=== PATIENT | female | born 1950 | race African-American/Black ===

== ENCOUNTER 2016-09-19 08:13 | Emergency (ER) | payer MEDICARE, OTHER ==
[~2016-09-19] VITALS: Ht 162.6 cm; Wt 57.0 kg
[~2016-09-19 08:13] MED LIST: ALBU25PO2 INH; AMBR10TA3 PO; ASPI-1035 PO; CALC667C4 PO; CARV3.1242 PO; CINA90TA PO; CLON0.1T PO; CLOP75TA33 PO; RENA VITE PO; SEVE800T8 PO
[2016-09-19] MEDS ORDERED: ACETAMINOPHEN 325MG TABLET PO ONE (09:00)
[2016-09-19 09:06] LABS: BASOPHILS % 0.8 % (0.0-2.0); DIFFERENTIAL COMMENT 0; EOSINOPHILS % 6.6 % (0.0-5.0); HEMATOCRIT. 35.9 % (36.0-48.0); HEMOGLOBIN. 11.4 g/dL (12.0-16.0); LYMPHOCYTES % 7.9 % (20.0-50.0); MEAN CORPUSCULAR HEMOGLOBIN 25.2 pg (28.0-32.0); MEAN CORPUSCULAR HGB CONC 31.8 g/dL (31.0-37.0); MEAN CORPUSCULAR VOLUME 79.2 fL (81.0-99.0); MEAN PLATELET VOLUME 7.5 fl (7.4-10.4); MONOCYTES % 5.6 % (2.0-8.0); NEUTROPHILS % 79.1 % (40.0-76.0); PLATELET 259 x1000/uL (130-400); RED BLOOD CELL COUNT 4.54 mill/uL (4.2-5.4); RED CELL DISTRIBUTION WIDTH 20.1 % (11.6-14.6); WHITE BLOOD COUNT 5.2 x1000/uL (4.5-11.0)
[2016-09-19 09:18] LABS: ALANINE AMINOTRANSFERASE 17 IU/L (13-61); ALBUMIN 2.9 g/dL (3.4-5.0); ANION GAP 13; CALCIUM 7.9 mg/dL (8.5-10.1); CARBON DIOXIDE 31 mEq/L (21-32); CHLORIDE 93 mEq/L (98-107); INDEX HEMOLYSI 1 (1-3); INDEX ICTERIC 1 (1-4); INDEX LIPEMIC 1 (1-3); UREA NITROGEN BLOOD 11 mg/dL (7-21); eGFR 10 mL/min (>60)
[2016-09-19 12:12] VITALS: BP 135/76
== END 2016-09-19 13:21 | disposition home or self-care (01) ==
LOC: ER 08:41
DX: S00.83XA Contusion of other part of head, initial encounter (principal); S70.02XA Contusion of left hip, initial encounter; S80.02XA Contusion of left knee, initial encounter; W10.8XXA Fall (on) (from) other stairs and steps, initial encounter; Y93.89 Activity, other specified; Y92.89 Other specified places as the place of occurrence of the external cause; E87.1 Hypo-osmolality and hyponatremia; R91.1 Solitary pulmonary nodule; I12.0 Hypertensive chronic kidney disease with stage 5 chronic kidney disease or end stage renal disease; N18.6 End stage renal disease; Z99.2 Dependence on renal dialysis
CPT/HCPCS: 36415; 70450; 71010; 73502; 73562; 80053; 85025; 93005; 99285

== ENCOUNTER 2016-09-21 03:31 | Emergency (ER) | payer MEDICARE, OTHER ==
[~2016-09-21] VITALS: Ht 162.6 cm; Wt 57.0 kg
[2016-09-21 04:25] LABS: BASOPHILS % 1.1 % (0.0-2.0); DIFFERENTIAL COMMENT 0; EOSINOPHILS % 7.5 % (0.0-5.0); HEMOGLOBIN. 10.8 g/dL (12.0-16.0); LYMPHOCYTES % 9.1 % (20.0-50.0); MEAN CORPUSCULAR HEMOGLOBIN 25.1 pg (28.0-32.0); MEAN CORPUSCULAR HGB CONC 31.7 g/dL (31.0-37.0); MEAN CORPUSCULAR VOLUME 79.1 fL (81.0-99.0); MEAN PLATELET VOLUME 7.5 fl (7.4-10.4); MONOCYTES % 7.6 % (2.0-8.0); NEUTROPHILS % 74.7 % (40.0-76.0); PLATELET 272 x1000/uL (130-400); RED BLOOD CELL COUNT 4.29 mill/uL (4.2-5.4); RED CELL DISTRIBUTION WIDTH 19.8 % (11.6-14.6); WHITE BLOOD COUNT 6.2 x1000/uL (4.5-11.0)
[2016-09-21 04:39] LABS: ALANINE AMINOTRANSFERASE 15 IU/L (13-61); ALBUMIN 2.9 g/dL (3.4-5.0); ANION GAP 17; CALCIUM 8.6 mg/dL (8.5-10.1); CARBON DIOXIDE 25 mEq/L (21-32); CHLORIDE 90 mEq/L (98-107); INDEX HEMOLYSI 1 (1-3); INDEX ICTERIC 1 (1-4); INDEX LIPEMIC 1 (1-3); UREA NITROGEN BLOOD 28 mg/dL (7-21); eGFR 5 mL/min (>60)
[2016-09-21 05:18] VITALS: BP 124/68
== END 2016-09-21 06:01 | disposition home or self-care (01) ==
LOC: ER 03:31
DX: M25.562 Pain in left knee (principal); I12.9 Hypertensive chronic kidney disease with stage 1 through stage 4 chronic kidney disease, or unspecified chronic kidney disease; I25.2 Old myocardial infarction; N18.9 Chronic kidney disease, unspecified; J44.9 Chronic obstructive pulmonary disease, unspecified; Z99.2 Dependence on renal dialysis; Z95.5 Presence of coronary angioplasty implant and graft; Z79.82 Long term (current) use of aspirin; W18.39XA Other fall on same level, initial encounter; Y93.89 Activity, other specified; Y92.89 Other specified places as the place of occurrence of the external cause; Y99.8 Other external cause status
CPT/HCPCS: 36415; 71010; 73562; 80053; 85025; 99285

== ENCOUNTER 2016-11-25 10:18 | Emergency (ER) | payer MEDICARE, MEDICAID ==
[~2016-11-25] VITALS: Ht 162.6 cm; Wt 59.0 kg
[~2016-11-25 10:18] MED LIST changes: -ASPI-1035 PO; +ASPI-1159 PO
[2016-11-25 11:32] LABS: BASOPHILS % 0.9 % (0.0-2.0); EOSINOPHILS % 8.5 % (0.0-5.0); HEMATOCRIT. 31.1 % (36.0-48.0); HEMOGLOBIN. 9.6 g/dL (12.0-16.0); LYMPHOCYTES % 11.3 % (20.0-50.0); MEAN CORPUSCULAR HEMOGLOBIN 24.5 pg (28.0-32.0); MEAN CORPUSCULAR VOLUME 79.5 fL (81.0-99.0); MEAN PLATELET VOLUME 7.5 fl (7.4-10.4); MONOCYTES % 7.6 % (2.0-8.0); NEUTROPHILS % 71.7 % (40.0-76.0); PLATELET 199 x1000/uL (130-400); RED BLOOD CELL COUNT 3.91 mill/uL (4.2-5.4); RED CELL DISTRIBUTION WIDTH 19.6 % (11.6-14.6)
[2016-11-25] MEDS ORDERED: SODIUM CHLORIDE 0.9% 250 ML IV ONE (11:45)
[2016-11-25] MEDS ORDERED: CARVEDILOL 3.125 MG TABLET PO ONE (11:45)
[2016-11-25 11:49] LABS: TROPONIN I 0.12 ng/mL (0.00-0.04)
[2016-11-25] MEDS ORDERED: ASPIRIN 81MG TABLET PO ONE (12:30)
[2016-11-25 12:34] LABS: PROTHROMBIN TIME 10.3 sec
[2016-11-25] MEDS ORDERED: ALBUTEROL (0.083%) 2.5MG/3ML NEB HHN STA (14:03)
[2016-11-25 17:20] VITALS: BP 145/91
== END 2016-11-25 17:21 | disposition home or self-care (01) ==
LOC: ER 13:20 → ENRESERV 16:22 → CANRESERV 16:22 → CANBEDREQ 17:20 → ER 17:21
DX: E86.9 Volume depletion, unspecified (principal); I25.119 Atherosclerotic heart disease of native coronary artery with unspecified angina pectoris; R79.89 Other specified abnormal findings of blood chemistry; I27.2 Other secondary pulmonary hypertension; I13.2 Hypertensive heart and chronic kidney disease with heart failure and with stage 5 chronic kidney disease, or end stage renal disease; N18.6 End stage renal disease; J44.9 Chronic obstructive pulmonary disease, unspecified; E78.00 Pure hypercholesterolemia, unspecified; Z99.2 Dependence on renal dialysis; Z95.5 Presence of coronary angioplasty implant and graft
CPT/HCPCS: 36415; 71010; 80048; 83880; 84484; 85025; 85610; 93005; 94640; 96360; 99285; J7050; J7611

== ENCOUNTER 2016-12-07 13:18 | Emergency (ER) | payer MEDICARE, MEDICAID ==
[~2016-12-07] VITALS: Ht 167.6 cm; Wt 70.0 kg
[~2016-12-07 13:18] MED LIST changes: +AMIO200T39 PO
[2016-12-07 15:09] LABS: BASOPHILS % 0.7 % (0.0-2.0); EOSINOPHILS % 6.9 % (0.0-5.0); HEMATOCRIT. 30.8 % (36.0-48.0); HEMOGLOBIN. 9.8 g/dL (12.0-16.0); LYMPHOCYTES % 8.7 % (20.0-50.0); MEAN CORPUSCULAR HEMOGLOBIN 25.2 pg (28.0-32.0); MEAN CORPUSCULAR VOLUME 79.1 fL (81.0-99.0); MEAN PLATELET VOLUME 7.5 fl (7.4-10.4); MONOCYTES % 9.9 % (2.0-8.0); NEUTROPHILS % 73.8 % (40.0-76.0); PLATELET 266 x1000/uL (130-400); RED CELL DISTRIBUTION WIDTH 19.4 % (11.6-14.6)
[2016-12-07 15:13] LABS: CARBON DIOXIDE 36 mEq/L (21-32); CHLORIDE 96 mEq/L (98-107)
[2016-12-07 15:15] LABS: PARTIAL THROMBOPLASTIN TIME 26.8 sec (24.0-34.0); PROTHROMBIN TIME 10.1 sec
[2016-12-07 15:17] LABS: PHOSPHORUS 3.1 mg/dL (2.5-4.9)
[2016-12-07 15:19] LABS: TROPONIN I 0.05 ng/mL (0.00-0.04)
[2016-12-07 16:55] VITALS: BP 124/77
== END 2016-12-07 18:10 | disposition home or self-care (01) ==
LOC: ER 13:30 → CANBEDREQ 20:02
DX: J44.1 Chronic obstructive pulmonary disease with (acute) exacerbation (principal); I12.9 Hypertensive chronic kidney disease with stage 1 through stage 4 chronic kidney disease, or unspecified chronic kidney disease; N18.9 Chronic kidney disease, unspecified; I11.0 Hypertensive heart disease with heart failure; I50.9 Heart failure, unspecified; Z99.2 Dependence on renal dialysis; Z79.82 Long term (current) use of aspirin
CPT/HCPCS: 36415; 71010; 80053; 83690; 83735; 84100; 84443; 84484; 85025; 85610; 85730; 93005; 99285

== ENCOUNTER 2016-12-16 13:28 | Emergency (ER) | payer MEDICARE, MEDICAID ==
[~2016-12-16] VITALS: Ht 162.6 cm; Wt 70.0 kg
[2016-12-16] MEDS ORDERED: METHYLPREDNISOLONE SOD SUCC 125 MG/2 ML VIAL IV STA (13:45)
[2016-12-16] MEDS ORDERED: IPRATROPIUM BROMIDE (0.02%) 0.5MG/2.5ML NEB HHN STA (13:45)
[2016-12-16] MEDS ORDERED: ALBUTEROL (0.083%) 2.5MG/3ML NEB HHN STA (13:45)
[2016-12-16 14:11] LABS: BASOPHILS % 0.7 % (0.0-2.0); EOSINOPHILS % 8.6 % (0.0-5.0); HEMATOCRIT. 33.6 % (36.0-48.0); HEMOGLOBIN. 10.4 g/dL (12.0-16.0); LYMPHOCYTES % 8.2 % (20.0-50.0); MEAN CORPUSCULAR VOLUME 80.5 fL (81.0-99.0); MEAN PLATELET VOLUME 7.6 fl (7.4-10.4); MONOCYTES % 8.7 % (2.0-8.0); NEUTROPHILS % 73.8 % (40.0-76.0); PLATELET 206 x1000/uL (130-400); RED BLOOD CELL COUNT 4.18 mill/uL (4.2-5.4); RED CELL DISTRIBUTION WIDTH 20.4 % (11.6-14.6)
[2016-12-16 14:18] LABS: PROTHROMBIN TIME 10.2 sec
[2016-12-16 14:26] LABS: CARBON DIOXIDE 34 mEq/L (21-32); CHLORIDE 99 mEq/L (98-107); TROPONIN I 0.02 ng/mL (0.00-0.04)
[2016-12-16 18:36] VITALS: BP 116/68
== END 2016-12-16 19:12 | disposition home or self-care (01) ==
LOC: ER 13:41 → CANBEDREQ 22:50
DX: J44.1 Chronic obstructive pulmonary disease with (acute) exacerbation (principal); I50.9 Heart failure, unspecified; I11.0 Hypertensive heart disease with heart failure; N28.9 Disorder of kidney and ureter, unspecified; D64.9 Anemia, unspecified; Z99.2 Dependence on renal dialysis; Z79.82 Long term (current) use of aspirin
CPT/HCPCS: 36415; 71010; 80053; 83880; 84484; 85025; 85610; 93005; 94644; 96374; 99285; J2930; J7611

== ENCOUNTER 2017-01-06 13:18 | Inpatient (IN) | payer MEDICARE, MEDICAID ==
[~2017-01-06] VITALS: Ht 157.5 cm; Wt 63.6 kg
[~2017-01-06 13:18] MED LIST changes: +AMI2 PO; -AMIO200T39 PO; +IOHEXOL-350 100 ML BOTTLE ONE; +SODIUM CHLORIDE 0.9% 10ML VIAL ONE
[2017-01-06] MEDS ORDERED: METHYLPREDNISOLONE SOD SUCC 125 MG/2 ML VIAL IV STA (13:25)
[2017-01-06] MEDS ORDERED: NITROGLYCERIN OINT 1GM/INCH UDPKT TD STA (13:25)
[2017-01-06] MEDS ORDERED: MAGNESIUM 2 G PREMIX 50 ML IV ONE (13:30)
[2017-01-06] MEDS ORDERED: IPRATROPIUM/ALBUTEROL 0.5-3(2.5)MG/3ML NEB HHN ONE (13:30)
[2017-01-06 14:15] LABS: BASOPHILS % 0.9 % (0.0-2.0); EOSINOPHILS % 5.3 % (0.0-5.0); HEMATOCRIT. 32.4 % (36.0-48.0); HEMOGLOBIN. 10.3 g/dL (12.0-16.0); LYMPHOCYTES % 9.1 % (20.0-50.0); MEAN CORPUSCULAR HEMOGLOBIN 25.5 pg (28.0-32.0); MEAN CORPUSCULAR VOLUME 80.4 fL (81.0-99.0); MEAN PLATELET VOLUME 7.6 fl (7.4-10.4); MONOCYTES % 8.5 % (2.0-8.0); NEUTROPHILS % 76.2 % (40.0-76.0); PLATELET 246 x1000/uL (130-400); RED BLOOD CELL COUNT 4.03 mill/uL (4.2-5.4); RED CELL DISTRIBUTION WIDTH 20.1 % (11.6-14.6)
[2017-01-06 14:24] LABS: PARTIAL THROMBOPLASTIN TIME 29.2 sec (23.4-31.0); PROTHROMBIN TIME 10.6 sec (9.4-11.6)
[2017-01-06 14:32] LABS: CARBON DIOXIDE 33 mEq/L (21-32); CHLORIDE 99 mEq/L (98-107); TROPONIN I 0.02 ng/mL (0.00-0.04)
[2017-01-06 15:59] LABS: BG BASE EXCESS 5.2 mmol/L (-2.0-2.0); BG CARBOXYHEMOGLOBIN 0.7 % (0.5-1.5); BG FRACTION INSPIRED OXYGEN 50; BG METHEMOGLOBIN 0.1 % (0.0-1.5); BG OXYHEMOGLOBIN 98.2 % (94.0-97.0); BG PCO2 57.9 mmHg (35.0-45.0); BG PO2 151.2 mmHg (75.0-100.0); BG SAMPLE SITE RIGHT BRACHIAL; BG TOTAL HEMOGLOBIN 11.3 g/dL (12.0-18.0); BG VENT MODE MASK - BIPAP; BG VENT RATE 16 set
[2017-01-06] MEDS ORDERED: METHYLPREDNISOLONE SOD SUCC 40 MG/ML VIAL IV SCH (16:30)
[2017-01-06] MEDS ORDERED: IPRATROPIUM/ALBUTEROL 0.5-3(2.5)MG/3ML NEB INH SCH (16:45)
[2017-01-06] MEDS ORDERED: CLONIDINE 0.1MG TABLET PO PRN (16:45)
[2017-01-06] MEDS ORDERED: ENOXAPARIN 40MG/0.4ML SYR SUBCUT SCH (16:45)
[2017-01-06] MEDS ORDERED: DOCUSATE SODIUM 100MG CAPSULE PO PRN (16:45)
[2017-01-06 16:50] VITALS: BP 150/77
[2017-01-06] MEDS ORDERED: MORPHINE SULFATE 4 MG/ML CPJ (NOT FOR IM USE) IV PRN (16:52)
[2017-01-06 17:24] VITALS: BP 150/77
[2017-01-06 18:00] VITALS: BP 104/76
[2017-01-06] MEDS: ENOXAPARIN 30MG/0.3ML SYR SUBCUT SCH (18:06)
[2017-01-06] MEDS: METHYLPREDNISOLONE SOD SUCC 125 MG/2 ML VIAL IV SCH ×2 (18:06→23:42)
[2017-01-06] MEDS: PIPERACILLIN/TAZ 3.375G PREMIX 50 ML IV SCH (18:06)
[2017-01-06] MEDS: IPRATROPIUM/ALBUTEROL 0.5-3(2.5)MG/3ML NEB HHN SCH (20:55)
[2017-01-06 21:01] VITALS: BP 140/76
[2017-01-06 22:00] VITALS: BP 134/67
[2017-01-07] VITALS (12 sets, daily range): BP systolic 111–143; BP diastolic 57–80
[2017-01-07] MEDS: IPRATROPIUM/ALBUTEROL 0.5-3(2.5)MG/3ML NEB HHN SCH ×6 (00:13→20:40)
[2017-01-07] MEDS: PIPERACILLIN/TAZ 3.375G PREMIX 50 ML IV SCH ×3 (02:33→18:09)
[2017-01-07 05:07] LABS: HEMATOCRIT. 31.1 % (36.0-48.0); HEMOGLOBIN. 9.5 g/dL (12.0-16.0); MEAN CORPUSCULAR VOLUME 81.5 fL (81.0-99.0); MEAN PLATELET VOLUME 7.4 fl (7.4-10.4); PLATELET 257 x1000/uL (130-400); RED BLOOD CELL COUNT 3.82 mill/uL (4.2-5.4); RED CELL DISTRIBUTION WIDTH 20.6 % (11.6-14.6)
[2017-01-07] MEDS: METHYLPREDNISOLONE SOD SUCC 125 MG/2 ML VIAL IV SCH ×4 (05:09→23:27)
[2017-01-07 05:44] LABS: CARBON DIOXIDE 29 mEq/L (21-32); CHLORIDE 96 mEq/L (98-107); HDL CHOLESTEROL 124 mg/dL (40-59); LDL CHOLESTEROL 62 mg/dL (5-100); TROPONIN I < 0.02 ng/mL (0.00-0.04)
[2017-01-07 10:04] LABS: NUCLEATED RED BLOOD CELLS 1 /100 WBC; PLATELET ESTIMATE NORMAL
[2017-01-07] MEDS ORDERED: SILV20CR13 TP (13:38)
[2017-01-07] MEDS ORDERED: GABA-531 PO (13:38)
[2017-01-07] MEDS ORDERED: CARV3.1242 PO (13:38)
[2017-01-07] MEDS: LETAIRIS 10 MG TABLET XX SCH (14:33)
[2017-01-07] MEDS: ENOXAPARIN 30MG/0.3ML SYR SUBCUT SCH (18:00)
[2017-01-07] MEDS ORDERED: CLONIDINE 0.1MG TABLET PO PRN (18:45)
[2017-01-07] MEDS: GUAIFENESIN 200MG/10ML SUGAR FREE UDC PO PRN (18:52)
[2017-01-07] MEDS: EPOETIN ALFA 10000UNITS/ML VIAL SUBCUT SCH (20:49)
[2017-01-08] VITALS (12 sets, daily range): BP systolic 112–150; BP diastolic 59–96
[2017-01-08] MEDS: IPRATROPIUM/ALBUTEROL 0.5-3(2.5)MG/3ML NEB HHN SCH ×6 (00:33→20:38)
[2017-01-08] MEDS: PIPERACILLIN/TAZ 3.375G PREMIX 50 ML IV SCH ×2 (02:39→09:35)
[2017-01-08] MEDS: GUAIFENESIN 200MG/10ML SUGAR FREE UDC PO PRN ×2 (02:42→09:21)
[2017-01-08] MEDS: METHYLPREDNISOLONE SOD SUCC 125 MG/2 ML VIAL IV SCH ×4 (05:24→23:14)
[2017-01-08 05:47] LABS: HEMATOCRIT. 31.2 % (36.0-48.0); HEMOGLOBIN. 9.7 g/dL (12.0-16.0); MEAN CORPUSCULAR HEMOGLOBIN 25.3 pg (28.0-32.0); MEAN CORPUSCULAR VOLUME 81.2 fL (81.0-99.0); MEAN PLATELET VOLUME 7.8 fl (7.4-10.4); PLATELET 288 x1000/uL (130-400); RED BLOOD CELL COUNT 3.85 mill/uL (4.2-5.4); RED CELL DISTRIBUTION WIDTH 20.3 % (11.6-14.6)
[2017-01-08 07:12] LABS: T4 FREE 1.57 ng/dL (0.76-1.46)
[2017-01-08 07:57] LABS: PLATELET ESTIMATE NORMAL
[2017-01-08] MEDS ORDERED: CARVEDILOL 3.125 MG TABLET PO SCH (09:00)
[2017-01-08] MEDS ORDERED: SILVER SULFADIAZINE 1% CREAM 25GM TOP SCH (09:00)
[2017-01-08] MEDS: LETAIRIS 10 MG TABLET XX SCH (09:05)
[2017-01-08] MEDS: CLOPIDOGREL 75MG TABLET PO SCH (09:05)
[2017-01-08] MEDS: FOLIC ACID/VITAMIN B COMP W-C TABLET PO SCH (09:06)
[2017-01-08] MEDS: CINACALCET HCL 90MG TABLET PO SCH (09:06)
[2017-01-08] MEDS: ASPIRIN 81MG EC TABLET PO SCH (09:06)
[2017-01-08] MEDS: GABAPENTIN 300MG CAPSULE PO SCH ×3 (09:06→17:48)
[2017-01-08] MEDS: CARVEDILOL 3.125 MG TABLET PO SCH ×2 (09:06→17:49)
[2017-01-08] MEDS: SILVER SULFADIAZINE 1% CREAM 25GM TOP SCH ×2 (09:07→20:49)
[2017-01-08] MEDS: SEVELAMER CARBONATE 800 MG TABLET PO SCH ×3 (09:18→17:48)
[2017-01-08] MEDS: ENOXAPARIN 30MG/0.3ML SYR SUBCUT SCH (17:50)
[2017-01-08] MEDS: PIPERACILLIN/TAZ 2.25G PREMIX 50 ML IV SCH (17:54)
[2017-01-09] VITALS (13 sets, daily range): BP systolic 118–149; BP diastolic 65–95
[2017-01-09] MEDS: IPRATROPIUM/ALBUTEROL 0.5-3(2.5)MG/3ML NEB HHN SCH ×5 (00:42→20:20)
[2017-01-09] MEDS: PIPERACILLIN/TAZ 2.25G PREMIX 50 ML IV SCH ×3 (01:00→17:25)
[2017-01-09] MEDS: METHYLPREDNISOLONE SOD SUCC 125 MG/2 ML VIAL IV SCH (04:30)
[2017-01-09] MEDS: ACETAMINOPHEN 325MG TABLET PO PRN (04:36)
[2017-01-09 06:19] LABS: HEMOGLOBIN. 9.7 g/dL (12.0-16.0); MEAN CORPUSCULAR VOLUME 80.3 fL (81.0-99.0); PLATELET 303 x1000/uL (130-400); RED BLOOD CELL COUNT 3.87 mill/uL (4.2-5.4)
[2017-01-09] MEDS: CARVEDILOL 3.125 MG TABLET PO SCH ×2 (08:02→17:32)
[2017-01-09] MEDS: CLOPIDOGREL 75MG TABLET PO SCH (08:02)
[2017-01-09] MEDS: GABAPENTIN 300MG CAPSULE PO SCH ×3 (08:02→17:25)
[2017-01-09] MEDS: SEVELAMER CARBONATE 800 MG TABLET PO SCH ×3 (08:03→17:30)
[2017-01-09] MEDS: FOLIC ACID/VITAMIN B COMP W-C TABLET PO SCH (08:03)
[2017-01-09] MEDS: ASPIRIN 81MG EC TABLET PO SCH (08:03)
[2017-01-09] MEDS: CINACALCET HCL 90MG TABLET PO SCH (08:03)
[2017-01-09] MEDS: LETAIRIS 10 MG TABLET XX SCH (08:05)
[2017-01-09] MEDS: SILVER SULFADIAZINE 1% CREAM 25GM TOP SCH ×2 (08:05→21:00)
[2017-01-09 13:53] LABS: PLATELET ESTIMATE NORMAL
[2017-01-09] MEDS ORDERED: METHYLPREDNISOLONE SOD SUCC 125 MG/2 ML VIAL IV SCH (14:00)
[2017-01-09] MEDS ORDERED: MORPHINE SULFATE 2 MG/ML CPJ (NOT FOR IM USE) IV PRN (14:50)
[2017-01-09] MEDS: ENOXAPARIN 30MG/0.3ML SYR SUBCUT SCH (17:25)
[2017-01-09] MEDS: PREDNISONE 20MG TABLET PO SCH (17:31)
[2017-01-09] MEDS: BUDESONIDE 0.5MG/2ML NEB HHN SCH (20:21)
[2017-01-10] VITALS (12 sets, daily range): BP systolic 109–136; BP diastolic 59–87
[2017-01-10] MEDS: IPRATROPIUM/ALBUTEROL 0.5-3(2.5)MG/3ML NEB HHN SCH ×6 (00:24→20:08)
[2017-01-10] MEDS: PIPERACILLIN/TAZ 2.25G PREMIX 50 ML IV SCH ×3 (01:21→18:11)
[2017-01-10 06:41] LABS: BASOPHILS % 0.2 % (0.0-2.0); HEMATOCRIT. 30.7 % (36.0-48.0); HEMOGLOBIN. 9.7 g/dL (12.0-16.0); LYMPHOCYTES % 8.2 % (20.0-50.0); MEAN CORPUSCULAR HEMOGLOBIN 25.5 pg (28.0-32.0); MEAN CORPUSCULAR VOLUME 80.6 fL (81.0-99.0); MEAN PLATELET VOLUME 7.6 fl (7.4-10.4); MONOCYTES % 8.5 % (2.0-8.0); NEUTROPHILS % 83.1 % (40.0-76.0); PLATELET 304 x1000/uL (130-400); RED BLOOD CELL COUNT 3.81 mill/uL (4.2-5.4)
[2017-01-10] MEDS: SEVELAMER CARBONATE 800 MG TABLET PO SCH ×3 (08:00→18:12)
[2017-01-10] MEDS: BUDESONIDE 0.5MG/2ML NEB HHN SCH ×2 (08:19→20:07)
[2017-01-10] MEDS: ASPIRIN 81MG EC TABLET PO SCH (08:41)
[2017-01-10] MEDS: CARVEDILOL 3.125 MG TABLET PO SCH ×2 (08:41→17:00)
[2017-01-10] MEDS: FOLIC ACID/VITAMIN B COMP W-C TABLET PO SCH (08:41)
[2017-01-10] MEDS: GABAPENTIN 300MG CAPSULE PO SCH ×3 (08:41→18:13)
[2017-01-10] MEDS: CINACALCET HCL 90MG TABLET PO SCH (08:42)
[2017-01-10] MEDS: CLOPIDOGREL 75MG TABLET PO SCH (08:42)
[2017-01-10] MEDS: PREDNISONE 20MG TABLET PO SCH ×2 (08:42→18:14)
[2017-01-10] MEDS: LETAIRIS 10 MG TABLET XX SCH (08:43)
[2017-01-10] MEDS: SILVER SULFADIAZINE 1% CREAM 25GM TOP SCH ×2 (08:44→20:52)
[2017-01-10 08:59] LABS: T4 FREE 1.62 ng/dL (0.76-1.46)
[2017-01-10] MEDS ORDERED: CLOPIDOGREL 75MG TABLET PO SCH (09:00)
[2017-01-10] MEDS ORDERED: IODIXANOL 320MG/ML 100 ML BOTTLE IV ONE ×2 (09:04→09:49)
[2017-01-10] MEDS ORDERED: LIDOCAINE HCL 1% 20ML VIAL (Pyxis) INJ ONE (09:04)
[2017-01-10] MEDS ORDERED: MIDAZOLAM HCL 2 MG/2 ML VIAL ONE (09:17)
[2017-01-10] MEDS ORDERED: FENTANYL CITRATE/PF 50MCG/ML 2ML VIAL ONE (09:17)
[2017-01-10] MEDS ORDERED: HEPARIN SODIUM 1,000 UNIT/1ML VIAL IV ONE (09:33)
[2017-01-10] MEDS ORDERED: ACETAMINOPHEN 325MG TABLET PO PRN (10:30)
[2017-01-10] MEDS ORDERED: ATROPINE SULFATE 1MG/10ML SYR IV PRN (10:30)
[2017-01-10] MEDS: ACETAMINOPHEN 325MG TABLET PO PRN (15:23)
[2017-01-10 16:42] LABS: CREATINE KINASE MB FRACTION 2.5 ng/mL (0.5-3.6); TROPONIN I 0.24 ng/mL (0.00-0.04)
[2017-01-10] MEDS: ENOXAPARIN 30MG/0.3ML SYR SUBCUT SCH (18:13)
[2017-01-10] MEDS: EPOETIN ALFA 10000UNITS/ML VIAL SUBCUT SCH (20:52)
[2017-01-10 23:36] LABS: CREATINE KINASE MB FRACTION 2.5 ng/mL (0.5-3.6); TROPONIN I 0.27 ng/mL (0.00-0.04)
[2017-01-11] VITALS (9 sets, daily range): BP systolic 91–150; BP diastolic 50–85
[2017-01-11] MEDS: IPRATROPIUM/ALBUTEROL 0.5-3(2.5)MG/3ML NEB HHN SCH ×6 (00:01→20:08)
[2017-01-11] MEDS: PIPERACILLIN/TAZ 2.25G PREMIX 50 ML IV SCH ×3 (01:10→18:00)
[2017-01-11 06:43] LABS: HEMATOCRIT. 32.1 % (36.0-48.0); HEMOGLOBIN. 10.1 g/dL (12.0-16.0); MEAN CORPUSCULAR HEMOGLOBIN 25.3 pg (28.0-32.0); MEAN CORPUSCULAR VOLUME 80.7 fL (81.0-99.0); MEAN PLATELET VOLUME 7.7 fl (7.4-10.4); PLATELET 311 x1000/uL (130-400); RED BLOOD CELL COUNT 3.97 mill/uL (4.2-5.4); RED CELL DISTRIBUTION WIDTH 20.2 % (11.6-14.6)
[2017-01-11 07:16] LABS: CREATINE KINASE MB FRACTION 2.2 ng/mL (0.5-3.6); TROPONIN I 0.22 ng/mL (0.00-0.04)
[2017-01-11] MEDS: SEVELAMER CARBONATE 800 MG TABLET PO SCH ×4 (08:00→19:10)
[2017-01-11] MEDS: CARVEDILOL 3.125 MG TABLET PO SCH ×3 (08:04→17:00)
[2017-01-11] MEDS: FOLIC ACID/VITAMIN B COMP W-C TABLET PO SCH ×2 (08:04→09:16)
[2017-01-11] MEDS: ASPIRIN 81MG EC TABLET PO SCH ×2 (08:04→09:07)
[2017-01-11] MEDS: CINACALCET HCL 90MG TABLET PO SCH ×2 (08:05→09:17)
[2017-01-11] MEDS: PREDNISONE 20MG TABLET PO SCH ×3 (08:05→17:00)
[2017-01-11] MEDS: LETAIRIS 10 MG TABLET XX SCH ×2 (08:05→09:18)
[2017-01-11] MEDS: CLOPIDOGREL 75MG TABLET PO SCH ×2 (08:05→09:07)
[2017-01-11] MEDS: GABAPENTIN 300MG CAPSULE PO SCH ×4 (08:05→17:00)
[2017-01-11] MEDS: SILVER SULFADIAZINE 1% CREAM 25GM TOP SCH (08:35)
[2017-01-11] MEDS: BUDESONIDE 0.5MG/2ML NEB HHN SCH (09:17)
[2017-01-11] MEDS ORDERED: THROMBIN (BOVINE) 5000 UNITS/VIAL TOP ONE ×2 (09:34→15:12)
[2017-01-11] MEDS ORDERED: BUPIVACAINE HCL/PF 0.25% (2.5MG/ML) 10ML ONE (09:37)
[2017-01-11] MEDS ORDERED: GELATIN SPONGE,ABSORBABLE SZ 100 ONE ×2 (09:40→15:12)
[2017-01-11] MEDS ORDERED: BACITRACIN ZINC 15GM TUBE TOP ONE (09:40)
[2017-01-11] MEDS ORDERED: BACITRACIN 50,000 UNITS/VIAL ONE (09:41)
[2017-01-11] MEDS ORDERED: NORMAL SALINE 0.9% 10 ML SYR ONE (09:41)
[2017-01-11] MEDS ORDERED: HEPARIN SODIUM 1,000 UNIT/1ML VIAL IV ONE (09:41)
[2017-01-11] MEDS ORDERED: LIDOCAINE HCL 1% 20ML VIAL (Pyxis) INJ ONE (09:41)
[2017-01-11] MEDS ORDERED: MORPHINE SULFATE/PF 1MG/ML 10ML AMP ONE (13:58)
[2017-01-11] MEDS ORDERED: HYDROMORPHONE HCL/PF 2MG/ML CPJ IV PRN (15:00)
[2017-01-11] MEDS ORDERED: MEPERIDINE HCL/PF 25MG/ML CPJ IV PRN (15:00)
[2017-01-11] MEDS ORDERED: ONDANSETRON HCL 4MG/2ML VIAL IV PRN (15:00)
[2017-01-11] MEDS ORDERED: LABETALOL HCL 20MG/4ML CARPUJECT IV PRN (15:00)
[2017-01-11] MEDS: ENOXAPARIN 30MG/0.3ML SYR SUBCUT SCH (19:00)
[2017-01-11] MEDS: ONDANSETRON HCL 4MG/2ML VIAL IV PRN (20:11)
[2017-01-11 22:53] LABS: PLATELET ESTIMATE NORMAL
[2017-01-12] VITALS (15 sets, daily range): BP systolic 81–111; BP diastolic 39–69
[2017-01-12] MEDS: IPRATROPIUM/ALBUTEROL 0.5-3(2.5)MG/3ML NEB HHN SCH ×6 (00:10→20:46)
[2017-01-12] MEDS: PIPERACILLIN/TAZ 2.25G PREMIX 50 ML IV SCH ×3 (03:00→19:24)
[2017-01-12] MEDS: SILVER SULFADIAZINE 1% CREAM 25GM TOP SCH ×3 (03:10→23:37)
[2017-01-12 07:39] LABS: BASOPHILS % 0.2 % (0.0-2.0); EOSINOPHILS % 0.3 % (0.0-5.0); LYMPHOCYTES % 10.7 % (20.0-50.0); MEAN CORPUSCULAR HEMOGLOBIN 25.4 pg (28.0-32.0); MEAN CORPUSCULAR VOLUME 82.8 fL (81.0-99.0); MONOCYTES % 9.6 % (2.0-8.0); NEUTROPHILS % 79.2 % (40.0-76.0); PLATELET 254 x1000/uL (130-400); RED BLOOD CELL COUNT 2.83 mill/uL (4.2-5.4); RED CELL DISTRIBUTION WIDTH 20.7 % (11.6-14.6)
[2017-01-12 07:42] LABS: HEMATOCRIT. 23.5 % (36.0-48.0); HEMOGLOBIN. 7.2 g/dL (12.0-16.0)
[2017-01-12] MEDS: FOLIC ACID/VITAMIN B COMP W-C TABLET PO SCH (08:28)
[2017-01-12] MEDS: SEVELAMER CARBONATE 800 MG TABLET PO SCH ×3 (08:28→19:24)
[2017-01-12] MEDS: ASPIRIN 81MG EC TABLET PO SCH (08:28)
[2017-01-12] MEDS: CLOPIDOGREL 75MG TABLET PO SCH (08:29)
[2017-01-12] MEDS: CINACALCET HCL 90MG TABLET PO SCH (08:29)
[2017-01-12] MEDS: GABAPENTIN 300MG CAPSULE PO SCH ×3 (08:29→17:00)
[2017-01-12] MEDS: PREDNISONE 20MG TABLET PO SCH (08:29)
[2017-01-12] MEDS: CARVEDILOL 3.125 MG TABLET PO SCH ×2 (08:29→17:00)
[2017-01-12] MEDS: LETAIRIS 10 MG TABLET XX SCH (08:31)
[2017-01-12] MEDS: BUDESONIDE 0.5MG/2ML NEB HHN SCH ×2 (09:19→20:46)
[2017-01-12] MEDS ORDERED: HEPARIN 100 UNITS/1 ML VIAL ONE (14:46)
[2017-01-12] MEDS ORDERED: PAPAVERINE HCL 30 MG/ML 2ML IV ONE (14:46)
[2017-01-12] MEDS ORDERED: GELATIN SPONGE,ABSORBABLE SZ 100 ONE (14:46)
[2017-01-12] MEDS ORDERED: BACITRACIN ZINC 15GM TUBE TOP ONE (14:46)
[2017-01-12] MEDS ORDERED: BUPIVACAINE HCL/PF 0.5% (5MG/ML) 10ML ONE (14:47)
[2017-01-12] MEDS ORDERED: THROMBIN (BOVINE) 5000 UNITS/VIAL TOP ONE (14:47)
[2017-01-12] MEDS ORDERED: BACITRACIN 50,000 UNITS/VIAL ONE (14:47)
[2017-01-12] MEDS ORDERED: LIDOCAINE HCL 1% 20ML VIAL (Pyxis) INJ ONE ×2 (14:47→15:22)
[2017-01-12] MEDS ORDERED: HEPARIN SODIUM 1,000 UNIT/1ML VIAL IV ONE (14:48)
[2017-01-12] MEDS ORDERED: NORMAL SALINE 0.9% 10 ML SYR ONE (14:48)
[2017-01-12] MEDS ORDERED: MIDAZOLAM HCL 2 MG/2 ML VIAL ONE (14:59)
[2017-01-12] MEDS ORDERED: FENTANYL CITRATE/PF 50MCG/ML 2ML VIAL ONE (14:59)
[2017-01-12] MEDS ORDERED: EPHEDRINE SULFATE 50MG/ML VIAL ONE (15:22)
[2017-01-12] MEDS ORDERED: SODIUM CHLORIDE 0.9% 10ML VIAL ONE (15:22)
[2017-01-12] MEDS ORDERED: DEXAMETHASONE 4MG/ML 1ML VIAL ONE (15:22)
[2017-01-12] MEDS ORDERED: PROPOFOL 200MG/20ML VIAL IV ONE ×2 (15:22→15:43)
[2017-01-12] MEDS ORDERED: SUCCINYLCHOLINE CHLORIDE 200MG/10ML VIAL IV ONE (15:22)
[2017-01-12] MEDS ORDERED: ONDANSETRON HCL 4MG/2ML VIAL ONE (15:24)
[2017-01-12] MEDS ORDERED: IOHEXOL-300 100 ML BOTTLE ONE (15:29)
[2017-01-12] MEDS ORDERED: ROCURONIUM BROMIDE 10MG/ML VIAL 5ML IV ONE (15:36)
[2017-01-12] MEDS ORDERED: HEPARIN 1000 UNITS/ML 10ML ONE (15:43)
[2017-01-12] MEDS ORDERED: MEPERIDINE HCL/PF 25MG/ML CPJ IV PRN (15:45)
[2017-01-12] MEDS ORDERED: HYDROMORPHONE HCL/PF 2MG/ML CPJ IV PRN (15:45)
[2017-01-12] MEDS ORDERED: ONDANSETRON HCL 4MG/2ML VIAL IV PRN (15:45)
[2017-01-12] MEDS ORDERED: LABETALOL HCL 20MG/4ML CARPUJECT IV PRN (15:45)
[2017-01-12] MEDS: ENOXAPARIN 30MG/0.3ML SYR SUBCUT SCH (18:00)
[2017-01-12 19:29] LABS: HEMATOCRIT 24.9 % (36.0-48.0); HEMOGLOBIN 7.8 g/dL (12.0-16.0)
[2017-01-12] MEDS: EPOETIN ALFA 10000UNITS/ML VIAL SUBCUT SCH (23:51)
[2017-01-13] VITALS (15 sets, daily range): BP systolic 95–122; BP diastolic 59–87
[2017-01-13] MEDS: IPRATROPIUM/ALBUTEROL 0.5-3(2.5)MG/3ML NEB HHN SCH ×5 (00:37→16:13)
[2017-01-13] MEDS: PIPERACILLIN/TAZ 2.25G PREMIX 50 ML IV SCH ×3 (04:08→18:41)
[2017-01-13 06:25] LABS: BASOPHILS % 0.3 % (0.0-2.0); EOSINOPHILS % 0.3 % (0.0-5.0); HEMATOCRIT. 26.1 % (36.0-48.0); HEMOGLOBIN. 8.2 g/dL (12.0-16.0); LYMPHOCYTES % 8.3 % (20.0-50.0); MEAN CORPUSCULAR HEMOGLOBIN 26.4 pg (28.0-32.0); MEAN CORPUSCULAR VOLUME 83.8 fL (81.0-99.0); MEAN PLATELET VOLUME 8.3 fl (7.4-10.4); MONOCYTES % 7.8 % (2.0-8.0); NEUTROPHILS % 83.3 % (40.0-76.0); PLATELET 225 x1000/uL (130-400); RED BLOOD CELL COUNT 3.12 mill/uL (4.2-5.4); RED CELL DISTRIBUTION WIDTH 18.5 % (11.6-14.6)
[2017-01-13] MEDS: FOLIC ACID/VITAMIN B COMP W-C TABLET PO SCH (09:00)
[2017-01-13] MEDS: CLOPIDOGREL 75MG TABLET PO SCH (09:00)
[2017-01-13] MEDS: ASPIRIN 81MG EC TABLET PO SCH (09:00)
[2017-01-13] MEDS: PREDNISONE 20MG TABLET PO SCH (09:00)
[2017-01-13] MEDS: GABAPENTIN 300MG CAPSULE PO SCH ×3 (09:00→18:41)
[2017-01-13] MEDS: CARVEDILOL 3.125 MG TABLET PO SCH ×2 (09:00→18:00)
[2017-01-13] MEDS: LETAIRIS 10 MG TABLET XX SCH (09:00)
[2017-01-13] MEDS: CINACALCET HCL 90MG TABLET PO SCH (09:00)
[2017-01-13] MEDS: SEVELAMER CARBONATE 800 MG TABLET PO SCH ×3 (09:04→18:41)
[2017-01-13] MEDS: SILVER SULFADIAZINE 1% CREAM 25GM TOP SCH ×2 (09:10→21:22)
[2017-01-13] MEDS: MORPHINE SULFATE 2 MG/ML CPJ (NOT FOR IM USE) IV PRN (10:49)
[2017-01-13] MEDS: ENOXAPARIN 30MG/0.3ML SYR SUBCUT SCH (18:00)
[2017-01-14] VITALS (12 sets, daily range): BP systolic 104–140; BP diastolic 55–81
[2017-01-14] MEDS: MORPHINE SULFATE 2 MG/ML CPJ (NOT FOR IM USE) IV PRN ×4 (03:47→20:15)
[2017-01-14 06:08] LABS: HEMOGLOBIN. 8.5 g/dL (12.0-16.0); MEAN CORPUSCULAR HEMOGLOBIN 26.7 pg (28.0-32.0); MEAN CORPUSCULAR VOLUME 84.5 fL (81.0-99.0); PLATELET 217 x1000/uL (130-400); RED CELL DISTRIBUTION WIDTH 19.3 % (11.6-14.6)
[2017-01-14] MEDS: IPRATROPIUM/ALBUTEROL 0.5-3(2.5)MG/3ML NEB HHN SCH ×5 (06:45→19:49)
[2017-01-14] MEDS: LETAIRIS 10 MG TABLET XX SCH (08:52)
[2017-01-14] MEDS: PREDNISONE 20MG TABLET PO SCH (08:53)
[2017-01-14] MEDS: CINACALCET HCL 90MG TABLET PO SCH (08:53)
[2017-01-14] MEDS: SEVELAMER CARBONATE 800 MG TABLET PO SCH ×3 (08:53→18:28)
[2017-01-14] MEDS: FOLIC ACID/VITAMIN B COMP W-C TABLET PO SCH (08:53)
[2017-01-14] MEDS: CLOPIDOGREL 75MG TABLET PO SCH (08:53)
[2017-01-14] MEDS: ASPIRIN 81MG EC TABLET PO SCH (08:53)
[2017-01-14] MEDS: GABAPENTIN 300MG CAPSULE PO SCH ×3 (08:53→18:28)
[2017-01-14] MEDS: SILVER SULFADIAZINE 1% CREAM 25GM TOP SCH ×2 (08:58→21:00)
[2017-01-14] MEDS: CARVEDILOL 3.125 MG TABLET PO SCH ×2 (09:00→18:28)
[2017-01-14] MEDS: ENOXAPARIN 30MG/0.3ML SYR SUBCUT SCH (18:25)
[2017-01-15] VITALS (12 sets, daily range): BP systolic 114–150; BP diastolic 70–94
[2017-01-15] MEDS: IPRATROPIUM/ALBUTEROL 0.5-3(2.5)MG/3ML NEB HHN SCH ×7 (00:03→23:53)
[2017-01-15 07:07] LABS: BASOPHILS % 0.2 % (0.0-2.0); EOSINOPHILS % 7.3 % (0.0-5.0); HEMATOCRIT. 27.4 % (36.0-48.0); HEMOGLOBIN. 8.8 g/dL (12.0-16.0); LYMPHOCYTES % 7.8 % (20.0-50.0); MEAN CORPUSCULAR HEMOGLOBIN 27.4 pg (28.0-32.0); MEAN CORPUSCULAR VOLUME 85.2 fL (81.0-99.0); MEAN PLATELET VOLUME 8.4 fl (7.4-10.4); MONOCYTES % 6.3 % (2.0-8.0); NEUTROPHILS % 78.4 % (40.0-76.0); PLATELET 220 x1000/uL (130-400); RED BLOOD CELL COUNT 3.21 mill/uL (4.2-5.4); RED CELL DISTRIBUTION WIDTH 19.4 % (11.6-14.6)
[2017-01-15] MEDS: FOLIC ACID/VITAMIN B COMP W-C TABLET PO SCH (08:22)
[2017-01-15] MEDS: ASPIRIN 81MG EC TABLET PO SCH (08:22)
[2017-01-15] MEDS: SEVELAMER CARBONATE 800 MG TABLET PO SCH ×3 (08:22→17:58)
[2017-01-15] MEDS: CLOPIDOGREL 75MG TABLET PO SCH (08:22)
[2017-01-15] MEDS: PREDNISONE 20MG TABLET PO SCH (08:24)
[2017-01-15] MEDS: LETAIRIS 10 MG TABLET XX SCH (08:24)
[2017-01-15] MEDS: CINACALCET HCL 90MG TABLET PO SCH (08:24)
[2017-01-15] MEDS: CARVEDILOL 3.125 MG TABLET PO SCH ×2 (08:24→16:47)
[2017-01-15] MEDS: GABAPENTIN 300MG CAPSULE PO SCH ×3 (08:24→17:58)
[2017-01-15] MEDS: SILVER SULFADIAZINE 1% CREAM 25GM TOP SCH ×2 (08:25→20:37)
[2017-01-15 12:32] LABS: NUCLEATED RED BLOOD CELLS 1 /100 WBC; PLATELET ESTIMATE NORMAL
[2017-01-15] MEDS: ONDANSETRON HCL 4MG/2ML VIAL IV PRN (14:26)
[2017-01-15] MEDS: ENOXAPARIN 30MG/0.3ML SYR SUBCUT SCH (17:13)
[2017-01-15] MEDS: MORPHINE SULFATE 2 MG/ML CPJ (NOT FOR IM USE) IV PRN (19:36)
[2017-01-16] VITALS (26 sets, daily range): BP systolic 96–183; BP diastolic 56–99
[2017-01-16] MEDS: IPRATROPIUM/ALBUTEROL 0.5-3(2.5)MG/3ML NEB HHN SCH ×4 (04:02→20:10)
[2017-01-16 06:27] LABS: BASOPHILS % 0.3 % (0.0-2.0); EOSINOPHILS % 4.7 % (0.0-5.0); HEMATOCRIT. 27.6 % (36.0-48.0); HEMOGLOBIN. 8.7 g/dL (12.0-16.0); LYMPHOCYTES % 8.5 % (20.0-50.0); MEAN CORPUSCULAR HEMOGLOBIN 27.3 pg (28.0-32.0); MEAN CORPUSCULAR VOLUME 86.2 fL (81.0-99.0); MEAN PLATELET VOLUME 7.8 fl (7.4-10.4); MONOCYTES % 8.5 % (2.0-8.0); PLATELET 205 x1000/uL (130-400)
[2017-01-16] MEDS: SEVELAMER CARBONATE 800 MG TABLET PO SCH ×3 (08:00→18:00)
[2017-01-16] MEDS: CARVEDILOL 3.125 MG TABLET PO SCH ×2 (08:16→17:00)
[2017-01-16] MEDS: LETAIRIS 10 MG TABLET XX SCH ×2 (08:17→14:39)
[2017-01-16] MEDS: PREDNISONE 20MG TABLET PO SCH ×2 (08:17→14:38)
[2017-01-16] MEDS: GABAPENTIN 300MG CAPSULE PO SCH ×3 (08:17→18:00)
[2017-01-16] MEDS: ASPIRIN 81MG EC TABLET PO SCH ×2 (08:17→14:38)
[2017-01-16] MEDS: FOLIC ACID/VITAMIN B COMP W-C TABLET PO SCH ×2 (08:17→14:38)
[2017-01-16] MEDS: CINACALCET HCL 90MG TABLET PO SCH ×2 (08:17→14:38)
[2017-01-16] MEDS: CLOPIDOGREL 75MG TABLET PO SCH ×2 (08:17→14:37)
[2017-01-16] MEDS: SILVER SULFADIAZINE 1% CREAM 25GM TOP SCH ×2 (08:28→21:00)
[2017-01-16] MEDS: ENOXAPARIN 30MG/0.3ML SYR SUBCUT SCH (18:00)
== END 2017-01-16 21:20 | disposition home health service (06) | DRG 252 ==
LOC: ER 13:35 → ENRESERV 15:24 → 5EST 15:53 → EDBEDREQ 15:56 → CANBEDREQ 15:59 → 5EST 17:05
PROVIDERS: ADMIT Internal Medicine Nephrology; ATTEND Internal Medicine Nephrology
PROC: 5A09457 Assistance with Respiratory Ventilation, 24-96 Consecutive Hours, Continuous Positive Airway Pressure (ICD-10-PCS; 2017-01-06)
PROC: B4101ZZ Fluoroscopy of Abdominal Aorta using Low Osmolar Contrast (ICD-10-PCS; 2017-01-11)
PROC: B41F1ZZ Fluoroscopy of Right Lower Extremity Arteries using Low Osmolar Contrast (ICD-10-PCS; 2017-01-11)
PROC: B41G1ZZ Fluoroscopy of Left Lower Extremity Arteries using Low Osmolar Contrast (ICD-10-PCS; 2017-01-11)
PROC: 041K09M Bypass Right Femoral Artery to Peroneal Artery with Autologous Venous Tissue, Open Approach (ICD-10-PCS; 2017-01-11)
PROC: 04CK0ZZ Extirpation of Matter from Right Femoral Artery, Open Approach (ICD-10-PCS; 2017-01-11)
PROC: 06BP0ZZ Excision of Right Saphenous Vein, Open Approach (ICD-10-PCS; principal; 2017-01-11 12:00)
PROC: 04WY0JZ Revision of Synthetic Substitute in Lower Artery, Open Approach (ICD-10-PCS; 2017-01-12)
PROC: 30233N1 Transfusion of Nonautologous Red Blood Cells into Peripheral Vein, Percutaneous Approach (ICD-10-PCS; 2017-01-12)
DX: I73.9 Peripheral vascular disease, unspecified (principal); J96.02 Acute respiratory failure with hypercapnia; E43 Unspecified severe protein-calorie malnutrition; I13.2 Hypertensive heart and chronic kidney disease with heart failure and with stage 5 chronic kidney disease, or end stage renal disease; J84.9 Interstitial pulmonary disease, unspecified; I27.2 Other secondary pulmonary hypertension; N18.6 End stage renal disease; Z99.81 Dependence on supplemental oxygen; E87.1 Hypo-osmolality and hyponatremia; J44.1 Chronic obstructive pulmonary disease with (acute) exacerbation; I50.9 Heart failure, unspecified; I70.291 Other atherosclerosis of native arteries of extremities, right leg; D64.9 Anemia, unspecified; Z99.2 Dependence on renal dialysis; L97.519 Non-pressure chronic ulcer of other part of right foot with unspecified severity; I70.8 Atherosclerosis of other arteries; Z95.5 Presence of coronary angioplasty implant and graft; I25.10 Atherosclerotic heart disease of native coronary artery without angina pectoris; E87.6 Hypokalemia; Z98.1 Arthrodesis status; E03.9 Hypothyroidism, unspecified; Z79.899 Other long term (current) drug therapy; Z79.02 Long term (current) use of antithrombotics/antiplatelets; Z79.82 Long term (current) use of aspirin; Z68.25 Body mass index [BMI] 25.0-25.9, adult
CPT/HCPCS: 36246; 36415; 36600; 71010; 71275; 73590; 75716; 76000; 80048; 80051; 80053; 80061; 82375; 82550; 82553; 82805; 83605; 83690; 83880; 84439; 84443; 84484; 85014; 85018; 85025; 85610; 85651; 85730; 86850; 86900; 86920; 87040; 93005; 93306; 93970; 93971; 94640; 94660; 96365; 96366; 96375; 97110; 97116; 97162; 97165; 97530; 99291; A4216; C1760; C1769; C1884; C1893; J0171; J0330; J0885; J1100; J1642; J1644; J1650; J2250; J2270; J2274; J2405; J2440; J2543; J2704; J2930; J3010; J3475; J3490; J7030; J7040; J7050; J7512; J7620; J7626; P9016; Q9967

== ENCOUNTER 2017-01-19 17:59 | Emergency (ER) | payer MEDICARE, MEDICAID ==
[~2017-01-19] VITALS: Ht 162.6 cm; Wt 55.0 kg
[~2017-01-19 17:59] MED LIST changes: -ALBU25PO2 INH; -AMI2 PO; -CALC667C4 PO; +GABA-531 PO; -IOHEXOL-350 100 ML BOTTLE ONE; +SILV20CR13 TP; -SODIUM CHLORIDE 0.9% 10ML VIAL ONE
[2017-01-19] MEDS ORDERED: METHYLPREDNISOLONE SOD SUCC 125 MG/2 ML VIAL IV ONE (19:15)
[2017-01-19] MEDS ORDERED: IPRATROPIUM/ALBUTEROL 0.5-3(2.5)MG/3ML NEB HHN ONE (19:15)
[2017-01-19 19:36] LABS: BASOPHILS % 0.7 % (0.0-2.0); EOSINOPHILS % 4.4 % (0.0-5.0); HEMOGLOBIN. 8.7 g/dL (12.0-16.0); MEAN CORPUSCULAR HEMOGLOBIN 26.7 pg (28.0-32.0); MEAN CORPUSCULAR VOLUME 85.6 fL (81.0-99.0); MEAN PLATELET VOLUME 7.6 fl (7.4-10.4); MONOCYTES % 8.4 % (2.0-8.0); NEUTROPHILS % 77.5 % (40.0-76.0); PLATELET 203 x1000/uL (130-400); RED BLOOD CELL COUNT 3.27 mill/uL (4.2-5.4); RED CELL DISTRIBUTION WIDTH 20.6 % (11.6-14.6)
[2017-01-19 19:41] LABS: INR 1.1; PARTIAL THROMBOPLASTIN TIME 29.9 sec (23.4-31.0); PROTHROMBIN TIME 11.2 sec (9.4-11.6)
[2017-01-19 19:47] LABS: CARBON DIOXIDE 33 mEq/L (21-32); CHLORIDE 100 mEq/L (98-107)
[2017-01-19 21:57] VITALS: BP 124/80
== END 2017-01-19 22:05 | disposition home or self-care (01) ==
LOC: ER 18:50
DX: Z48.00 Encounter for change or removal of nonsurgical wound dressing (principal); R06.02 Shortness of breath; I50.9 Heart failure, unspecified; I11.0 Hypertensive heart disease with heart failure; J44.9 Chronic obstructive pulmonary disease, unspecified; Z87.891 Personal history of nicotine dependence; Z79.82 Long term (current) use of aspirin
CPT/HCPCS: 36415; 80053; 85025; 85610; 85730; 94640; 96374; 99284; J2930; J7620

== ENCOUNTER 2017-01-23 13:58 | Emergency (ER) | payer MEDICARE, MEDICAID ==
[~2017-01-23] VITALS: Ht 162.6 cm; Wt 57.0 kg
[2017-01-23 15:48] LABS: HEMATOCRIT. 27.5 % (36.0-48.0); HEMOGLOBIN. 8.8 g/dL (12.0-16.0); MEAN CORPUSCULAR HEMOGLOBIN 26.5 pg (28.0-32.0); MEAN CORPUSCULAR VOLUME 82.5 fL (81.0-99.0); MEAN PLATELET VOLUME 7.3 fl (7.4-10.4); PLATELET 244 x1000/uL (130-400); RED BLOOD CELL COUNT 3.33 mill/uL (4.2-5.4); RED CELL DISTRIBUTION WIDTH 19.7 % (11.6-14.6)
[2017-01-23 15:52] LABS: CHLORIDE 95 mEq/L (98-107)
[2017-01-23 15:59] LABS: CARBON DIOXIDE 31 mEq/L (21-32)
[2017-01-23 16:22] LABS: PLATELET ESTIMATE NORMAL
[2017-01-23 16:55] VITALS: BP 92/55
== END 2017-01-23 17:11 | disposition home or self-care (01) ==
LOC: ER 15:00
DX: R06.00 Dyspnea, unspecified (principal); I12.0 Hypertensive chronic kidney disease with stage 5 chronic kidney disease or end stage renal disease; N18.6 End stage renal disease; I50.9 Heart failure, unspecified; J98.11 Atelectasis; I51.7 Cardiomegaly; J44.9 Chronic obstructive pulmonary disease, unspecified; Z99.2 Dependence on renal dialysis; Z79.82 Long term (current) use of aspirin
CPT/HCPCS: 36415; 71010; 80053; 85025; 93005; 99285

== ENCOUNTER 2017-02-27 12:56 | Emergency (ER) | payer MEDICARE, MEDICAID ==
[~2017-02-27] VITALS: Ht 162.6 cm; Wt 64.0 kg
[2017-02-27 13:00] VITALS: BP 115/69
== END 2017-02-27 16:07 | disposition home or self-care (01) ==
LOC: ER 13:40
DX: R06.00 Dyspnea, unspecified (principal); I13.2 Hypertensive heart and chronic kidney disease with heart failure and with stage 5 chronic kidney disease, or end stage renal disease; I50.9 Heart failure, unspecified; N18.6 End stage renal disease; J44.9 Chronic obstructive pulmonary disease, unspecified; Z99.2 Dependence on renal dialysis; Z79.82 Long term (current) use of aspirin; Z79.899 Other long term (current) drug therapy
CPT/HCPCS: 99283

== ENCOUNTER 2017-03-06 02:00 | Inpatient (IN) | payer MEDICARE, MEDICAID ==
[2017-03-06] VITALS (80 sets, daily range): BP systolic 75–136; BP diastolic 28–91
[~2017-03-06] VITALS: Ht 162.6 cm; Wt 53.6 kg
[2017-03-06] MEDS ORDERED: ALBUTEROL (0.083%) 2.5MG/3ML NEB HHN STA (02:03)
[2017-03-06] MEDS ORDERED: IPRATROPIUM BROMIDE (0.02%) 0.5MG/2.5ML NEB HHN STA (02:03)
[2017-03-06] MEDS ORDERED: MAGNESIUM 2 G PREMIX 50 ML IV ONE (02:15)
[2017-03-06] MEDS ORDERED: SUCCINYLCHOLINE CHLORIDE 200MG/10ML VIAL IV ONE ×2 (02:15→06:00)
[2017-03-06] MEDS ORDERED: ETOMIDATE 2MG/ML 10ML VIAL IV ONE ×2 (02:15→06:00)
[2017-03-06] MEDS ORDERED: PROPOFOL 10MG/ML 100ML 100 ML IV ONE ×2 (02:15→04:00)
[2017-03-06 02:56] LABS: BG BASE EXCESS -1.5 mmol/L (-2.0-2.0); BG CARBOXYHEMOGLOBIN 0.8 % (0.5-1.5); BG DEOXYHEMOGLOBIN 4.8 % (0.0-5.0); BG FRACTION INSPIRED OXYGEN 50; BG HCO3 ACT 28.1 mmol/L (22.0-26.0); BG METHEMOGLOBIN 0.3 % (0.0-1.5); BG OXYGEN SATURATION 95.1 % (92.0-98.5); BG OXYHEMOGLOBIN 94.1 % (94.0-97.0); BG PCO2 76.9 mmHg (35.0-45.0); BG SAMPLE SITE RIGHT BRACHIAL; BG TIDAL VOLUME(mL) 400 mL; BG TOTAL HEMOGLOBIN 10.6 g/dL (12.0-18.0); BG VENT MODE VENT - A/C; BG VENT RATE 14 set
[2017-03-06 02:58] LABS: BASOPHILS % 0.9 % (0.0-2.0); EOSINOPHILS % 3.4 % (0.0-5.0); HEMATOCRIT. 31.3 % (36.0-48.0); HEMOGLOBIN. 9.7 g/dL (12.0-16.0); LYMPHOCYTES % 9.8 % (20.0-50.0); MEAN CORPUSCULAR HEMOGLOBIN 25.4 pg (28.0-32.0); MEAN CORPUSCULAR VOLUME 82.3 fL (81.0-99.0); MEAN PLATELET VOLUME 7.7 fl (7.4-10.4); MONOCYTES % 4.4 % (2.0-8.0); NEUTROPHILS % 81.5 % (40.0-76.0); PLATELET 250 x1000/uL (130-400)
[2017-03-06 03:00] LABS: INR 1.1
[2017-03-06 03:16] LABS: CARBON DIOXIDE 25 mEq/L (21-32); CHLORIDE 99 mEq/L (98-107); TROPONIN I 0.04 ng/mL (0.00-0.04)
[2017-03-06] MEDS ORDERED: MIDAZOLAM HCL 50 MG in DEXTROSE 5% WATER 40 ML IV ONE (04:45)
[2017-03-06] MEDS ORDERED: MIDAZOLAM HCL 50 MG in DEXTROSE 5% WATER 40 ML IV NR (05:00)
[2017-03-06] MEDS ORDERED: DOPAMINE 400MG PREMIX 250 ML IV PRN (07:00)
[2017-03-06] MEDS ORDERED: PIPERACILLIN/TAZ 3.375G PREMIX 50 ML IV SCH ×2 (07:00→08:00)
[2017-03-06] MEDS ORDERED: ALBUTEROL (0.083%) 2.5MG/3ML NEB HHN SCH (08:00)
[2017-03-06] MEDS ORDERED: ONDANSETRON HCL 4MG/2ML VIAL IV PRN (08:00)
[2017-03-06] MEDS ORDERED: ENOXAPARIN 40MG/0.4ML SYR SUBCUT SCH (08:00)
[2017-03-06] MEDS ORDERED: ACETAMINOPHEN 650MG SUPP PR PRN (08:00)
[2017-03-06] MEDS ORDERED: DEXT 5%/0.45% NACL 1000ML 1,000 ML IV SCH (08:15)
[2017-03-06] MEDS: PIPERACILLIN/TAZ 2.25G PREMIX 50 ML IV SCH ×3 (08:47→22:40)
[2017-03-06] MEDS: PANTOPRAZOLE SODIUM 40 MG/VIAL IV SCH (08:58)
[2017-03-06] MEDS ORDERED: VANCOMYCIN 1 G PREMIX 200 ML IV SCH (09:00)
[2017-03-06 09:04] LABS: BG BASE EXCESS 1.2 mmol/L (-2.0-2.0); BG CARBOXYHEMOGLOBIN 0.3 % (0.5-1.5); BG DEOXYHEMOGLOBIN 6.8 % (0.0-5.0); BG FRACTION INSPIRED OXYGEN 50; BG HCO3 ACT 28.3 mmol/L (22.0-26.0); BG METHEMOGLOBIN 0.1 % (0.0-1.5); BG OXYGEN SATURATION 93.2 % (92.0-98.5); BG OXYHEMOGLOBIN 92.8 % (94.0-97.0); BG PCO2 58.2 mmHg (35.0-45.0); BG PH 7.304 (7.350-7.450); BG PO2 73.8 mmHg (75.0-100.0); BG SAMPLE SITE RIGHT RADIAL; BG TIDAL VOLUME(mL) 400 mL; BG TOTAL HEMOGLOBIN 9.3 g/dL (12.0-18.0); BG VENT MODE VENT - A/C; BG VENT RATE 18 set
[2017-03-06] MEDS ORDERED: LIDOCAINE HCL 1% 20ML VIAL (Pyxis) INJ ONE (09:07)
[2017-03-06] MEDS ORDERED: SODIUM BICARBONATE 4% (2.4MEQ) 5ML VIAL IV ONE (09:08)
[2017-03-06] MEDS: PROPOFOL 10MG/ML 100ML 100 ML IV PRN ×4 (10:08→23:48)
[2017-03-06] MEDS ORDERED: PHENYLEPHRINE 40 MG in DEXT 5% WATER 246 ML IV PRN (11:00)
[2017-03-06] MEDS: CLOPIDOGREL 75MG TABLET PO SCH (11:13)
[2017-03-06] MEDS: ASPIRIN 81MG TABLET PO SCH (11:14)
[2017-03-06] MEDS: ENOXAPARIN 30MG/0.3ML SYR SUBCUT SCH (11:14)
[2017-03-06] MEDS ORDERED: VANCOMYCIN HCL 1 GM/VIAL PO SCH (12:00)
[2017-03-06] MEDS: IPRATROPIUM/ALBUTEROL 0.5-3(2.5)MG/3ML NEB INH SCH (13:26)
[2017-03-06] MEDS: SILDENAFIL CITRATE 20MG TABLET NG SCH ×3 (13:37→22:41)
[2017-03-06 15:22] LABS: CREATINE KINASE MB FRACTION 3.5 ng/mL (0.5-3.6); TROPONIN I 0.14 ng/mL (0.00-0.04)
[2017-03-06 15:29] LABS: HDL CHOLESTEROL 112 mg/dL (40-59); LDL CHOLESTEROL 54 mg/dL (5-100); T4 FREE 1.44 ng/dL (0.76-1.46)
[2017-03-06] MEDS: CARVEDILOL 3.125 MG TABLET PO SCH (17:37)
[2017-03-06 17:55] LABS: BG CARBOXYHEMOGLOBIN 0.4 % (0.5-1.5); BG DEOXYHEMOGLOBIN 2.8 % (0.0-5.0); BG FRACTION INSPIRED OXYGEN 50; BG HCO3 ACT 26.8 mmol/L (22.0-26.0); BG METHEMOGLOBIN 0.5 % (0.0-1.5); BG OXYGEN SATURATION 97.2 % (92.0-98.5); BG OXYHEMOGLOBIN 96.3 % (94.0-97.0); BG PCO2 48.9 mmHg (35.0-45.0); BG PH 7.357 (7.350-7.450); BG PO2 100.5 mmHg (75.0-100.0); BG SAMPLE SITE RIGHT RADIAL; BG TIDAL VOLUME(mL) 400 mL; BG TOTAL HEMOGLOBIN 9.5 g/dL (12.0-18.0); BG VENT MODE VENT - A/C; BG VENT RATE 18 set
[2017-03-06] MEDS: FENTANYL CITRATE/PF 500 MCG in SODIUM CHLORIDE 0.9% 40 ML IV PRN (20:00)
[2017-03-07] VITALS (101 sets, daily range): BP systolic 86–141; BP diastolic 37–101
[2017-03-07 00:08] LABS: CREATINE KINASE MB FRACTION 4.5 ng/mL (0.5-3.6); TROPONIN I 0.19 ng/mL (0.00-0.04)
[2017-03-07] MEDS: IPRATROPIUM/ALBUTEROL 0.5-3(2.5)MG/3ML NEB INH SCH ×4 (02:16→20:34)
[2017-03-07] MEDS: PROPOFOL 10MG/ML 100ML 100 ML IV PRN ×4 (04:15→18:37)
[2017-03-07] MEDS: SILDENAFIL CITRATE 20MG TABLET NG SCH ×3 (06:00→22:15)
[2017-03-07 06:07] LABS: BASOPHILS % 1.4 % (0.0-2.0); EOSINOPHILS % 7.2 % (0.0-5.0); HEMATOCRIT. 27.7 % (36.0-48.0); HEMOGLOBIN. 8.6 g/dL (12.0-16.0); LYMPHOCYTES % 14.1 % (20.0-50.0); MEAN CORPUSCULAR HEMOGLOBIN 25.6 pg (28.0-32.0); MEAN CORPUSCULAR VOLUME 82.6 fL (81.0-99.0); MEAN PLATELET VOLUME 7.8 fl (7.4-10.4); MONOCYTES % 10.1 % (2.0-8.0); NEUTROPHILS % 67.2 % (40.0-76.0); PLATELET 161 x1000/uL (130-400); RED BLOOD CELL COUNT 3.36 mill/uL (4.2-5.4); RED CELL DISTRIBUTION WIDTH 21.1 % (11.6-14.6)
[2017-03-07] MEDS: PIPERACILLIN/TAZ 2.25G PREMIX 50 ML IV SCH ×3 (06:23→22:14)
[2017-03-07] MEDS: FENTANYL CITRATE/PF 500 MCG in SODIUM CHLORIDE 0.9% 40 ML IV PRN ×2 (06:27→17:47)
[2017-03-07 07:00] LABS: CREATINE KINASE MB FRACTION 4.1 ng/mL (0.5-3.6)
[2017-03-07 07:00] LABS: CARBON DIOXIDE 25 mEq/L (21-32); CHLORIDE 101 mEq/L (98-107)
[2017-03-07 07:27] LABS: BG CARBOXYHEMOGLOBIN 0.2 % (0.5-1.5); BG DEOXYHEMOGLOBIN 2.8 % (0.0-5.0); BG HCO3 ACT 26.3 mmol/L (22.0-26.0); BG METHEMOGLOBIN 0.3 % (0.0-1.5); BG OXYGEN SATURATION 97.2 % (92.0-98.5); BG OXYHEMOGLOBIN 96.7 % (94.0-97.0); BG PCO2 51.7 mmHg (35.0-45.0); BG PH 7.325 (7.350-7.450); BG PO2 101.1 mmHg (75.0-100.0); BG SAMPLE SITE RIGHT BRACHIAL; BG TIDAL VOLUME(mL) 400 mL; BG TOTAL HEMOGLOBIN 9.4 g/dL (12.0-18.0); BG VENT MODE VENT - A/C; BG VENT RATE 16 set
[2017-03-07] MEDS: BUDESONIDE 0.5MG/2ML NEB HHN SCH ×2 (08:12→20:34)
[2017-03-07] MEDS: PANTOPRAZOLE SODIUM 40 MG/VIAL IV SCH (08:39)
[2017-03-07] MEDS: ASPIRIN 81MG TABLET PO SCH (08:39)
[2017-03-07] MEDS: ENOXAPARIN 30MG/0.3ML SYR SUBCUT SCH (08:39)
[2017-03-07] MEDS: CLOPIDOGREL 75MG TABLET PO SCH (08:40)
[2017-03-07] MEDS: CARVEDILOL 3.125 MG TABLET PO SCH ×2 (08:40→17:04)
[2017-03-07] MEDS ORDERED: ASPIRIN 81MG TABLET PO SCH (09:00)
[2017-03-07] MEDS ORDERED: VANCOMYCIN 500 MG PREMIX 100 ML IV NR (12:00)
[2017-03-08] VITALS (78 sets, daily range): BP systolic 80–175; BP diastolic 44–117
[2017-03-08] MEDS: PROPOFOL 10MG/ML 100ML 100 ML IV PRN ×2 (00:16→06:10)
[2017-03-08] MEDS: FENTANYL CITRATE/PF 500 MCG in SODIUM CHLORIDE 0.9% 40 ML IV PRN ×4 (02:09→21:33)
[2017-03-08] MEDS: IPRATROPIUM/ALBUTEROL 0.5-3(2.5)MG/3ML NEB INH SCH ×2 (02:27→09:14)
[2017-03-08] MEDS: SILDENAFIL CITRATE 20MG TABLET NG SCH ×3 (05:36→21:32)
[2017-03-08] MEDS: PIPERACILLIN/TAZ 2.25G PREMIX 50 ML IV SCH ×3 (05:38→21:32)
[2017-03-08 05:49] LABS: BASOPHILS % 1.1 % (0.0-2.0); EOSINOPHILS % 8.7 % (0.0-5.0); HEMATOCRIT. 30.7 % (36.0-48.0); HEMOGLOBIN. 9.6 g/dL (12.0-16.0); LYMPHOCYTES % 11.8 % (20.0-50.0); MEAN CORPUSCULAR HEMOGLOBIN 25.7 pg (28.0-32.0); MEAN CORPUSCULAR VOLUME 81.7 fL (81.0-99.0); MONOCYTES % 8.3 % (2.0-8.0); NEUTROPHILS % 70.1 % (40.0-76.0); PLATELET 175 x1000/uL (130-400); RED BLOOD CELL COUNT 3.75 mill/uL (4.2-5.4); RED CELL DISTRIBUTION WIDTH 19.9 % (11.6-14.6)
[2017-03-08] MEDS: CARVEDILOL 3.125 MG TABLET PO SCH ×2 (08:38→17:00)
[2017-03-08 08:43] LABS: BG BASE EXCESS -2.1 mmol/L (-2.0-2.0); BG CARBOXYHEMOGLOBIN 0.8 % (0.5-1.5); BG DEOXYHEMOGLOBIN 6.3 % (0.0-5.0); BG FRACTION INSPIRED OXYGEN 35; BG HCO3 ACT 24.3 mmol/L (22.0-26.0); BG METHEMOGLOBIN 0.4 % (0.0-1.5); BG OXYGEN SATURATION 93.6 % (92.0-98.5); BG OXYHEMOGLOBIN 92.5 % (94.0-97.0); BG PCO2 48.5 mmHg (35.0-45.0); BG PH 7.317 (7.350-7.450); BG PO2 70.9 mmHg (75.0-100.0); BG SAMPLE SITE RIGHT BRACHIAL; BG TIDAL VOLUME(mL) 400 mL; BG TOTAL HEMOGLOBIN 10.8 g/dL (12.0-18.0); BG VENT MODE VENT - A/C; BG VENT RATE 16 set
[2017-03-08] MEDS: PANTOPRAZOLE SODIUM 40 MG/VIAL IV SCH (08:49)
[2017-03-08] MEDS: ASPIRIN 81MG TABLET PO SCH (08:49)
[2017-03-08] MEDS: CLOPIDOGREL 75MG TABLET PO SCH (08:49)
[2017-03-08] MEDS: ENOXAPARIN 30MG/0.3ML SYR SUBCUT SCH (08:50)
[2017-03-08] MEDS: BUDESONIDE 0.5MG/2ML NEB HHN SCH ×2 (09:14→19:51)
[2017-03-08] MEDS: NOREPINEPHRINE 8 MG in DEXT 5% WATER 242 ML IV PRN (09:43)
[2017-03-08] MEDS ORDERED: ALBUMIN HUMAN 12.5GM/50ML (25%) IV SCH (10:00)
[2017-03-08] MEDS ORDERED: IPRATROPIUM/ALBUTEROL 0.5-3(2.5)MG/3ML NEB HHN PRN (11:30)
[2017-03-08] MEDS ORDERED: PROPOFOL 10MG/ML 100ML 100 ML IV PRN (12:00)
[2017-03-08] MEDS ORDERED: VANCOMYCIN 1 G PREMIX 200 ML IV NR (13:00)
[2017-03-08] MEDS: IPRATROPIUM/ALBUTEROL 0.5-3(2.5)MG/3ML NEB HHN SCH ×3 (13:06→19:51)
[2017-03-08 15:17] LABS: BG BASE EXCESS 0.2 mmol/L (-2.0-2.0); BG CARBOXYHEMOGLOBIN 0.8 % (0.5-1.5); BG FRACTION INSPIRED OXYGEN 35; BG HCO3 ACT 25.8 mmol/L (22.0-26.0); BG METHEMOGLOBIN 0.3 % (0.0-1.5); BG OXYGEN SATURATION 90.9 % (92.0-98.5); BG OXYHEMOGLOBIN 89.9 % (94.0-97.0); BG PCO2 45.7 mmHg (35.0-45.0); BG PH 7.369 (7.350-7.450); BG PO2 62.2 mmHg (75.0-100.0); BG SAMPLE SITE RIGHT BRACHIAL; BG TIDAL VOLUME(mL) 400 mL; BG TOTAL HEMOGLOBIN 10.5 g/dL (12.0-18.0); BG VENT MODE VENT - A/C; BG VENT RATE 16 set
[2017-03-08] MEDS: MIDAZOLAM HCL 100 MG in DEXT 5% WATER 80 ML IV PRN (15:35)
[2017-03-08] MEDS: MORPHINE SULFATE 10 MG/ML CPJ IV PRN (21:32)
[2017-03-09] VITALS (71 sets, daily range): BP systolic 83–160; BP diastolic 47–109
[2017-03-09] MEDS: MIDAZOLAM HCL 100 MG in DEXT 5% WATER 80 ML IV PRN (01:51)
[2017-03-09] MEDS: FENTANYL CITRATE/PF 500 MCG in SODIUM CHLORIDE 0.9% 40 ML IV PRN ×4 (01:52→23:30)
[2017-03-09] MEDS: IPRATROPIUM/ALBUTEROL 0.5-3(2.5)MG/3ML NEB HHN SCH ×5 (01:58→20:24)
[2017-03-09] MEDS: SILDENAFIL CITRATE 20MG TABLET NG SCH ×3 (05:39→22:23)
[2017-03-09] MEDS: PIPERACILLIN/TAZ 2.25G PREMIX 50 ML IV SCH ×3 (05:39→22:24)
[2017-03-09 07:39] LABS: BG BASE EXCESS 2.2 mmol/L (-2.0-2.0); BG CARBOXYHEMOGLOBIN 0.8 % (0.5-1.5); BG DEOXYHEMOGLOBIN 4.1 % (0.0-5.0); BG FRACTION INSPIRED OXYGEN 40; BG HCO3 ACT 28.8 mmol/L (22.0-26.0); BG METHEMOGLOBIN 0.7 % (0.0-1.5); BG OXYGEN SATURATION 95.8 % (92.0-98.5); BG OXYHEMOGLOBIN 94.4 % (94.0-97.0); BG PCO2 55.2 mmHg (35.0-45.0); BG PH 7.336 (7.350-7.450); BG PO2 84.1 mmHg (75.0-100.0); BG SAMPLE SITE RIGHT BRACHIAL; BG TIDAL VOLUME(mL) 400 mL; BG TOTAL HEMOGLOBIN 10.9 g/dL (12.0-18.0); BG VENT MODE VENT - A/C; BG VENT RATE 16 set
[2017-03-09] MEDS: BUDESONIDE 0.5MG/2ML NEB HHN SCH ×2 (07:40→20:25)
[2017-03-09] MEDS ORDERED: CARVEDILOL 3.125 MG TABLET PO ONE (09:00)
[2017-03-09] MEDS ORDERED: CARVEDILOL 6.25 MG TABLET PO SCH (09:00)
[2017-03-09] MEDS: CLOPIDOGREL 75MG TABLET PO SCH (09:10)
[2017-03-09] MEDS: PANTOPRAZOLE SODIUM 40 MG/VIAL IV SCH (09:10)
[2017-03-09] MEDS: ASPIRIN 81MG TABLET PO SCH (09:10)
[2017-03-09] MEDS: ENOXAPARIN 30MG/0.3ML SYR SUBCUT SCH (09:11)
[2017-03-09] MEDS ORDERED: METOPROLOL TARTRATE 50MG TABLET PO SCH (09:15)
[2017-03-09 09:49] LABS: BASOPHILS % 1.9 % (0.0-2.0); EOSINOPHILS % 5.4 % (0.0-5.0); HEMATOCRIT. 32.2 % (36.0-48.0); HEMOGLOBIN. 10.2 g/dL (12.0-16.0); LYMPHOCYTES % 10.8 % (20.0-50.0); MEAN CORPUSCULAR HEMOGLOBIN 25.7 pg (28.0-32.0); MEAN CORPUSCULAR VOLUME 80.8 fL (81.0-99.0); MEAN PLATELET VOLUME 7.8 fl (7.4-10.4); MONOCYTES % 9.8 % (2.0-8.0); NEUTROPHILS % 72.1 % (40.0-76.0); PLATELET 168 x1000/uL (130-400); RED BLOOD CELL COUNT 3.98 mill/uL (4.2-5.4)
[2017-03-09] MEDS ORDERED: SODIUM CHLORIDE 0.9% 500 ML IV ONE (13:00)
[2017-03-09] MEDS: NOREPINEPHRINE 8 MG in DEXT 5% WATER 242 ML IV PRN (13:08)
[2017-03-09 16:09] LABS: T4 FREE 1.23 ng/dL (0.76-1.46)
[2017-03-10] VITALS (58 sets, daily range): BP systolic 91–161; BP diastolic 54–118
[2017-03-10] MEDS: IPRATROPIUM/ALBUTEROL 0.5-3(2.5)MG/3ML NEB HHN SCH ×6 (00:33→20:25)
[2017-03-10 05:44] LABS: BASOPHILS % 1.3 % (0.0-2.0); EOSINOPHILS % 5.6 % (0.0-5.0); HEMATOCRIT. 32.4 % (36.0-48.0); HEMOGLOBIN. 10.3 g/dL (12.0-16.0); LYMPHOCYTES % 11.6 % (20.0-50.0); MEAN CORPUSCULAR HEMOGLOBIN 25.6 pg (28.0-32.0); MEAN CORPUSCULAR VOLUME 80.8 fL (81.0-99.0); MEAN PLATELET VOLUME 7.9 fl (7.4-10.4); MONOCYTES % 10.7 % (2.0-8.0); NEUTROPHILS % 70.8 % (40.0-76.0); PLATELET 172 x1000/uL (130-400); RED CELL DISTRIBUTION WIDTH 20.1 % (11.6-14.6)
[2017-03-10] MEDS: MIDAZOLAM HCL 100 MG in DEXT 5% WATER 80 ML IV PRN ×2 (08:41→08:45)
[2017-03-10] MEDS: PIPERACILLIN/TAZ 2.25G PREMIX 50 ML IV SCH ×3 (09:41→21:05)
[2017-03-10] MEDS: PANTOPRAZOLE SODIUM 40 MG/VIAL IV SCH (09:41)
[2017-03-10] MEDS: SILDENAFIL CITRATE 20MG TABLET NG SCH ×3 (09:42→21:07)
[2017-03-10] MEDS: ASPIRIN 81MG TABLET PO SCH (09:42)
[2017-03-10] MEDS: CLOPIDOGREL 75MG TABLET PO SCH (09:43)
[2017-03-10] MEDS: FENTANYL CITRATE/PF 500 MCG in SODIUM CHLORIDE 0.9% 40 ML IV PRN (10:09)
[2017-03-10] MEDS: ENOXAPARIN 30MG/0.3ML SYR SUBCUT SCH (11:11)
[2017-03-10] MEDS: METOCLOPRAMIDE HCL 10MG/2ML VIAL IV SCH ×2 (11:25→18:10)
[2017-03-10 12:07] LABS: BG BASE EXCESS 1.5 mmol/L (-2.0-2.0); BG CARBOXYHEMOGLOBIN 0.9 % (0.5-1.5); BG DEOXYHEMOGLOBIN 5.9 % (0.0-5.0); BG FRACTION INSPIRED OXYGEN 40; BG METHEMOGLOBIN 0.3 % (0.0-1.5); BG OXYHEMOGLOBIN 92.9 % (94.0-97.0); BG PCO2 40.8 mmHg (35.0-45.0); BG PH 7.423 (7.350-7.450); BG PO2 69.7 mmHg (75.0-100.0); BG PRESSURE SUPPORT 8; BG SAMPLE SITE RIGHT RADIAL; BG TOTAL HEMOGLOBIN 11.4 g/dL (12.0-18.0); BG VENT MODE VENT - CPAP
[2017-03-10] MEDS: MORPHINE SULFATE 10 MG/ML CPJ IV PRN ×3 (12:32→22:04)
[2017-03-10] MEDS ORDERED: RACEPINEPHRINE 2.25% 0.5ML NEB VIAL HHN NR ×2 (13:15→14:00)
[2017-03-10] MEDS ORDERED: RACEPINEPHRINE 2.25% 0.5ML NEB VIAL HHN PRN (13:45)
[2017-03-10] MEDS ORDERED: METOPROLOL TARTRATE 25MG TABLET PO SCH (14:00)
[2017-03-10] MEDS: LORAZEPAM 2MG/ML CPJ IV PRN ×2 (15:04→21:08)
[2017-03-10 15:17] LABS: BG BASE EXCESS -0.1 mmol/L (-2.0-2.0); BG BILEVEL POS AIRWAY PRESSURE ST=15/5; BG CARBOXYHEMOGLOBIN 0.7 % (0.5-1.5); BG DEOXYHEMOGLOBIN 4.3 % (0.0-5.0); BG FRACTION INSPIRED OXYGEN 40; BG HCO3 ACT 25.3 mmol/L (22.0-26.0); BG METHEMOGLOBIN 0.3 % (0.0-1.5); BG OXYGEN SATURATION 95.7 % (92.0-98.5); BG OXYHEMOGLOBIN 94.7 % (94.0-97.0); BG PCO2 44.7 mmHg (35.0-45.0); BG PH 7.371 (7.350-7.450); BG PO2 84.3 mmHg (75.0-100.0); BG PRESSURE SUPPORT 10; BG SAMPLE SITE RIGHT RADIAL; BG TOTAL HEMOGLOBIN 11.2 g/dL (12.0-18.0); BG VENT MODE MASK - BIPAP; BG VENT RATE 14 set
[2017-03-10] MEDS: CLONIDINE 0.1MG TABLET PO PRN (15:42)
[2017-03-10] MEDS ORDERED: FLUCONAZOLE 200MG/100ML PREMIX IV ONE (16:15)
[2017-03-10] MEDS ORDERED: FLUCONAZOLE 200 MG/100ML BAG 100 ML IV SCH (18:00)
[2017-03-10] MEDS: METOPROLOL TARTRATE 25MG TABLET PO SCH (21:08)
[2017-03-11] VITALS (34 sets, daily range): BP systolic 99–167; BP diastolic 68–111
[2017-03-11] MEDS: IPRATROPIUM/ALBUTEROL 0.5-3(2.5)MG/3ML NEB HHN SCH ×6 (01:33→19:57)
[2017-03-11] MEDS: METOCLOPRAMIDE HCL 10MG/2ML VIAL IV SCH ×3 (01:54→17:28)
[2017-03-11] MEDS: MORPHINE SULFATE 10 MG/ML CPJ IV PRN (02:52)
[2017-03-11] MEDS: LORAZEPAM 2MG/ML CPJ IV PRN ×3 (04:33→19:43)
[2017-03-11 05:40] LABS: BASOPHILS % 1.4 % (0.0-2.0); EOSINOPHILS % 5.9 % (0.0-5.0); HEMATOCRIT. 31.9 % (36.0-48.0); LYMPHOCYTES % 14.6 % (20.0-50.0); MEAN CORPUSCULAR HEMOGLOBIN 25.2 pg (28.0-32.0); MEAN CORPUSCULAR VOLUME 80.3 fL (81.0-99.0); MONOCYTES % 11.7 % (2.0-8.0); NEUTROPHILS % 66.4 % (40.0-76.0); PLATELET 173 x1000/uL (130-400); RED BLOOD CELL COUNT 3.97 mill/uL (4.2-5.4); RED CELL DISTRIBUTION WIDTH 19.9 % (11.6-14.6)
[2017-03-11] MEDS: PIPERACILLIN/TAZ 2.25G PREMIX 50 ML IV SCH ×3 (06:03→22:24)
[2017-03-11] MEDS: SILDENAFIL CITRATE 20MG TABLET NG SCH ×3 (06:04→22:23)
[2017-03-11 07:20] LABS: BG BASE EXCESS 0.5 mmol/L (-2.0-2.0); BG BILEVEL POS AIRWAY PRESSURE 15/5; BG CARBOXYHEMOGLOBIN 0.3 % (0.5-1.5); BG DEOXYHEMOGLOBIN 3.3 % (0.0-5.0); BG FRACTION INSPIRED OXYGEN 40; BG HCO3 ACT 26.1 mmol/L (22.0-26.0); BG METHEMOGLOBIN 0.9 % (0.0-1.5); BG OXYGEN SATURATION 96.7 % (92.0-98.5); BG OXYHEMOGLOBIN 95.5 % (94.0-97.0); BG PH 7.371 (7.350-7.450); BG PO2 96.6 mmHg (75.0-100.0); BG SAMPLE SITE RIGHT BRACHIAL; BG TOTAL HEMOGLOBIN 10.7 g/dL (12.0-18.0); BG VENT MODE MASK - BIPAP
[2017-03-11] MEDS ORDERED: DEXTROSE 50% WATER 50ML SYRINGE IV PRN (07:30)
[2017-03-11] MEDS: PANTOPRAZOLE SODIUM 40 MG/VIAL IV SCH (10:16)
[2017-03-11] MEDS: METOPROLOL TARTRATE 25MG TABLET PO SCH ×2 (10:16→22:23)
[2017-03-11] MEDS: CLOPIDOGREL 75MG TABLET PO SCH (10:16)
[2017-03-11] MEDS: ENOXAPARIN 30MG/0.3ML SYR SUBCUT SCH (10:16)
[2017-03-11] MEDS: ASPIRIN 81MG TABLET PO SCH (10:17)
[2017-03-11] MEDS: MORPHINE SULFATE 4 MG/ML CPJ (NOT FOR IM USE) IV PRN ×3 (11:23→22:23)
[2017-03-11] MEDS ORDERED: SODIUM CHLORIDE 0.45% 1,000 ML IV SCH (12:00)
[2017-03-11] MEDS: CLONIDINE 0.1MG TABLET PO PRN (13:02)
[2017-03-11] MEDS: DEXT 5%/0.45% NACL 1000ML 1,000 ML IV SCH (13:02)
[2017-03-11] MEDS ORDERED: VANCOMYCIN 750 MG PREMIX 150 ML IV SCH (14:00)
[2017-03-12] VITALS (30 sets, daily range): BP systolic 113–164; BP diastolic 55–112
[2017-03-12] MEDS: IPRATROPIUM/ALBUTEROL 0.5-3(2.5)MG/3ML NEB HHN SCH ×6 (00:01→20:11)
[2017-03-12] MEDS: METOCLOPRAMIDE HCL 10MG/2ML VIAL IV SCH ×3 (01:18→17:56)
[2017-03-12] MEDS: MORPHINE SULFATE 4 MG/ML CPJ (NOT FOR IM USE) IV PRN (04:07)
[2017-03-12 05:58] LABS: BASOPHILS % 1.4 % (0.0-2.0); EOSINOPHILS % 9.7 % (0.0-5.0); HEMATOCRIT. 30.7 % (36.0-48.0); HEMOGLOBIN. 9.7 g/dL (12.0-16.0); LYMPHOCYTES % 11.3 % (20.0-50.0); MEAN CORPUSCULAR HEMOGLOBIN 25.4 pg (28.0-32.0); MEAN CORPUSCULAR VOLUME 80.3 fL (81.0-99.0); MEAN PLATELET VOLUME 8.2 fl (7.4-10.4); MONOCYTES % 12.9 % (2.0-8.0); NEUTROPHILS % 64.7 % (40.0-76.0); PLATELET 187 x1000/uL (130-400); RED BLOOD CELL COUNT 3.83 mill/uL (4.2-5.4); RED CELL DISTRIBUTION WIDTH 19.7 % (11.6-14.6)
[2017-03-12 06:24] LABS: PHOSPHORUS 7.8 mg/dL (2.5-4.9)
[2017-03-12] MEDS: PIPERACILLIN/TAZ 2.25G PREMIX 50 ML IV SCH ×3 (06:24→21:54)
[2017-03-12] MEDS: SILDENAFIL CITRATE 20MG TABLET NG SCH ×3 (06:24→21:54)
[2017-03-12 07:29] LABS: BG BASE EXCESS -1.8 mmol/L (-2.0-2.0); BG BILEVEL POS AIRWAY PRESSURE 15/5; BG CARBOXYHEMOGLOBIN 0.7 % (0.5-1.5); BG FRACTION INSPIRED OXYGEN 40; BG HCO3 ACT 24.3 mmol/L (22.0-26.0); BG METHEMOGLOBIN 0.3 % (0.0-1.5); BG PCO2 47.2 mmHg (35.0-45.0); BG PH 7.329 (7.350-7.450); BG PO2 89.1 mmHg (75.0-100.0); BG SAMPLE SITE RIGHT BRACHIAL; BG TOTAL HEMOGLOBIN 10.8 g/dL (12.0-18.0); BG VENT MODE MASK - BIPAP
[2017-03-12] MEDS: METOPROLOL TARTRATE 25MG TABLET PO SCH ×3 (08:55→21:09)
[2017-03-12] MEDS: PANTOPRAZOLE SODIUM 40 MG/VIAL IV SCH (09:33)
[2017-03-12] MEDS: ENOXAPARIN 30MG/0.3ML SYR SUBCUT SCH (12:16)
[2017-03-12] MEDS: LANTHANUM CARBONATE 500MG CHEW TABLET PO SCH ×3 (12:16→18:58)
[2017-03-12] MEDS: CLOPIDOGREL 75MG TABLET PO SCH (12:16)
[2017-03-12] MEDS: DEXT 5%/0.45% NACL 1000ML 1,000 ML IV SCH (12:17)
[2017-03-12] MEDS: ASPIRIN 81MG TABLET PO SCH (12:17)
[2017-03-13] VITALS (38 sets, daily range): BP systolic 104–162; BP diastolic 68–116
[2017-03-13] MEDS: IPRATROPIUM/ALBUTEROL 0.5-3(2.5)MG/3ML NEB HHN SCH ×7 (00:10→23:58)
[2017-03-13] MEDS: METOCLOPRAMIDE HCL 10MG/2ML VIAL IV SCH (02:20)
[2017-03-13 05:59] LABS: BASOPHILS % 0.9 % (0.0-2.0); EOSINOPHILS % 10.4 % (0.0-5.0); HEMATOCRIT. 31.3 % (36.0-48.0); LYMPHOCYTES % 13.5 % (20.0-50.0); MEAN CORPUSCULAR HEMOGLOBIN 25.5 pg (28.0-32.0); MEAN CORPUSCULAR VOLUME 79.9 fL (81.0-99.0); MEAN PLATELET VOLUME 8.4 fl (7.4-10.4); MONOCYTES % 14.8 % (2.0-8.0); NEUTROPHILS % 60.4 % (40.0-76.0); PLATELET 172 x1000/uL (130-400); RED BLOOD CELL COUNT 3.91 mill/uL (4.2-5.4); RED CELL DISTRIBUTION WIDTH 19.3 % (11.6-14.6)
[2017-03-13] MEDS: SILDENAFIL CITRATE 20MG TABLET NG SCH ×3 (06:06→21:24)
[2017-03-13] MEDS: PIPERACILLIN/TAZ 2.25G PREMIX 50 ML IV SCH ×3 (06:06→21:23)
[2017-03-13] MEDS: LANTHANUM CARBONATE 500MG CHEW TABLET PO SCH ×3 (08:43→18:11)
[2017-03-13] MEDS: PANTOPRAZOLE SODIUM 40 MG/VIAL IV SCH (08:43)
[2017-03-13] MEDS: ENOXAPARIN 30MG/0.3ML SYR SUBCUT SCH (10:01)
[2017-03-13] MEDS: CLOPIDOGREL 75MG TABLET PO SCH (10:03)
[2017-03-13] MEDS: ASPIRIN 81MG TABLET PO SCH (10:03)
[2017-03-13] MEDS: METOPROLOL TARTRATE 25MG TABLET PO SCH ×2 (10:04→21:24)
[2017-03-13] MEDS ORDERED: AMIODARONE HCL 900 MG in DEXT 5% WATER 482 ML IV PRN (16:00)
[2017-03-13] MEDS: LETAIRIS 10MG TABLET PO SCH (18:10)
[2017-03-14] VITALS (23 sets, daily range): BP systolic 119–162; BP diastolic 65–120
[2017-03-14] MEDS: LORAZEPAM 2MG/ML CPJ IV PRN (00:53)
[2017-03-14] MEDS: IPRATROPIUM/ALBUTEROL 0.5-3(2.5)MG/3ML NEB HHN SCH ×5 (03:03→20:42)
[2017-03-14] MEDS ORDERED: LIDOCAINE HCL/PF 1% 2ML VIAL ONE (05:00)
[2017-03-14 06:03] LABS: BASOPHILS % 1.3 % (0.0-2.0); EOSINOPHILS % 6.8 % (0.0-5.0); HEMATOCRIT. 32.2 % (36.0-48.0); HEMOGLOBIN. 10.5 g/dL (12.0-16.0); LYMPHOCYTES % 16.5 % (20.0-50.0); MEAN CORPUSCULAR HEMOGLOBIN 25.7 pg (28.0-32.0); MEAN PLATELET VOLUME 8.6 fl (7.4-10.4); MONOCYTES % 13.3 % (2.0-8.0); NEUTROPHILS % 62.1 % (40.0-76.0); PLATELET 200 x1000/uL (130-400); RED BLOOD CELL COUNT 4.07 mill/uL (4.2-5.4); RED CELL DISTRIBUTION WIDTH 19.7 % (11.6-14.6)
[2017-03-14] MEDS: SILDENAFIL CITRATE 20MG TABLET NG SCH ×3 (06:32→21:28)
[2017-03-14] MEDS: PIPERACILLIN/TAZ 2.25G PREMIX 50 ML IV SCH ×3 (06:32→21:21)
[2017-03-14] MEDS: CLOPIDOGREL 75MG TABLET PO SCH (09:08)
[2017-03-14] MEDS: ASPIRIN 81MG TABLET PO SCH (09:08)
[2017-03-14] MEDS: LANTHANUM CARBONATE 500MG CHEW TABLET PO SCH ×3 (09:08→18:20)
[2017-03-14] MEDS: LETAIRIS 10MG TABLET PO SCH (09:09)
[2017-03-14] MEDS: PANTOPRAZOLE SODIUM 40 MG/VIAL IV SCH (09:09)
[2017-03-14] MEDS: METHYLPREDNISOLONE SOD SUCC 40 MG/ML VIAL IV SCH ×2 (09:09→16:04)
[2017-03-14] MEDS: ENOXAPARIN 30MG/0.3ML SYR SUBCUT SCH (09:10)
[2017-03-14] MEDS: METOPROLOL TARTRATE 25MG TABLET PO SCH (13:16)
[2017-03-14] MEDS: MORPHINE SULFATE 4 MG/ML CPJ (NOT FOR IM USE) IV PRN (15:55)
[2017-03-15] VITALS (34 sets, daily range): BP systolic 106–179; BP diastolic 18–131
[2017-03-15] MEDS: METHYLPREDNISOLONE SOD SUCC 40 MG/ML VIAL IV SCH ×3 (00:28→17:17)
[2017-03-15] MEDS: METOPROLOL TARTRATE 25MG TABLET PO SCH ×4 (00:29→23:24)
[2017-03-15] MEDS: IPRATROPIUM/ALBUTEROL 0.5-3(2.5)MG/3ML NEB HHN SCH ×6 (00:40→21:01)
[2017-03-15] MEDS: PIPERACILLIN/TAZ 2.25G PREMIX 50 ML IV SCH ×3 (06:00→21:15)
[2017-03-15] MEDS: SILDENAFIL CITRATE 20MG TABLET NG SCH ×3 (06:00→22:03)
[2017-03-15 07:13] LABS: BASOPHILS % 0.6 % (0.0-2.0); HEMATOCRIT. 31.8 % (36.0-48.0); HEMOGLOBIN. 10.2 g/dL (12.0-16.0); MEAN CORPUSCULAR HEMOGLOBIN 25.1 pg (28.0-32.0); MEAN CORPUSCULAR VOLUME 78.1 fL (81.0-99.0); MEAN PLATELET VOLUME 8.7 fl (7.4-10.4); MONOCYTES % 3.2 % (2.0-8.0); NEUTROPHILS % 84.2 % (40.0-76.0); PLATELET 232 x1000/uL (130-400); RED BLOOD CELL COUNT 4.07 mill/uL (4.2-5.4); RED CELL DISTRIBUTION WIDTH 19.4 % (11.6-14.6)
[2017-03-15] MEDS: LANTHANUM CARBONATE 500MG CHEW TABLET PO SCH ×3 (07:20→17:17)
[2017-03-15] MEDS: ASPIRIN 81MG TABLET PO SCH (09:00)
[2017-03-15] MEDS: PANTOPRAZOLE SODIUM 40 MG/VIAL IV SCH (09:00)
[2017-03-15] MEDS: CLOPIDOGREL 75MG TABLET PO SCH (09:00)
[2017-03-15] MEDS: LETAIRIS 10MG TABLET PO SCH (09:01)
[2017-03-15] MEDS: ENOXAPARIN 30MG/0.3ML SYR SUBCUT SCH (09:01)
[2017-03-15 11:52] LABS: AMMONIA < 25 uMol/L (<32)
[2017-03-15 12:03] LABS: T4 FREE 1.38 ng/dL (0.76-1.46)
[2017-03-15 13:45] LABS: VITAMIN B12 SERUM > 2000.0 pg/mL (211-911)
[2017-03-15 13:51] LABS: FOLIC ACID (FOLATE) SERUM > 20.00 ng/mL (>5.38)
[2017-03-15] MEDS ORDERED: DILTIAZEM HCL 125 MG in DEXT 5% WATER 100 ML IV PRN (23:45)
[2017-03-15] MEDS: MORPHINE SULFATE 4 MG/ML CPJ (NOT FOR IM USE) IV PRN (23:52)
[2017-03-16] VITALS (12 sets, daily range): BP systolic 99–133; BP diastolic 50–89
[2017-03-16] MEDS: METHYLPREDNISOLONE SOD SUCC 40 MG/ML VIAL IV SCH ×2 (00:24→08:00)
[2017-03-16] MEDS: IPRATROPIUM/ALBUTEROL 0.5-3(2.5)MG/3ML NEB HHN SCH ×6 (01:19→20:21)
[2017-03-16] MEDS: PIPERACILLIN/TAZ 2.25G PREMIX 50 ML IV SCH ×3 (05:03→21:48)
[2017-03-16 06:06] LABS: BASOPHILS % 0.4 % (0.0-2.0); HEMATOCRIT. 32.8 % (36.0-48.0); HEMOGLOBIN. 10.6 g/dL (12.0-16.0); LYMPHOCYTES % 15.4 % (20.0-50.0); MEAN CORPUSCULAR HEMOGLOBIN 25.2 pg (28.0-32.0); MEAN CORPUSCULAR VOLUME 78.2 fL (81.0-99.0); MEAN PLATELET VOLUME 8.5 fl (7.4-10.4); MONOCYTES % 9.1 % (2.0-8.0); NEUTROPHILS % 75.1 % (40.0-76.0); PLATELET 284 x1000/uL (130-400); RED CELL DISTRIBUTION WIDTH 19.3 % (11.6-14.6)
[2017-03-16] MEDS: LANTHANUM CARBONATE 500MG CHEW TABLET PO SCH ×3 (06:36→18:08)
[2017-03-16] MEDS: SILDENAFIL CITRATE 20MG TABLET NG SCH ×3 (06:36→22:00)
[2017-03-16] MEDS: METOPROLOL TARTRATE 25MG TABLET PO SCH ×3 (06:37→23:00)
[2017-03-16] MEDS: PANTOPRAZOLE SODIUM 40 MG/VIAL IV SCH (08:00)
[2017-03-16] MEDS: LETAIRIS 10MG TABLET PO SCH (08:01)
[2017-03-16] MEDS: CLOPIDOGREL 75MG TABLET PO SCH (08:02)
[2017-03-16] MEDS: ASPIRIN 81MG TABLET PO SCH (08:02)
[2017-03-16] MEDS: ENOXAPARIN 30MG/0.3ML SYR SUBCUT SCH (08:03)
[2017-03-16] MEDS ORDERED: HYDROCODONE/ACETAMINOPHEN 5/325MG TABLET PO PRN (11:30)
[2017-03-16] MEDS: DILTIAZEM HCL 60MG TABLET PO SCH ×2 (12:25→21:00)
[2017-03-16] MEDS ORDERED: LORAZEPAM 2MG/ML CPJ IV PRN (14:15)
[2017-03-16] MEDS ORDERED: LORAZEPAM 2MG/ML CPJ IV NR (14:15)
[2017-03-17] VITALS (13 sets, daily range): BP systolic 92–123; BP diastolic 43–73
[2017-03-17] MEDS: IPRATROPIUM/ALBUTEROL 0.5-3(2.5)MG/3ML NEB HHN SCH ×3 (00:07→07:26)
[2017-03-17] MEDS: SILDENAFIL CITRATE 20MG TABLET NG SCH ×2 (06:00→14:00)
[2017-03-17 06:16] LABS: EOSINOPHILS % 0.6 % (0.0-5.0); HEMATOCRIT. 34.1 % (36.0-48.0); HEMOGLOBIN. 10.7 g/dL (12.0-16.0); LYMPHOCYTES % 16.2 % (20.0-50.0); MEAN CORPUSCULAR HEMOGLOBIN 24.6 pg (28.0-32.0); MEAN CORPUSCULAR VOLUME 78.3 fL (81.0-99.0); MEAN PLATELET VOLUME 8.4 fl (7.4-10.4); MONOCYTES % 11.4 % (2.0-8.0); NEUTROPHILS % 70.8 % (40.0-76.0); PLATELET 291 x1000/uL (130-400); RED BLOOD CELL COUNT 4.35 mill/uL (4.2-5.4); RED CELL DISTRIBUTION WIDTH 19.4 % (11.6-14.6)
[2017-03-17] MEDS: PIPERACILLIN/TAZ 2.25G PREMIX 50 ML IV SCH ×2 (06:23→14:19)
[2017-03-17] MEDS: LANTHANUM CARBONATE 500MG CHEW TABLET PO SCH ×2 (07:20→12:41)
[2017-03-17] MEDS ORDERED: PREDNISONE 20MG TABLET PO SCH (09:00)
[2017-03-17] MEDS: DILTIAZEM HCL 60MG TABLET PO SCH (12:41)
[2017-03-17] MEDS: ASPIRIN 81MG TABLET PO SCH (12:41)
[2017-03-17] MEDS: CLOPIDOGREL 75MG TABLET PO SCH (12:41)
[2017-03-17] MEDS: METOPROLOL TARTRATE 25MG TABLET PO SCH ×2 (12:42→14:43)
[2017-03-17] MEDS: PANTOPRAZOLE SODIUM 40 MG/VIAL IV SCH (12:43)
[2017-03-17] MEDS: ENOXAPARIN 30MG/0.3ML SYR SUBCUT SCH (12:43)
[2017-03-17] MEDS: LETAIRIS 10MG TABLET PO SCH (12:43)
== END 2017-03-17 16:10 | DRG 870 ==
LOC: ER 02:00 → CVICU 02:51 → EDBEDREQ 02:52 → EDBEDREQTM 02:52 → ENRESERV 04:01 → 3WST 03-14 18:55
PROVIDERS: ADMIT Internal Medicine Critical Care Medicine; ATTEND Internal Medicine Critical Care Medicine
PROC: 02HV33Z Insertion of Infusion Device into Superior Vena Cava, Percutaneous Approach (ICD-10-PCS; principal; 2017-03-06)
PROC: 5A1955Z Respiratory Ventilation, Greater than 96 Consecutive Hours (ICD-10-PCS; 2017-03-06)
PROC: B548ZZA Ultrasonography of Superior Vena Cava, Guidance (ICD-10-PCS; 2017-03-06)
PROC: 0BH17EZ Insertion of Endotracheal Airway into Trachea, Via Natural or Artificial Opening (ICD-10-PCS; 2017-03-06)
PROC: 30233N1 Transfusion of Nonautologous Red Blood Cells into Peripheral Vein, Percutaneous Approach (ICD-10-PCS; 2017-03-06)
PROC: 5A1D70Z Performance of Urinary Filtration, Intermittent, Less than 6 Hours Per Day (ICD-10-PCS; 2017-03-06)
PROC: 5A1D70Z Performance of Urinary Filtration, Intermittent, Less than 6 Hours Per Day (ICD-10-PCS; 2017-03-08)
PROC: 5A1D70Z Performance of Urinary Filtration, Intermittent, Less than 6 Hours Per Day (ICD-10-PCS; 2017-03-10)
PROC: 5A1D70Z Performance of Urinary Filtration, Intermittent, Less than 6 Hours Per Day (ICD-10-PCS; 2017-03-12)
PROC: 5A1D70Z Performance of Urinary Filtration, Intermittent, Less than 6 Hours Per Day (ICD-10-PCS; 2017-03-14)
PROC: 5A1D70Z Performance of Urinary Filtration, Intermittent, Less than 6 Hours Per Day (ICD-10-PCS; 2017-03-15)
PROC: 5A1D70Z Performance of Urinary Filtration, Intermittent, Less than 6 Hours Per Day (ICD-10-PCS; 2017-03-17)
DX: A41.9 Sepsis, unspecified organism (principal); J96.20 Acute and chronic respiratory failure, unspecified whether with hypoxia or hypercapnia; G92 Toxic encephalopathy; I13.2 Hypertensive heart and chronic kidney disease with heart failure and with stage 5 chronic kidney disease, or end stage renal disease; E46 Unspecified protein-calorie malnutrition; E11.22 Type 2 diabetes mellitus with diabetic chronic kidney disease; I95.9 Hypotension, unspecified; E87.2 Acidosis; I47.1 Supraventricular tachycardia; E11.51 Type 2 diabetes mellitus with diabetic peripheral angiopathy without gangrene; N18.6 End stage renal disease; E22.1 Hyperprolactinemia; J44.1 Chronic obstructive pulmonary disease with (acute) exacerbation; E23.0 Hypopituitarism; N25.81 Secondary hyperparathyroidism of renal origin; I50.9 Heart failure, unspecified; I27.20 Pulmonary hypertension, unspecified; Z99.2 Dependence on renal dialysis; D63.8 Anemia in other chronic diseases classified elsewhere; E05.20 Thyrotoxicosis with toxic multinodular goiter without thyrotoxic crisis or storm; E11.65 Type 2 diabetes mellitus with hyperglycemia; E55.9 Vitamin D deficiency, unspecified; E78.5 Hyperlipidemia, unspecified; G40.909 Epilepsy, unspecified, not intractable, without status epilepticus; H70.13 Chronic mastoiditis, bilateral; I25.10 Atherosclerotic heart disease of native coronary artery without angina pectoris; K21.9 Gastro-esophageal reflux disease without esophagitis; F41.9 Anxiety disorder, unspecified; F32.9 Major depressive disorder, single episode, unspecified; M19.90 Unspecified osteoarthritis, unspecified site; E87.70 Fluid overload, unspecified; R91.1 Solitary pulmonary nodule; Z80.9 Family history of malignant neoplasm, unspecified; Z82.49 Family history of ischemic heart disease and other diseases of the circulatory system; Z82.5 Family history of asthma and other chronic lower respiratory diseases; Z86.73 Personal history of transient ischemic attack (TIA), and cerebral infarction without residual deficits; Z95.5 Presence of coronary angioplasty implant and graft; Z87.891 Personal history of nicotine dependence; Z98.1 Arthrodesis status; Z99.81 Dependence on supplemental oxygen; Z79.899 Other long term (current) drug therapy; Z79.82 Long term (current) use of aspirin; I25.2 Old myocardial infarction; Z68.20 Body mass index [BMI] 20.0-20.9, adult
CPT/HCPCS: 36415; 36569; 36600; 70450; 70551; 71010; 76937; 80048; 80053; 80061; 80202; 82140; 82375; 82533; 82550; 82553; 82607; 82746; 82805; 82962; 83036; 83605; 83735; 83880; 84100; 84439; 84443; 84478; 84481; 84484; 85025; 85379; 85610; 86850; 86900; 86920; 87040; 87070; 93005; 93306; 93970; 94003; 94640; 94660; 96365; 97116; 97163; 97167; 97530; 97535; 99291; A6261; C1725; C9113; J0330; J1265; J1450; J1650; J2060; J2250; J2270; J2543; J2704; J2765; J2920; J3010; J3370; J3475; J3490; J7030; J7050; J7060; J7512; J7611; J7620; J7626; P9016; P9047; A4315

== ENCOUNTER 2017-03-17 16:20 | Inpatient (IN) | payer MEDICARE, MEDICAID ==
[~2017-03-17] VITALS: Ht 162.6 cm; Wt 59.0 kg
[2017-03-17 16:30] VITALS: BP 104/52
[2017-03-17] MEDS ORDERED: PIPERACILLIN/TAZ 2.25G PREMIX 50 ML IV SCH (18:00)
[2017-03-17] MEDS ORDERED: RACEPINEPHRINE 2.25% 0.5ML NEB VIAL HHN PRN (18:00)
[2017-03-17] MEDS ORDERED: CLONIDINE 0.1MG TABLET PO PRN (18:00)
[2017-03-17] MEDS ORDERED: ONDANSETRON HCL 4MG/2ML VIAL IV PRN (18:00)
[2017-03-17] MEDS ORDERED: DEXTROSE 50% WATER 50ML SYRINGE IV PRN (18:00)
[2017-03-17] MEDS ORDERED: LORAZEPAM 2MG/ML CPJ IV PRN (18:00)
[2017-03-17] MEDS ORDERED: IPRATROPIUM/ALBUTEROL 0.5-3(2.5)MG/3ML NEB HHN PRN (18:00)
[2017-03-17 18:28] VITALS: BP 104/52
[2017-03-17 20:00] VITALS: BP 99/60
[2017-03-17] MEDS: IPRATROPIUM/ALBUTEROL 0.5-3(2.5)MG/3ML NEB HHN SCH (20:33)
[2017-03-17] MEDS: DILTIAZEM HCL 60MG TABLET PO SCH (21:00)
[2017-03-17] MEDS: METOPROLOL TARTRATE 25MG TABLET PO SCH (22:00)
[2017-03-17] MEDS: SILDENAFIL CITRATE 20MG TABLET PO SCH (22:35)
[2017-03-18] MEDS: IPRATROPIUM/ALBUTEROL 0.5-3(2.5)MG/3ML NEB HHN SCH ×6 (00:30→21:44)
[2017-03-18] MEDS: METOPROLOL TARTRATE 25MG TABLET PO SCH ×3 (06:00→21:23)
[2017-03-18 06:23] LABS: BASOPHILS % 0.5 % (0.0-2.0); EOSINOPHILS % 0.2 % (0.0-5.0); HEMATOCRIT. 36.4 % (36.0-48.0); HEMOGLOBIN. 11.7 g/dL (12.0-16.0); LYMPHOCYTES % 16.4 % (20.0-50.0); MEAN CORPUSCULAR HEMOGLOBIN 25.4 pg (28.0-32.0); MEAN CORPUSCULAR VOLUME 78.7 fL (81.0-99.0); MEAN PLATELET VOLUME 8.4 fl (7.4-10.4); MONOCYTES % 12.2 % (2.0-8.0); NEUTROPHILS % 70.7 % (40.0-76.0); PLATELET 340 x1000/uL (130-400); RED BLOOD CELL COUNT 4.62 mill/uL (4.2-5.4); RED CELL DISTRIBUTION WIDTH 19.6 % (11.6-14.6)
[2017-03-18] MEDS: SILDENAFIL CITRATE 20MG TABLET PO SCH ×3 (06:37→21:22)
[2017-03-18 07:22] LABS: CHLORIDE 96 mEq/L (98-107)
[2017-03-18 08:00] VITALS: BP 91/54
[2017-03-18 08:10] LABS: CARBON DIOXIDE 25 mEq/L (21-32)
[2017-03-18] MEDS: DILTIAZEM HCL 60MG TABLET PO SCH ×2 (08:14→21:00)
[2017-03-18] MEDS ORDERED: PREDNISONE 20MG TABLET PO SCH (09:00)
[2017-03-18] MEDS ORDERED: ASPIRIN 81MG EC TABLET PO SCH (09:00)
[2017-03-18] MEDS ORDERED: ASPIRIN 81MG TABLET PO SCH (09:00)
[2017-03-18] MEDS ORDERED: CLOPIDOGREL 75MG TABLET PO SCH (09:00)
[2017-03-18] MEDS: ASPIRIN 81MG EC TABLET PO SCH (10:11)
[2017-03-18] MEDS: CLOPIDOGREL 75MG TABLET PO SCH (10:11)
[2017-03-18] MEDS: LANTHANUM CARBONATE 500MG CHEW TABLET PO SCH ×3 (10:11→16:36)
[2017-03-18] MEDS: ENOXAPARIN 30MG/0.3ML SYR SUBCUT SCH (10:12)
[2017-03-18] MEDS: PANTOPRAZOLE SODIUM 40 MG/VIAL IV SCH (10:12)
[2017-03-18] MEDS: LETAIRIS 10 MG PO SCH (10:17)
[2017-03-18] MEDS ORDERED: POTASSIUM CHLORIDE 10MEQ TABLET SR PO NR (16:15)
[2017-03-18] MEDS: DOCUSATE SODIUM 100MG CAPSULE PO SCH (16:36)
[2017-03-18 20:00] VITALS: BP 106/68
[2017-03-19] MEDS: IPRATROPIUM/ALBUTEROL 0.5-3(2.5)MG/3ML NEB HHN SCH ×6 (00:51→20:14)
[2017-03-19] MEDS: METOPROLOL TARTRATE 25MG TABLET PO SCH ×3 (06:00→21:16)
[2017-03-19] MEDS: SILDENAFIL CITRATE 20MG TABLET PO SCH ×3 (06:14→21:17)
[2017-03-19 07:00] VITALS: BP 101/58
[2017-03-19] MEDS: DILTIAZEM HCL 60MG TABLET PO SCH ×2 (09:00→21:00)
[2017-03-19] MEDS: ENOXAPARIN 30MG/0.3ML SYR SUBCUT SCH (09:10)
[2017-03-19] MEDS: PANTOPRAZOLE SODIUM 40 MG/VIAL IV SCH (09:11)
[2017-03-19] MEDS: LANTHANUM CARBONATE 500MG CHEW TABLET PO SCH ×3 (09:11→16:48)
[2017-03-19] MEDS: DOCUSATE SODIUM 100MG CAPSULE PO SCH ×2 (09:11→16:48)
[2017-03-19] MEDS: CLOPIDOGREL 75MG TABLET PO SCH (09:11)
[2017-03-19] MEDS: ASPIRIN 81MG EC TABLET PO SCH (09:11)
[2017-03-19] MEDS: LETAIRIS 10 MG PO SCH (09:12)
[2017-03-19 14:10] VITALS: BP 120/54
[2017-03-19 20:00] VITALS: BP 105/65
[2017-03-20] MEDS: IPRATROPIUM/ALBUTEROL 0.5-3(2.5)MG/3ML NEB HHN SCH ×6 (00:11→19:40)
[2017-03-20] MEDS: METOPROLOL TARTRATE 25MG TABLET PO SCH ×3 (05:28→22:00)
[2017-03-20] MEDS: SILDENAFIL CITRATE 20MG TABLET PO SCH ×2 (05:29→14:28)
[2017-03-20 07:09] LABS: BASOPHILS % 0.9 % (0.0-2.0); EOSINOPHILS % 4.6 % (0.0-5.0); HEMATOCRIT. 34.9 % (36.0-48.0); HEMOGLOBIN. 11.4 g/dL (12.0-16.0); LYMPHOCYTES % 15.3 % (20.0-50.0); MEAN CORPUSCULAR HEMOGLOBIN 25.4 pg (28.0-32.0); MEAN PLATELET VOLUME 8.3 fl (7.4-10.4); MONOCYTES % 6.8 % (2.0-8.0); NEUTROPHILS % 72.4 % (40.0-76.0); PLATELET 365 x1000/uL (130-400); RED BLOOD CELL COUNT 4.48 mill/uL (4.2-5.4); RED CELL DISTRIBUTION WIDTH 19.1 % (11.6-14.6)
[2017-03-20 08:00] VITALS: BP 123/72
[2017-03-20] MEDS: FAMOTIDINE 20MG TABLET PO SCH (08:21)
[2017-03-20] MEDS: CLOPIDOGREL 75MG TABLET PO SCH (08:21)
[2017-03-20] MEDS: ENOXAPARIN 30MG/0.3ML SYR SUBCUT SCH (08:21)
[2017-03-20] MEDS: LETAIRIS 10 MG PO SCH (08:23)
[2017-03-20] MEDS: HYDROCODONE/ACETAMINOPHEN 5/325MG TABLET PO PRN ×2 (08:23→22:09)
[2017-03-20] MEDS: DOCUSATE SODIUM 100MG CAPSULE PO SCH ×2 (08:23→16:50)
[2017-03-20] MEDS: LANTHANUM CARBONATE 500MG CHEW TABLET PO SCH ×3 (08:23→16:50)
[2017-03-20] MEDS: ASPIRIN 81MG EC TABLET PO SCH (08:24)
[2017-03-20] MEDS: DILTIAZEM HCL 60MG TABLET PO SCH ×2 (08:24→21:00)
[2017-03-20 20:00] VITALS: BP 91/62
[2017-03-21] MEDS: IPRATROPIUM/ALBUTEROL 0.5-3(2.5)MG/3ML NEB HHN SCH ×6 (00:11→20:27)
[2017-03-21] MEDS: SILDENAFIL CITRATE 20MG TABLET PO SCH ×4 (00:30→22:28)
[2017-03-21 05:58] LABS: BASOPHILS % 0.7 % (0.0-2.0); EOSINOPHILS % 6.3 % (0.0-5.0); HEMATOCRIT. 34.3 % (36.0-48.0); HEMOGLOBIN. 10.8 g/dL (12.0-16.0); LYMPHOCYTES % 11.6 % (20.0-50.0); MEAN CORPUSCULAR HEMOGLOBIN 24.7 pg (28.0-32.0); MEAN CORPUSCULAR VOLUME 78.5 fL (81.0-99.0); MEAN PLATELET VOLUME 8.5 fl (7.4-10.4); MONOCYTES % 8.3 % (2.0-8.0); NEUTROPHILS % 73.1 % (40.0-76.0); PLATELET 331 x1000/uL (130-400); RED BLOOD CELL COUNT 4.37 mill/uL (4.2-5.4); RED CELL DISTRIBUTION WIDTH 19.1 % (11.6-14.6)
[2017-03-21] MEDS: METOPROLOL TARTRATE 25MG TABLET PO SCH ×3 (06:00→22:00)
[2017-03-21 08:00] VITALS: BP 83/43
[2017-03-21] MEDS: DILTIAZEM HCL 60MG TABLET PO SCH ×2 (09:00→21:00)
[2017-03-21] MEDS: DOCUSATE SODIUM 100MG CAPSULE PO SCH ×2 (09:50→16:07)
[2017-03-21] MEDS: CLOPIDOGREL 75MG TABLET PO SCH (09:50)
[2017-03-21] MEDS: LANTHANUM CARBONATE 500MG CHEW TABLET PO SCH ×3 (09:50→16:07)
[2017-03-21] MEDS: ENOXAPARIN 30MG/0.3ML SYR SUBCUT SCH (09:50)
[2017-03-21] MEDS: FAMOTIDINE 20MG TABLET PO SCH (09:50)
[2017-03-21] MEDS: ASPIRIN 81MG EC TABLET PO SCH (09:50)
[2017-03-21] MEDS: LETAIRIS 10 MG PO SCH (09:52)
[2017-03-21] MEDS ORDERED: POTASSIUM CHLORIDE 20MEQ TABLET SR PO NR (11:30)
[2017-03-21] MEDS: ACETAMINOPHEN 325MG TABLET PO PRN (12:18)
[2017-03-21 20:00] VITALS: BP 115/66
[2017-03-22] MEDS: IPRATROPIUM/ALBUTEROL 0.5-3(2.5)MG/3ML NEB HHN SCH ×6 (00:27→20:55)
[2017-03-22] MEDS: ACETAMINOPHEN 325MG TABLET PO PRN (04:05)
[2017-03-22] MEDS: SILDENAFIL CITRATE 20MG TABLET PO SCH ×3 (05:56→22:00)
[2017-03-22] MEDS: METOPROLOL TARTRATE 25MG TABLET PO SCH ×3 (06:00→21:35)
[2017-03-22 06:40] LABS: EOSINOPHILS % 8.9 % (0.0-5.0); HEMATOCRIT. 31.9 % (36.0-48.0); HEMOGLOBIN. 10.2 g/dL (12.0-16.0); LYMPHOCYTES % 15.6 % (20.0-50.0); MEAN CORPUSCULAR HEMOGLOBIN 25.2 pg (28.0-32.0); MEAN CORPUSCULAR VOLUME 78.6 fL (81.0-99.0); MEAN PLATELET VOLUME 8.2 fl (7.4-10.4); MONOCYTES % 8.2 % (2.0-8.0); NEUTROPHILS % 66.3 % (40.0-76.0); PLATELET 309 x1000/uL (130-400); RED BLOOD CELL COUNT 4.06 mill/uL (4.2-5.4); RED CELL DISTRIBUTION WIDTH 19.4 % (11.6-14.6)
[2017-03-22 08:00] VITALS: BP 109/70
[2017-03-22] MEDS: LANTHANUM CARBONATE 500MG CHEW TABLET PO SCH ×3 (08:32→17:00)
[2017-03-22] MEDS: CLOPIDOGREL 75MG TABLET PO SCH (08:34)
[2017-03-22] MEDS: ASPIRIN 81MG EC TABLET PO SCH (08:34)
[2017-03-22] MEDS: FAMOTIDINE 20MG TABLET PO SCH (08:34)
[2017-03-22] MEDS: LETAIRIS 10 MG PO SCH (08:35)
[2017-03-22] MEDS: DOCUSATE SODIUM 100MG CAPSULE PO SCH ×2 (08:35→17:00)
[2017-03-22] MEDS: ENOXAPARIN 30MG/0.3ML SYR SUBCUT SCH (08:38)
[2017-03-22] MEDS: DILTIAZEM HCL 60MG TABLET PO SCH ×2 (08:39→21:00)
[2017-03-22] MEDS ORDERED: SODIUM CHLORIDE 0.9% 250 ML IV SCH (09:01)
[2017-03-22 09:10] VITALS: BP 85/46
[2017-03-22] MEDS: HYDROCODONE/ACETAMINOPHEN 5/325MG TABLET PO PRN (12:24)
[2017-03-22 12:29] VITALS: BP 110/75
[2017-03-22] MEDS: MIDODRINE HCL 5MG TABLET PO SCH ×2 (13:00→17:00)
[2017-03-22 20:06] VITALS: BP 102/46
[2017-03-22] MEDS ORDERED: LORAZEPAM 0.5MG TABLET PO PRN (21:00)
[2017-03-23] VITALS (7 sets, daily range): BP systolic 92–145; BP diastolic 48–86
[2017-03-23] MEDS: IPRATROPIUM/ALBUTEROL 0.5-3(2.5)MG/3ML NEB HHN SCH ×6 (01:27→19:51)
[2017-03-23] MEDS: SILDENAFIL CITRATE 20MG TABLET PO SCH ×3 (05:49→23:00)
[2017-03-23] MEDS: METOPROLOL TARTRATE 25MG TABLET PO SCH ×3 (05:49→23:07)
[2017-03-23] MEDS: MIDODRINE HCL 5MG TABLET PO SCH ×3 (09:00→16:42)
[2017-03-23] MEDS: LANTHANUM CARBONATE 500MG CHEW TABLET PO SCH ×3 (09:11→16:42)
[2017-03-23] MEDS: DILTIAZEM HCL 60MG TABLET PO SCH ×2 (09:11→23:00)
[2017-03-23] MEDS: DOCUSATE SODIUM 100MG CAPSULE PO SCH ×2 (09:11→16:42)
[2017-03-23] MEDS: ASPIRIN 81MG EC TABLET PO SCH (09:11)
[2017-03-23] MEDS: CLOPIDOGREL 75MG TABLET PO SCH (09:11)
[2017-03-23] MEDS: FAMOTIDINE 20MG TABLET PO SCH (09:11)
[2017-03-23] MEDS: ENOXAPARIN 30MG/0.3ML SYR SUBCUT SCH (09:12)
[2017-03-23] MEDS: AMIODARONE HCL 200 MG TABLET PO SCH (09:15)
[2017-03-23] MEDS: LETAIRIS 10 MG PO SCH (09:15)
[2017-03-23] MEDS: HYDROCODONE/ACETAMINOPHEN 5/325MG TABLET PO PRN ×2 (10:01→23:09)
[2017-03-24] VITALS (9 sets, daily range): BP systolic 90–139; BP diastolic 45–110
[2017-03-24] MEDS: IPRATROPIUM/ALBUTEROL 0.5-3(2.5)MG/3ML NEB HHN SCH ×6 (00:06→16:28)
[2017-03-24] MEDS: HYDROCODONE/ACETAMINOPHEN 5/325MG TABLET PO PRN ×3 (03:33→16:41)
[2017-03-24] MEDS: METOPROLOL TARTRATE 25MG TABLET PO SCH ×2 (06:00→13:53)
[2017-03-24] MEDS: SILDENAFIL CITRATE 20MG TABLET PO SCH ×2 (06:00→13:52)
[2017-03-24 06:43] LABS: EOSINOPHILS % 11.8 % (0.0-5.0); HEMATOCRIT. 32.6 % (36.0-48.0); HEMOGLOBIN. 10.4 g/dL (12.0-16.0); LYMPHOCYTES % 16.6 % (20.0-50.0); MEAN CORPUSCULAR HEMOGLOBIN 25.1 pg (28.0-32.0); MONOCYTES % 9.4 % (2.0-8.0); NEUTROPHILS % 61.2 % (40.0-76.0); PLATELET 293 x1000/uL (130-400); RED BLOOD CELL COUNT 4.12 mill/uL (4.2-5.4); RED CELL DISTRIBUTION WIDTH 19.8 % (11.6-14.6)
[2017-03-24 07:29] LABS: PHOSPHORUS 6.8 mg/dL (2.5-4.9)
[2017-03-24] MEDS: DOCUSATE SODIUM 100MG CAPSULE PO SCH (08:37)
[2017-03-24] MEDS: LANTHANUM CARBONATE 500MG CHEW TABLET PO SCH ×2 (08:37→13:52)
[2017-03-24] MEDS: CLOPIDOGREL 75MG TABLET PO SCH (08:37)
[2017-03-24] MEDS: ENOXAPARIN 30MG/0.3ML SYR SUBCUT SCH (08:37)
[2017-03-24] MEDS: ASPIRIN 81MG EC TABLET PO SCH (08:37)
[2017-03-24] MEDS: LETAIRIS 10 MG PO SCH (08:38)
[2017-03-24] MEDS: MIDODRINE HCL 5MG TABLET PO SCH ×2 (08:38→13:52)
[2017-03-24] MEDS: FAMOTIDINE 20MG TABLET PO SCH (08:38)
[2017-03-24] MEDS: AMIODARONE HCL 200 MG TABLET PO SCH (08:42)
[2017-03-24] MEDS: DILTIAZEM HCL 60MG TABLET PO SCH (08:43)
[2017-03-24] MEDS ORDERED: HYDROCODONE/ACETAMINOPHEN 10/325MG TABLET PO PRN (10:00)
== END 2017-03-24 17:04 | disposition short-term general hospital (02) | DRG 189 ==
PROVIDERS: ADMIT Psychiatry & Neurology Neurology; ATTEND Internal Medicine Critical Care Medicine
PROC: 5A1D70Z Performance of Urinary Filtration, Intermittent, Less than 6 Hours Per Day (ICD-10-PCS; principal; 2017-03-20)
PROC: 5A1D70Z Performance of Urinary Filtration, Intermittent, Less than 6 Hours Per Day (ICD-10-PCS; 2017-03-21)
PROC: 5A1D70Z Performance of Urinary Filtration, Intermittent, Less than 6 Hours Per Day (ICD-10-PCS; 2017-03-22)
PROC: 5A1D70Z Performance of Urinary Filtration, Intermittent, Less than 6 Hours Per Day (ICD-10-PCS; 2017-03-23)
PROC: 5A1D70Z Performance of Urinary Filtration, Intermittent, Less than 6 Hours Per Day (ICD-10-PCS; 2017-03-24)
DX: J96.10 Chronic respiratory failure, unspecified whether with hypoxia or hypercapnia (principal); I13.2 Hypertensive heart and chronic kidney disease with heart failure and with stage 5 chronic kidney disease, or end stage renal disease; G92 Toxic encephalopathy; J84.9 Interstitial pulmonary disease, unspecified; I27.20 Pulmonary hypertension, unspecified; N18.6 End stage renal disease; D72.1 Eosinophilia; I47.1 Supraventricular tachycardia; N25.81 Secondary hyperparathyroidism of renal origin; M86.8X7 Other osteomyelitis, ankle and foot; E87.1 Hypo-osmolality and hyponatremia; R53.81 Other malaise; I48.0 Paroxysmal atrial fibrillation; G62.9 Polyneuropathy, unspecified; L97.519 Non-pressure chronic ulcer of other part of right foot with unspecified severity; M48.02 Spinal stenosis, cervical region; I50.9 Heart failure, unspecified; K21.9 Gastro-esophageal reflux disease without esophagitis; J44.9 Chronic obstructive pulmonary disease, unspecified; I73.9 Peripheral vascular disease, unspecified; I25.10 Atherosclerotic heart disease of native coronary artery without angina pectoris; H70.13 Chronic mastoiditis, bilateral; E87.6 Hypokalemia; E04.2 Nontoxic multinodular goiter; L03.031 Cellulitis of right toe; F06.31 Mood disorder due to known physiological condition with depressive features; G40.909 Epilepsy, unspecified, not intractable, without status epilepticus; E03.9 Hypothyroidism, unspecified; D64.9 Anemia, unspecified; R26.9 Unspecified abnormalities of gait and mobility; M19.90 Unspecified osteoarthritis, unspecified site; K59.00 Constipation, unspecified; Z87.01 Personal history of pneumonia (recurrent); Z82.49 Family history of ischemic heart disease and other diseases of the circulatory system; Z83.3 Family history of diabetes mellitus; Z99.81 Dependence on supplemental oxygen; Z82.3 Family history of stroke; Z86.73 Personal history of transient ischemic attack (TIA), and cerebral infarction without residual deficits; Z95.5 Presence of coronary angioplasty implant and graft; Z98.1 Arthrodesis status; Z99.2 Dependence on renal dialysis; I25.2 Old myocardial infarction; Z79.82 Long term (current) use of aspirin; Z79.899 Other long term (current) drug therapy
CPT/HCPCS: 36415; 73630; 73721; 80048; 80053; 82330; 82962; 83880; 84100; 85025; 92610; 93005; 93923; 93970; 94640; 94664; 97110; 97116; 97162; 97166; 97530; 97535; C9113; J1650; J7030; J7040; J7050; J7512; J7620

== ENCOUNTER 2017-04-12 13:23 | Emergency (ER) | payer MEDICARE, MEDICAID ==
[~2017-04-12] VITALS: Ht 162.6 cm; Wt 70.0 kg
[~2017-04-12 13:23] MED LIST changes: -CARV3.1242 PO; -CINA90TA PO; -CLON0.1T PO; -GABA-531 PO; -RENA VITE PO; -SEVE800T8 PO; -SILV20CR13 TP
[2017-04-12] MEDS ORDERED: ALBUTEROL (0.083%) 2.5MG/3ML NEB HHN STA (14:01)
[2017-04-12 14:11] LABS: BASOPHILS % 0.8 % (0.0-2.0); EOSINOPHILS % 13.6 % (0.0-5.0); HEMATOCRIT. 27.9 % (36.0-48.0); HEMOGLOBIN. 8.7 g/dL (12.0-16.0); LYMPHOCYTES % 9.8 % (20.0-50.0); MEAN CORPUSCULAR HEMOGLOBIN 24.6 pg (28.0-32.0); MEAN CORPUSCULAR VOLUME 78.8 fL (81.0-99.0); MEAN PLATELET VOLUME 6.9 fl (7.4-10.4); MONOCYTES % 9.9 % (2.0-8.0); NEUTROPHILS % 65.9 % (40.0-76.0); PLATELET 170 x1000/uL (130-400); RED BLOOD CELL COUNT 3.55 mill/uL (4.2-5.4)
[2017-04-12 14:24] LABS: CARBON DIOXIDE 34 mEq/L (21-32); CHLORIDE 98 mEq/L (98-107)
[2017-04-12 19:29] VITALS: BP 155/88
== END 2017-04-12 19:46 | disposition home or self-care (01) ==
LOC: ER 13:26
DX: R06.03 Acute respiratory distress (principal); I12.0 Hypertensive chronic kidney disease with stage 5 chronic kidney disease or end stage renal disease; N18.6 End stage renal disease; J44.9 Chronic obstructive pulmonary disease, unspecified; Z79.82 Long term (current) use of aspirin; Z99.2 Dependence on renal dialysis
CPT/HCPCS: 36415; 71010; 80053; 85025; 93005; 94640; 99285; J7611

== ENCOUNTER 2017-07-10 03:33 | Emergency (ER) | payer MEDICARE ==
[~2017-07-10] VITALS: Ht 162.6 cm; Wt 49.0 kg
[~2017-07-10 03:33] MED LIST changes: +CINA30 PO; +CLON0.1T PO; +COR3 PO; +GABA-531 PO; +NEPVIT PO; +SEVE800T8 PO; +TRAM50TA3 PO
[2017-07-10 04:42] LABS: HEMATOCRIT. 34.8 % (36.0-48.0); HEMOGLOBIN. 10.8 g/dL (12.0-16.0); MEAN CORPUSCULAR VOLUME 74.3 fL (81.0-99.0); MEAN PLATELET VOLUME 8.5 fl (7.4-10.4); PLATELET 341 x1000/uL (130-400); RED BLOOD CELL COUNT 4.69 mill/uL (4.2-5.4); RED CELL DISTRIBUTION WIDTH 21.3 % (11.6-14.6)
[2017-07-10 04:48] LABS: INR 1.1; PROTHROMBIN TIME 10.9 sec (9.4-11.6)
[2017-07-10 04:54] LABS: CHLORIDE 94 mEq/L (98-107)
[2017-07-10 05:11] LABS: PLATELET ESTIMATE NORMAL
[2017-07-10 08:55] VITALS: BP 157/68
== END 2017-07-10 09:17 | disposition home or self-care (01) ==
LOC: ER 03:33
DX: D25.9 Leiomyoma of uterus, unspecified (principal); N93.9 Abnormal uterine and vaginal bleeding, unspecified; R19.09 Other intra-abdominal and pelvic swelling, mass and lump; K80.20 Calculus of gallbladder without cholecystitis without obstruction; I12.0 Hypertensive chronic kidney disease with stage 5 chronic kidney disease or end stage renal disease; N18.6 End stage renal disease; K57.90 Diverticulosis of intestine, part unspecified, without perforation or abscess without bleeding; I48.91 Unspecified atrial fibrillation; K21.9 Gastro-esophageal reflux disease without esophagitis; I25.10 Atherosclerotic heart disease of native coronary artery without angina pectoris; J44.9 Chronic obstructive pulmonary disease, unspecified; J98.11 Atelectasis; Z99.2 Dependence on renal dialysis; Z79.82 Long term (current) use of aspirin
CPT/HCPCS: 36415; 74176; 76830; 76856; 80053; 85025; 85610; 86850; 86900; 99285

== ENCOUNTER 2017-08-18 09:28 | Emergency (ER) | payer MEDICARE ==
[~2017-08-18] VITALS: Ht 160 cm; Wt 58.0 kg
[~2017-08-18 09:28] MED LIST changes: +CEPH-568 PO
[2017-08-18 11:15] LABS: EOSINOPHILS % 2.2 % (0.0-5.0); HEMATOCRIT. 29.8 % (36.0-48.0); HEMOGLOBIN. 9.2 g/dL (12.0-16.0); LYMPHOCYTES % 18.1 % (20.0-50.0); MEAN CORPUSCULAR HEMOGLOBIN 23.9 pg (28.0-32.0); MEAN CORPUSCULAR VOLUME 77.7 fL (81.0-99.0); MEAN PLATELET VOLUME 7.3 fl (7.4-10.4); MONOCYTES % 9.4 % (2.0-8.0); NEUTROPHILS % 69.3 % (40.0-76.0); PLATELET 360 x1000/uL (130-400); RED BLOOD CELL COUNT 3.84 mill/uL (4.2-5.4); RED CELL DISTRIBUTION WIDTH 27.1 % (11.6-14.6)
[2017-08-18 11:33] LABS: PLATELET ESTIMATE NORMAL
[2017-08-18 12:23] VITALS: BP 189/52
[2017-08-18] MEDS ORDERED: HYDROCODONE/ACETAMINOPHEN 5/325MG TABLET PO ONE (12:45)
== END 2017-08-18 13:15 | disposition home or self-care (01) ==
LOC: ER 09:28
DX: S00.03XA Contusion of scalp, initial encounter (principal); D64.9 Anemia, unspecified; I48.91 Unspecified atrial fibrillation; I10 Essential (primary) hypertension; J44.9 Chronic obstructive pulmonary disease, unspecified; E05.90 Thyrotoxicosis, unspecified without thyrotoxic crisis or storm; K21.9 Gastro-esophageal reflux disease without esophagitis; I25.10 Atherosclerotic heart disease of native coronary artery without angina pectoris; W06.XXXA Fall from bed, initial encounter; Y93.89 Activity, other specified; Y92.89 Other specified places as the place of occurrence of the external cause; Y99.8 Other external cause status; Z79.02 Long term (current) use of antithrombotics/antiplatelets; Z99.2 Dependence on renal dialysis; Z79.82 Long term (current) use of aspirin; Z89.429 Acquired absence of other toe(s), unspecified side
CPT/HCPCS: 36415; 70450; 80048; 85025; 99285

== ENCOUNTER 2017-08-20 07:25 | Inpatient (IN) | payer MEDICARE ==
[~2017-08-20] VITALS: Ht 162.6 cm; Wt 51.9 kg
[2017-08-20 08:35] LABS: BASOPHILS % 1.4 % (0.0-2.0); HEMATOCRIT. 30.3 % (36.0-48.0); HEMOGLOBIN. 9.4 g/dL (12.0-16.0); LYMPHOCYTES % 18.6 % (20.0-50.0); MEAN CORPUSCULAR HEMOGLOBIN 23.9 pg (28.0-32.0); MEAN CORPUSCULAR VOLUME 77.2 fL (81.0-99.0); MEAN PLATELET VOLUME 7.5 fl (7.4-10.4); MONOCYTES % 7.7 % (2.0-8.0); NEUTROPHILS % 70.3 % (40.0-76.0); PLATELET 415 x1000/uL (130-400); RED BLOOD CELL COUNT 3.92 mill/uL (4.2-5.4); RED CELL DISTRIBUTION WIDTH 26.5 % (11.6-14.6)
[2017-08-20 08:40] LABS: CHLORIDE 95 mEq/L (98-107)
[2017-08-20 08:43] LABS: INR 1.2; PROTHROMBIN TIME 12.2 sec (9.4-11.6)
[2017-08-20 09:34] LABS: PLATELET ESTIMATE INCREASED
[2017-08-20] MEDS ORDERED: LEVOFLOXACIN 500MG PREMIX 100 ML IV SCH (10:45)
[2017-08-20] MEDS ORDERED: ENOXAPARIN 40MG/0.4ML SYR SUBCUT SCH (10:45)
[2017-08-20] MEDS ORDERED: SODIUM POLYSTYRENE SULFONATE 15 G/60 ML BOT PO NR (12:34)
[2017-08-20] MEDS ORDERED: LEVOFLOXACIN 500MG PREMIX 100 ML IV NR (12:35)
[2017-08-20 17:00] VITALS: BP 154/93
[2017-08-20 17:30] VITALS: BP 154/93
[2017-08-20] MEDS ORDERED: ACETAMINOPHEN 325MG TABLET PO PRN (18:30)
[2017-08-20] MEDS ORDERED: GUAIFENESIN 200MG/10ML SUGAR FREE UDC PO PRN (18:30)
[2017-08-20] MEDS ORDERED: NA PHOS,M-B/NA PHOS,DI-BA ENEMA 118ML PR PRN (18:30)
[2017-08-20] MEDS ORDERED: DIPHENHYDRAMINE 50MG/ML VIAL IV PRN (18:30)
[2017-08-20] MEDS ORDERED: ONDANSETRON HCL 4MG/2ML VIAL IV PRN (19:00)
[2017-08-20] MEDS ORDERED: IPRATROPIUM/ALBUTEROL 0.5-3(2.5)MG/3ML NEB HHN SCH (19:00)
[2017-08-20] MEDS ORDERED: IPRATROPIUM/ALBUTEROL 0.5-3(2.5)MG/3ML NEB INH PRN ×2 (19:00→20:00)
[2017-08-20] MEDS ORDERED: MAGNESIUM/ALUMINUM HYDROXIDE/SIMETHICONE 30ML UDC PO PRN (19:00)
[2017-08-20] MEDS ORDERED: DEXTROSE 50% WATER 50ML SYRINGE IV PRN (19:15)
[2017-08-20] MEDS: CARVEDILOL 3.125 MG TABLET PO SCH (19:16)
[2017-08-20] MEDS: ENOXAPARIN 30MG/0.3ML SYR SUBCUT SCH (19:16)
[2017-08-20 20:00] VITALS: BP 163/96
[2017-08-20 20:34] LABS: CREATINE KINASE MB FRACTION 1.7 ng/mL (0.5-3.6)
[2017-08-20] MEDS: INSULIN LISPRO 100 UNITS/ML SUBCUT SCH (20:39)
[2017-08-20] MEDS: BLOOD SUGAR DIAGNOSTIC STRIP TEST SCH (20:39)
[2017-08-20] MEDS: METHYLPREDNISOLONE SOD SUCC 40 MG/ML VIAL IV SCH (20:46)
[2017-08-20] MEDS: MORPHINE SULFATE 4 MG/ML CPJ (NOT FOR IM USE) IV PRN (20:47)
[2017-08-20] MEDS: FAMOTIDINE 20MG/2ML VIAL IV SCH (20:47)
[2017-08-20] MEDS ORDERED: ZOLPIDEM TARTRATE 5MG TABLET PO PRN (21:00)
[2017-08-20] MEDS ORDERED: VANCOMYCIN 1,250 MG in SODIUM CHLORIDE 0.9% 250 ML IV NR ×2 (21:00→22:30)
[2017-08-20 23:15] LABS: CREATINE KINASE MB FRACTION 1.7 ng/mL (0.5-3.6)
[2017-08-21] VITALS: BP 152/90
[2017-08-21] MEDS: IPRATROPIUM/ALBUTEROL 0.5-3(2.5)MG/3ML NEB HHN SCH ×7 (03:19→23:39)
[2017-08-21] MEDS: MORPHINE SULFATE 4 MG/ML CPJ (NOT FOR IM USE) IV PRN (03:48)
[2017-08-21 04:00] VITALS: BP 147/97
[2017-08-21] MEDS: CARVEDILOL 3.125 MG TABLET PO SCH ×2 (05:57→18:16)
[2017-08-21] MEDS: METHYLPREDNISOLONE SOD SUCC 40 MG/ML VIAL IV SCH ×2 (05:58→14:35)
[2017-08-21] MEDS: BLOOD SUGAR DIAGNOSTIC STRIP TEST SCH ×4 (06:44→21:13)
[2017-08-21 08:00] VITALS: BP 149/95
[2017-08-21] MEDS: SEVELAMER CARBONATE 800 MG TABLET PO SCH ×3 (08:20→18:16)
[2017-08-21] MEDS: FOLIC ACID/VITAMIN B COMP W-C TABLET PO SCH (08:20)
[2017-08-21] MEDS: INSULIN LISPRO 100 UNITS/ML SUBCUT SCH ×4 (08:22→21:00)
[2017-08-21] MEDS ORDERED: ASPIRIN 325MG EC TABLET PO SCH (09:00)
[2017-08-21] MEDS ORDERED: CLOPIDOGREL 75MG TABLET PO SCH (09:00)
[2017-08-21 09:40] LABS: BASOPHILS % 0.4 % (0.0-2.0); EOSINOPHILS % 0.1 % (0.0-5.0); HEMATOCRIT. 32.2 % (36.0-48.0); HEMOGLOBIN. 10.1 g/dL (12.0-16.0); LYMPHOCYTES % 12.7 % (20.0-50.0); MEAN CORPUSCULAR HEMOGLOBIN 23.9 pg (28.0-32.0); MEAN CORPUSCULAR VOLUME 76.5 fL (81.0-99.0); MEAN PLATELET VOLUME 7.5 fl (7.4-10.4); MONOCYTES % 0.9 % (2.0-8.0); NEUTROPHILS % 85.9 % (40.0-76.0); PLATELET 448 x1000/uL (130-400); RED BLOOD CELL COUNT 4.21 mill/uL (4.2-5.4); RED CELL DISTRIBUTION WIDTH 25.4 % (11.6-14.6)
[2017-08-21 12:00] VITALS: BP 130/75
[2017-08-21] MEDS ORDERED: NON FORMULARY PATIENT HOME MED EA XX SCH (15:15)
[2017-08-21 16:00] VITALS: BP 144/84
[2017-08-21] MEDS: ENOXAPARIN 30MG/0.3ML SYR SUBCUT SCH (18:30)
[2017-08-21 20:00] VITALS: BP 139/77
[2017-08-21] MEDS: FAMOTIDINE 20MG/2ML VIAL IV SCH (21:19)
[2017-08-21] MEDS: TRAMADOL 50MG TABLET PO PRN (21:28)
[2017-08-22] VITALS (7 sets, daily range): BP systolic 119–156; BP diastolic 77–89
[2017-08-22] MEDS: IPRATROPIUM/ALBUTEROL 0.5-3(2.5)MG/3ML NEB HHN SCH ×5 (03:59→21:46)
[2017-08-22] MEDS: CARVEDILOL 3.125 MG TABLET PO SCH ×2 (06:13→18:00)
[2017-08-22] MEDS: BLOOD SUGAR DIAGNOSTIC STRIP TEST SCH ×4 (07:40→21:48)
[2017-08-22] MEDS: SEVELAMER CARBONATE 800 MG TABLET PO SCH ×3 (08:10→18:10)
[2017-08-22] MEDS: INSULIN LISPRO 100 UNITS/ML SUBCUT SCH ×4 (08:10→21:00)
[2017-08-22] MEDS: FOLIC ACID/VITAMIN B COMP W-C TABLET PO SCH (09:00)
[2017-08-22 09:48] LABS: BASOPHILS % 0.8 % (0.0-2.0); HEMATOCRIT. 30.4 % (36.0-48.0); HEMOGLOBIN. 9.1 g/dL (12.0-16.0); LYMPHOCYTES % 14.8 % (20.0-50.0); MEAN CORPUSCULAR HEMOGLOBIN 23.3 pg (28.0-32.0); MEAN CORPUSCULAR VOLUME 77.9 fL (81.0-99.0); MEAN PLATELET VOLUME 7.7 fl (7.4-10.4); MONOCYTES % 3.2 % (2.0-8.0); NEUTROPHILS % 81.2 % (40.0-76.0); PLATELET 391 x1000/uL (130-400); RED CELL DISTRIBUTION WIDTH 26.3 % (11.6-14.6)
[2017-08-22] MEDS ORDERED: VANCOMYCIN 1 G PREMIX 200 ML IV NR (10:00)
[2017-08-22 10:48] LABS: AMMONIA < 10 uMol/L (<32)
[2017-08-22] MEDS: LEVOFLOXACIN 250MG PREMIX 50 ML IV SCH (13:48)
[2017-08-22] MEDS ORDERED: DEXT 5%/0.45% NACL 1000ML 1,000 ML IV ONE (14:00)
[2017-08-22] MEDS: ENOXAPARIN 30MG/0.3ML SYR SUBCUT SCH (18:30)
[2017-08-22] MEDS ORDERED: LIDOCAINE HCL/PF 1% 10 MG/ML 5ML VIAL ONE ×3 (18:39→19:46)
[2017-08-22] MEDS ORDERED: GENTAMICIN SULF 40MG/ML 2ML VIAL ONE (18:39)
[2017-08-22] MEDS ORDERED: BUPIVACAINE HCL/PF 0.5% (5MG/ML) 10ML ONE (18:40)
[2017-08-22] MEDS ORDERED: BACITRACIN ZINC 15GM TUBE TOP ONE (18:40)
[2017-08-22] MEDS ORDERED: NORMAL SALINE 0.9% 10 ML SYR ONE (18:40)
[2017-08-22] MEDS ORDERED: BACITRACIN 50,000 UNITS/VIAL ONE (18:41)
[2017-08-22] MEDS ORDERED: PROPOFOL 200MG/20ML VIAL IV ONE (19:11)
[2017-08-22] MEDS ORDERED: EPHEDRINE SULFATE 50MG/ML VIAL ONE (20:03)
[2017-08-22] MEDS ORDERED: MORPHINE SULFATE 4 MG/ML CPJ (NOT FOR IM USE) IV PRN (20:45)
[2017-08-22] MEDS: FAMOTIDINE 20MG/2ML VIAL IV SCH (21:47)
[2017-08-22] MEDS: MORPHINE SULFATE 4 MG/ML CPJ (NOT FOR IM USE) IV PRN (22:40)
[2017-08-23] VITALS: BP 118/69
[2017-08-23 04:00] VITALS: BP 143/81
[2017-08-23] MEDS: CARVEDILOL 3.125 MG TABLET PO SCH ×2 (05:56→09:15)
[2017-08-23] MEDS: MORPHINE SULFATE 4 MG/ML CPJ (NOT FOR IM USE) IV PRN (06:03)
[2017-08-23 06:54] LABS: BASOPHILS % 0.9 % (0.0-2.0); EOSINOPHILS % 0.9 % (0.0-5.0); HEMOGLOBIN. 8.6 g/dL (12.0-16.0); LYMPHOCYTES % 14.4 % (20.0-50.0); MEAN CORPUSCULAR HEMOGLOBIN 23.3 pg (28.0-32.0); MEAN CORPUSCULAR VOLUME 76.3 fL (81.0-99.0); MEAN PLATELET VOLUME 7.6 fl (7.4-10.4); MONOCYTES % 8.4 % (2.0-8.0); NEUTROPHILS % 75.4 % (40.0-76.0); PLATELET 383 x1000/uL (130-400); RED BLOOD CELL COUNT 3.68 mill/uL (4.2-5.4); RED CELL DISTRIBUTION WIDTH 25.8 % (11.6-14.6)
[2017-08-23] MEDS: BLOOD SUGAR DIAGNOSTIC STRIP TEST SCH ×4 (07:40→21:00)
[2017-08-23 08:00] VITALS: BP 162/82
[2017-08-23] MEDS: INSULIN LISPRO 100 UNITS/ML SUBCUT SCH ×4 (08:10→21:00)
[2017-08-23] MEDS: SEVELAMER CARBONATE 800 MG TABLET PO SCH ×3 (09:15→18:37)
[2017-08-23] MEDS: FOLIC ACID/VITAMIN B COMP W-C TABLET PO SCH (09:15)
[2017-08-23] MEDS: IPRATROPIUM/ALBUTEROL 0.5-3(2.5)MG/3ML NEB HHN SCH ×4 (10:10→21:35)
[2017-08-23 12:00] VITALS: BP 168/82
[2017-08-23] MEDS: TRAMADOL 50MG TABLET PO PRN ×2 (13:16→21:20)
[2017-08-23] MEDS: HYDROCODONE/ACETAMINOPHEN 5/325MG TABLET PO PRN (15:26)
[2017-08-23 16:00] VITALS: BP 150/69
[2017-08-23] MEDS: ENOXAPARIN 30MG/0.3ML SYR SUBCUT SCH (18:37)
[2017-08-23 20:00] VITALS: BP 122/69
[2017-08-23] MEDS: FAMOTIDINE 20MG/2ML VIAL IV SCH (21:20)
[2017-08-24 00:05] VITALS: BP 138/75
[2017-08-24 04:00] VITALS: BP 148/90
[2017-08-24] MEDS: CARVEDILOL 3.125 MG TABLET PO SCH ×2 (05:43→18:01)
[2017-08-24] MEDS: TRAMADOL 50MG TABLET PO PRN ×2 (05:50→20:41)
[2017-08-24] MEDS: BLOOD SUGAR DIAGNOSTIC STRIP TEST SCH ×4 (07:31→20:47)
[2017-08-24] MEDS: INSULIN LISPRO 100 UNITS/ML SUBCUT SCH ×4 (07:31→20:47)
[2017-08-24 08:00] VITALS: BP 117/94
[2017-08-24] MEDS: IPRATROPIUM/ALBUTEROL 0.5-3(2.5)MG/3ML NEB HHN SCH ×4 (08:27→21:56)
[2017-08-24] MEDS: FOLIC ACID/VITAMIN B COMP W-C TABLET PO SCH (08:56)
[2017-08-24] MEDS: SEVELAMER CARBONATE 800 MG TABLET PO SCH ×3 (08:56→18:07)
[2017-08-24 12:00] VITALS: BP 159/90
[2017-08-24] MEDS: LEVOFLOXACIN 250MG PREMIX 50 ML IV SCH (13:04)
[2017-08-24 16:00] VITALS: BP 143/77
[2017-08-24] MEDS: PIPERACILLIN/TAZ 2.25G PREMIX 50 ML IV SCH (18:01)
[2017-08-24] MEDS: ENOXAPARIN 30MG/0.3ML SYR SUBCUT SCH (18:02)
[2017-08-24 19:56] VITALS: BP 128/81
[2017-08-24] MEDS: FAMOTIDINE 20MG/2ML VIAL IV SCH (20:38)
[2017-08-25 00:05] VITALS: BP 165/84
[2017-08-25] MEDS: PIPERACILLIN/TAZ 2.25G PREMIX 50 ML IV SCH ×3 (01:50→20:32)
[2017-08-25 04:00] VITALS: BP 169/97
[2017-08-25] MEDS: TRAMADOL 50MG TABLET PO PRN ×2 (05:39→13:44)
[2017-08-25] MEDS: CARVEDILOL 3.125 MG TABLET PO SCH ×2 (05:39→19:00)
[2017-08-25] MEDS: BLOOD SUGAR DIAGNOSTIC STRIP TEST SCH ×4 (07:40→20:29)
[2017-08-25 08:00] VITALS: BP 164/95
[2017-08-25] MEDS: INSULIN LISPRO 100 UNITS/ML SUBCUT SCH ×4 (08:10→20:36)
[2017-08-25 08:13] LABS: BASOPHILS % 1.1 % (0.0-2.0); EOSINOPHILS % 2.8 % (0.0-5.0); HEMATOCRIT. 26.9 % (36.0-48.0); HEMOGLOBIN. 8.3 g/dL (12.0-16.0); LYMPHOCYTES % 15.2 % (20.0-50.0); MEAN CORPUSCULAR HEMOGLOBIN 23.3 pg (28.0-32.0); MEAN CORPUSCULAR VOLUME 75.5 fL (81.0-99.0); MEAN PLATELET VOLUME 7.4 fl (7.4-10.4); MONOCYTES % 7.6 % (2.0-8.0); NEUTROPHILS % 73.3 % (40.0-76.0); PLATELET 299 x1000/uL (130-400); RED BLOOD CELL COUNT 3.56 mill/uL (4.2-5.4); RED CELL DISTRIBUTION WIDTH 26.2 % (11.6-14.6)
[2017-08-25] MEDS: IPRATROPIUM/ALBUTEROL 0.5-3(2.5)MG/3ML NEB HHN SCH ×4 (08:13→21:24)
[2017-08-25] MEDS: FOLIC ACID/VITAMIN B COMP W-C TABLET PO SCH (09:00)
[2017-08-25] MEDS: SEVELAMER CARBONATE 800 MG TABLET PO SCH ×3 (09:58→19:00)
[2017-08-25] MEDS: HYDROCODONE/ACETAMINOPHEN 5/325MG TABLET PO PRN ×2 (09:59→16:55)
[2017-08-25 12:00] VITALS: BP 127/82
[2017-08-25] MEDS: DOCUSATE SODIUM 250MG CAPSULE PO SCH (14:45)
[2017-08-25] MEDS ORDERED: BISACODYL 5MG TABLET PO PRN (14:45)
[2017-08-25 16:00] VITALS: BP 139/76
[2017-08-25] MEDS: DOCUSATE SODIUM 100MG CAPSULE PO PRN ×3 (16:24→16:29)
[2017-08-25] MEDS ORDERED: VANCOMYCIN 750 MG PREMIX 150 ML IV SCH (17:00)
[2017-08-25] MEDS: ENOXAPARIN 30MG/0.3ML SYR SUBCUT SCH (19:00)
[2017-08-25 20:00] VITALS: BP 161/97
[2017-08-25] MEDS: FAMOTIDINE 20MG/2ML VIAL IV SCH (20:39)
[2017-08-25] MEDS: CLONIDINE 0.1MG TABLET PO PRN (21:17)
[2017-08-26] VITALS: BP 140/78
[2017-08-26] MEDS: PIPERACILLIN/TAZ 2.25G PREMIX 50 ML IV SCH ×3 (02:30→18:26)
[2017-08-26 04:00] VITALS: BP 153/85
[2017-08-26] MEDS: BLOOD SUGAR DIAGNOSTIC STRIP TEST SCH ×4 (06:25→21:11)
[2017-08-26] MEDS: CARVEDILOL 3.125 MG TABLET PO SCH ×2 (06:27→18:29)
[2017-08-26] MEDS: INSULIN LISPRO 100 UNITS/ML SUBCUT SCH ×4 (06:41→21:00)
[2017-08-26 08:00] VITALS: BP 166/77
[2017-08-26] MEDS: IPRATROPIUM/ALBUTEROL 0.5-3(2.5)MG/3ML NEB HHN SCH ×4 (08:21→21:23)
[2017-08-26 08:30] LABS: EOSINOPHILS % 3.2 % (0.0-5.0); HEMATOCRIT. 24.7 % (36.0-48.0); HEMOGLOBIN. 7.7 g/dL (12.0-16.0); LYMPHOCYTES % 16.2 % (20.0-50.0); MEAN CORPUSCULAR HEMOGLOBIN 23.9 pg (28.0-32.0); MEAN CORPUSCULAR VOLUME 77.2 fL (81.0-99.0); MEAN PLATELET VOLUME 7.5 fl (7.4-10.4); MONOCYTES % 7.8 % (2.0-8.0); NEUTROPHILS % 71.8 % (40.0-76.0); PLATELET 262 x1000/uL (130-400); RED BLOOD CELL COUNT 3.21 mill/uL (4.2-5.4); RED CELL DISTRIBUTION WIDTH 25.8 % (11.6-14.6)
[2017-08-26] MEDS: SEVELAMER CARBONATE 800 MG TABLET PO SCH ×3 (08:33→18:32)
[2017-08-26] MEDS: FOLIC ACID/VITAMIN B COMP W-C TABLET PO SCH (08:33)
[2017-08-26] MEDS: DOCUSATE SODIUM 250MG CAPSULE PO SCH (08:33)
[2017-08-26 12:00] VITALS: BP 116/62
[2017-08-26] MEDS ORDERED: LEVOFLOXACIN 250MG TABLET PO SCH (13:00)
[2017-08-26] MEDS: HYDROCODONE/ACETAMINOPHEN 5/325MG TABLET PO PRN ×2 (13:43→19:04)
[2017-08-26 16:00] VITALS: BP 152/87
[2017-08-26] MEDS: ENOXAPARIN 30MG/0.3ML SYR SUBCUT SCH (18:32)
[2017-08-26 20:00] VITALS: BP 143/50
[2017-08-26] MEDS: EPOETIN ALFA 10000UNITS/ML VIAL SUBCUT SCH (22:16)
[2017-08-26] MEDS: FAMOTIDINE 20MG/2ML VIAL IV SCH (22:16)
[2017-08-27] VITALS: BP 153/90
[2017-08-27] MEDS: PIPERACILLIN/TAZ 2.25G PREMIX 50 ML IV SCH ×3 (01:10→17:25)
[2017-08-27 04:00] VITALS: BP 173/60
[2017-08-27] MEDS: IPRATROPIUM/ALBUTEROL 0.5-3(2.5)MG/3ML NEB HHN SCH ×6 (04:00→21:07)
[2017-08-27] MEDS: CARVEDILOL 3.125 MG TABLET PO SCH ×2 (05:34→17:24)
[2017-08-27] MEDS: MORPHINE SULFATE 4 MG/ML CPJ (NOT FOR IM USE) IV PRN (06:44)
[2017-08-27 08:00] VITALS: BP 167/83
[2017-08-27] MEDS: BLOOD SUGAR DIAGNOSTIC STRIP TEST SCH ×4 (08:05→20:52)
[2017-08-27] MEDS: SEVELAMER CARBONATE 800 MG TABLET PO SCH ×3 (08:05→17:39)
[2017-08-27] MEDS: FOLIC ACID/VITAMIN B COMP W-C TABLET PO SCH (08:05)
[2017-08-27] MEDS: DOCUSATE SODIUM 100MG CAPSULE PO PRN (08:05)
[2017-08-27] MEDS: INSULIN LISPRO 100 UNITS/ML SUBCUT SCH ×4 (08:10→20:52)
[2017-08-27] MEDS: DOCUSATE SODIUM 250MG CAPSULE PO SCH (08:20)
[2017-08-27 10:17] LABS: EOSINOPHILS % 0.8 % (0.0-5.0); HEMATOCRIT. 25.1 % (36.0-48.0); HEMOGLOBIN. 7.7 g/dL (12.0-16.0); LYMPHOCYTES % 11.5 % (20.0-50.0); MEAN CORPUSCULAR HEMOGLOBIN 23.1 pg (28.0-32.0); MEAN CORPUSCULAR VOLUME 75.3 fL (81.0-99.0); MONOCYTES % 5.5 % (2.0-8.0); NEUTROPHILS % 81.2 % (40.0-76.0); PLATELET 297 x1000/uL (130-400); RED BLOOD CELL COUNT 3.34 mill/uL (4.2-5.4); RED CELL DISTRIBUTION WIDTH 25.1 % (11.6-14.6)
[2017-08-27 12:00] VITALS: BP 149/81
[2017-08-27 16:00] VITALS: BP 126/80
[2017-08-27] MEDS: ENOXAPARIN 30MG/0.3ML SYR SUBCUT SCH (17:40)
[2017-08-27 20:00] VITALS: BP 157/84
[2017-08-27] MEDS: FAMOTIDINE 20MG/2ML VIAL IV SCH (20:47)
[2017-08-28] VITALS (7 sets, daily range): BP systolic 99–175; BP diastolic 66–95
[2017-08-28] MEDS: PIPERACILLIN/TAZ 2.25G PREMIX 50 ML IV SCH ×3 (02:40→17:29)
[2017-08-28] MEDS: IPRATROPIUM/ALBUTEROL 0.5-3(2.5)MG/3ML NEB HHN SCH ×6 (04:00→20:45)
[2017-08-28 06:34] LABS: EOSINOPHILS % 1.4 % (0.0-5.0); HEMATOCRIT. 25.2 % (36.0-48.0); HEMOGLOBIN. 7.8 g/dL (12.0-16.0); LYMPHOCYTES % 15.1 % (20.0-50.0); MEAN CORPUSCULAR HEMOGLOBIN 23.2 pg (28.0-32.0); MEAN CORPUSCULAR VOLUME 74.9 fL (81.0-99.0); MEAN PLATELET VOLUME 8.2 fl (7.4-10.4); MONOCYTES % 8.8 % (2.0-8.0); NEUTROPHILS % 73.7 % (40.0-76.0); PLATELET 297 x1000/uL (130-400); RED BLOOD CELL COUNT 3.37 mill/uL (4.2-5.4); RED CELL DISTRIBUTION WIDTH 24.8 % (11.6-14.6)
[2017-08-28] MEDS: BLOOD SUGAR DIAGNOSTIC STRIP TEST SCH ×4 (06:57→21:00)
[2017-08-28] MEDS: CARVEDILOL 3.125 MG TABLET PO SCH ×2 (06:57→17:28)
[2017-08-28] MEDS: DOCUSATE SODIUM 250MG CAPSULE PO SCH (08:04)
[2017-08-28] MEDS: INSULIN LISPRO 100 UNITS/ML SUBCUT SCH ×4 (08:04→21:00)
[2017-08-28] MEDS: SEVELAMER CARBONATE 800 MG TABLET PO SCH ×3 (09:24→18:31)
[2017-08-28] MEDS: FOLIC ACID/VITAMIN B COMP W-C TABLET PO SCH (09:24)
[2017-08-28] MEDS: MORPHINE SULFATE 4 MG/ML CPJ (NOT FOR IM USE) IV PRN (13:42)
[2017-08-28] MEDS: ENOXAPARIN 30MG/0.3ML SYR SUBCUT SCH (17:29)
[2017-08-28] MEDS: FAMOTIDINE 20MG/2ML VIAL IV SCH (22:21)
[2017-08-29] VITALS (8 sets, daily range): BP systolic 107–199; BP diastolic 69–94
[2017-08-29] MEDS: IPRATROPIUM/ALBUTEROL 0.5-3(2.5)MG/3ML NEB HHN SCH ×5 (00:42→16:43)
[2017-08-29] MEDS: PIPERACILLIN/TAZ 2.25G PREMIX 50 ML IV SCH ×3 (02:25→18:14)
[2017-08-29] MEDS: CARVEDILOL 3.125 MG TABLET PO SCH ×2 (06:00→18:15)
[2017-08-29] MEDS: BLOOD SUGAR DIAGNOSTIC STRIP TEST SCH ×4 (06:30→20:55)
[2017-08-29] MEDS: INSULIN LISPRO 100 UNITS/ML SUBCUT SCH ×4 (08:10→20:49)
[2017-08-29] MEDS: DOCUSATE SODIUM 250MG CAPSULE PO SCH (08:23)
[2017-08-29] MEDS: CLONIDINE 0.1MG TABLET PO PRN (08:41)
[2017-08-29] MEDS: FOLIC ACID/VITAMIN B COMP W-C TABLET PO SCH (08:41)
[2017-08-29] MEDS: SEVELAMER CARBONATE 800 MG TABLET PO SCH ×3 (08:41→18:14)
[2017-08-29] MEDS: ENOXAPARIN 30MG/0.3ML SYR SUBCUT SCH (18:19)
[2017-08-29] MEDS: EPOETIN ALFA 10000UNITS/ML VIAL SUBCUT SCH (20:54)
[2017-08-29] MEDS: FAMOTIDINE 20MG/2ML VIAL IV SCH (20:54)
== END 2017-08-29 21:15 | DRG 239 ==
LOC: ER 07:31 → 7WST 09:50 → EDBEDREQ 09:54 → SUPCPDRO 10:41 → ENRESERV 16:15
PROVIDERS: ADMIT Internal Medicine; ATTEND Internal Medicine
PROC: 0Y6N0Z0 Detachment at Left Foot, Complete, Open Approach (ICD-10-PCS; principal; 2017-08-23)
DX: E11.52 Type 2 diabetes mellitus with diabetic peripheral angiopathy with gangrene (principal); E43 Unspecified severe protein-calorie malnutrition; G93.41 Metabolic encephalopathy; J96.10 Chronic respiratory failure, unspecified whether with hypoxia or hypercapnia; J84.9 Interstitial pulmonary disease, unspecified; E11.22 Type 2 diabetes mellitus with diabetic chronic kidney disease; D68.59 Other primary thrombophilia; N18.6 End stage renal disease; I12.0 Hypertensive chronic kidney disease with stage 5 chronic kidney disease or end stage renal disease; L03.116 Cellulitis of left lower limb; E87.1 Hypo-osmolality and hyponatremia; I47.1 Supraventricular tachycardia; Z68.1 Body mass index [BMI] 19.9 or less, adult; I27.20 Pulmonary hypertension, unspecified; E83.52 Hypercalcemia; J44.9 Chronic obstructive pulmonary disease, unspecified; E87.5 Hyperkalemia; D63.8 Anemia in other chronic diseases classified elsewhere; E03.9 Hypothyroidism, unspecified; E05.20 Thyrotoxicosis with toxic multinodular goiter without thyrotoxic crisis or storm; E11.621 Type 2 diabetes mellitus with foot ulcer; I25.10 Atherosclerotic heart disease of native coronary artery without angina pectoris; I48.2 Chronic atrial fibrillation; K21.9 Gastro-esophageal reflux disease without esophagitis; L97.519 Non-pressure chronic ulcer of other part of right foot with unspecified severity; M48.02 Spinal stenosis, cervical region; R56.9 Unspecified convulsions; Z79.02 Long term (current) use of antithrombotics/antiplatelets; Z82.49 Family history of ischemic heart disease and other diseases of the circulatory system; Z86.73 Personal history of transient ischemic attack (TIA), and cerebral infarction without residual deficits; Z87.891 Personal history of nicotine dependence; Z79.82 Long term (current) use of aspirin; Z79.2 Long term (current) use of antibiotics; Z99.2 Dependence on renal dialysis; Z79.899 Other long term (current) drug therapy; Z89.432 Acquired absence of left foot; Z89.519 Acquired absence of unspecified leg below knee; Z95.5 Presence of coronary angioplasty implant and graft; Z98.1 Arthrodesis status; Z99.81 Dependence on supplemental oxygen
CPT/HCPCS: 36415; 70450; 71045; 73630; 80048; 80053; 80061; 80202; 82140; 82550; 82553; 82962; 83036; 84443; 84484; 85025; 85610; 85651; 86140; 86850; 86900; 87040; 88305; 88311; 93005; 93970; 94640; 96365; 97110; 97162; 97530; 99285; A4216; A6261; C1893; J0885; J1200; J1580; J1650; J1815; J1956; J2270; J2543; J2704; J2920; J3370; J3490; J7030; J7040; J7050; J7620

== ENCOUNTER 2017-10-04 16:45 | Inpatient (IN) | payer MEDICARE, MEDICAID ==
[~2017-10-04] VITALS: Ht 162.6 cm; Wt 56.7 kg
[2017-10-04 17:30] VITALS: BP 120/72
[2017-10-04] MEDS ORDERED: LORAZEPAM 2MG/ML CPJ IV PRN (18:30)
[2017-10-04] MEDS: IPRATROPIUM/ALBUTEROL 0.5-3(2.5)MG/3ML NEB HHN SCH (18:30)
[2017-10-04] MEDS ORDERED: ONDANSETRON HCL 4MG/2ML VIAL IV PRN (18:30)
[2017-10-04] MEDS ORDERED: CLONIDINE 0.1MG TABLET PO PRN (18:30)
[2017-10-04] MEDS ORDERED: TRAMADOL 50MG TABLET PO PRN (18:30)
[2017-10-04] MEDS ORDERED: NON FORMULARY PATIENT HOME MED EA XX SCH (18:30)
[2017-10-04] MEDS ORDERED: HYDROCODONE/ACETAMINOPHEN 5/325MG TABLET PO PRN (18:30)
[2017-10-04] MEDS ORDERED: IPRATROPIUM/ALBUTEROL 0.5-3(2.5)MG/3ML NEB INH PRN (18:30)
[2017-10-04] MEDS ORDERED: ACETAMINOPHEN 325MG TABLET PO PRN (18:30)
[2017-10-04] MEDS ORDERED: MORPHINE SULFATE 2 MG/ML CPJ (NOT FOR IM USE) IV PRN (18:30)
[2017-10-04 19:31] LABS: BASOPHILS % 0.7 % (0.0-2.0); EOSINOPHILS % 0.9 % (0.0-5.0); HEMATOCRIT. 28.4 % (36.0-48.0); HEMOGLOBIN. 8.5 g/dL (12.0-16.0); LYMPHOCYTES % 14.9 % (20.0-50.0); MEAN CORPUSCULAR HEMOGLOBIN 21.5 pg (28.0-32.0); MEAN CORPUSCULAR VOLUME 72.2 fL (81.0-99.0); MEAN PLATELET VOLUME 7.9 fl (7.4-10.4); MONOCYTES % 7.7 % (2.0-8.0); NEUTROPHILS % 75.8 % (40.0-76.0); PLATELET 271 x1000/uL (130-400); RED BLOOD CELL COUNT 3.94 mill/uL (4.2-5.4); RED CELL DISTRIBUTION WIDTH 23.5 % (11.6-14.6)
[2017-10-04 19:45] LABS: PLATELET ESTIMATE NORMAL
[2017-10-04] MEDS: HYDROCODONE/ACETAMINOPHEN 10/325MG TABLET PO PRN (20:58)
[2017-10-05] VITALS (8 sets, daily range): BP systolic 110–154; BP diastolic 59–81
[2017-10-05] MEDS: IPRATROPIUM/ALBUTEROL 0.5-3(2.5)MG/3ML NEB HHN SCH ×3 (02:13→20:59)
[2017-10-05] MEDS ORDERED: MORPHINE SULFATE 4 MG/ML CPJ (NOT FOR IM USE) IV PRN ×2 (02:28→13:45)
[2017-10-05] MEDS: SEVELAMER CARBONATE 800 MG TABLET PO SCH ×3 (07:50→17:19)
[2017-10-05] MEDS: CARVEDILOL 3.125 MG TABLET PO SCH (09:00)
[2017-10-05] MEDS: FOLIC ACID/VITAMIN B COMP W-C TABLET PO SCH (09:00)
[2017-10-05] MEDS: ASPIRIN 81MG EC TABLET PO SCH (09:00)
[2017-10-05] MEDS: GABAPENTIN 300MG CAPSULE PO SCH ×3 (09:00→17:19)
[2017-10-05] MEDS: CINACALCET HCL 90MG TABLET PO SCH (09:00)
[2017-10-05] MEDS: CLOPIDOGREL 75MG TABLET PO SCH (09:00)
[2017-10-05] MEDS: CLONIDINE 0.1MG TABLET PO SCH (09:00)
[2017-10-05 09:44] LABS: BASOPHILS % 1.5 % (0.0-2.0); EOSINOPHILS % 1.8 % (0.0-5.0); HEMATOCRIT. 31.1 % (36.0-48.0); HEMOGLOBIN. 9.1 g/dL (12.0-16.0); MEAN CORPUSCULAR HEMOGLOBIN 21.3 pg (28.0-32.0); MEAN CORPUSCULAR VOLUME 72.7 fL (81.0-99.0); MEAN PLATELET VOLUME 7.5 fl (7.4-10.4); MONOCYTES % 7.9 % (2.0-8.0); NEUTROPHILS % 67.8 % (40.0-76.0); PLATELET 263 x1000/uL (130-400); RED BLOOD CELL COUNT 4.27 mill/uL (4.2-5.4); RED CELL DISTRIBUTION WIDTH 23.4 % (11.6-14.6)
[2017-10-05] MEDS ORDERED: GELATIN SPONGE,ABSORBABLE SZ 100 ONE (09:44)
[2017-10-05] MEDS ORDERED: BACITRACIN ZINC 15GM TUBE TOP ONE (09:45)
[2017-10-05] MEDS ORDERED: HEPARIN SODIUM 1,000 UNIT/1ML VIAL IV ONE (09:45)
[2017-10-05] MEDS ORDERED: THROMBIN (BOVINE) 5000 UNITS/VIAL TOP ONE (09:45)
[2017-10-05] MEDS ORDERED: NORMAL SALINE 0.9% 10 ML SYR ONE (09:45)
[2017-10-05] MEDS ORDERED: BUPIVACAINE HCL/PF 0.5% (5MG/ML) 10ML ONE (09:45)
[2017-10-05] MEDS ORDERED: BACITRACIN 50,000 UNITS/VIAL ONE (09:46)
[2017-10-05] MEDS ORDERED: LIDOCAINE HCL 1% 20ML VIAL (Pyxis) INJ ONE (09:46)
[2017-10-05] MEDS ORDERED: EPHEDRINE SULFATE 50MG/ML VIAL ONE ×2 (11:52→12:16)
[2017-10-05] MEDS ORDERED: CEFAZOLIN SODIUM 1000MG/VIAL ONE (11:52)
[2017-10-05] MEDS ORDERED: ONDANSETRON HCL 4MG/2ML VIAL ONE (11:53)
[2017-10-05] MEDS ORDERED: HEPARIN 1000 UNITS/ML 10ML ONE (11:53)
[2017-10-05] MEDS ORDERED: PHENYLEPHRINE HCL 10 MG/ML 1ML (IV VIAL) IV ONE (11:53)
[2017-10-05] MEDS: MORPHINE SULFATE 4 MG/ML CPJ (NOT FOR IM USE) IV PRN ×2 (14:30→17:45)
[2017-10-05] MEDS: HYDROCODONE/ACETAMINOPHEN 10/325MG TABLET PO PRN (20:20)
[2017-10-05 20:36] LABS: HEMOGLOBIN 9.2 g/dL (12.0-16.0)
[2017-10-06] VITALS: BP 138/78
[2017-10-06] MEDS: IPRATROPIUM/ALBUTEROL 0.5-3(2.5)MG/3ML NEB HHN SCH ×4 (02:05→21:15)
[2017-10-06 04:00] VITALS: BP 136/67
[2017-10-06] MEDS: HYDROCODONE/ACETAMINOPHEN 10/325MG TABLET PO PRN ×2 (06:06→15:56)
[2017-10-06 07:22] LABS: BASOPHILS % 0.7 % (0.0-2.0); EOSINOPHILS % 2.3 % (0.0-5.0); HEMATOCRIT. 32.3 % (36.0-48.0); HEMOGLOBIN. 9.5 g/dL (12.0-16.0); LYMPHOCYTES % 19.3 % (20.0-50.0); MEAN CORPUSCULAR HEMOGLOBIN 22.1 pg (28.0-32.0); MEAN CORPUSCULAR VOLUME 75.3 fL (81.0-99.0); MEAN PLATELET VOLUME 8.5 fl (7.4-10.4); MONOCYTES % 8.5 % (2.0-8.0); NEUTROPHILS % 69.2 % (40.0-76.0); PLATELET 271 x1000/uL (130-400); RED BLOOD CELL COUNT 4.29 mill/uL (4.2-5.4)
[2017-10-06 08:00] VITALS: BP 127/72
[2017-10-06] MEDS: CLOPIDOGREL 75MG TABLET PO SCH (09:45)
[2017-10-06] MEDS: SEVELAMER CARBONATE 800 MG TABLET PO SCH ×3 (09:45→17:23)
[2017-10-06] MEDS: ASPIRIN 81MG EC TABLET PO SCH (09:45)
[2017-10-06] MEDS: GABAPENTIN 300MG CAPSULE PO SCH ×3 (09:45→17:23)
[2017-10-06] MEDS: CINACALCET HCL 90MG TABLET PO SCH (09:45)
[2017-10-06] MEDS: FOLIC ACID/VITAMIN B COMP W-C TABLET PO SCH (09:45)
[2017-10-06] MEDS: CLONIDINE 0.1MG TABLET PO SCH (09:46)
[2017-10-06] MEDS: CARVEDILOL 3.125 MG TABLET PO SCH (09:46)
[2017-10-06 10:55] LABS: PLATELET ESTIMATE NORMAL
[2017-10-06 12:00] VITALS: BP 113/75
[2017-10-06 16:00] VITALS: BP 124/71
[2017-10-06 16:43] LABS: CREATINE KINASE MB FRACTION 1.5 ng/mL (0.5-3.6); T4 FREE 1.17 ng/dL (0.76-1.46)
[2017-10-06 20:00] VITALS: BP 130/74
[2017-10-07] VITALS: BP 117/66
[2017-10-07 00:13] LABS: CREATINE KINASE MB FRACTION 1.6 ng/mL (0.5-3.6)
[2017-10-07] MEDS: MORPHINE SULFATE 4 MG/ML CPJ (NOT FOR IM USE) IV PRN (00:13)
[2017-10-07] MEDS: IPRATROPIUM/ALBUTEROL 0.5-3(2.5)MG/3ML NEB HHN SCH (02:18)
[2017-10-07] MEDS: HYDROCODONE/ACETAMINOPHEN 10/325MG TABLET PO PRN ×2 (03:42→10:21)
[2017-10-07 04:00] VITALS: BP 119/70
[2017-10-07 07:18] LABS: CREATINE KINASE MB FRACTION 1.7 ng/mL (0.5-3.6)
[2017-10-07 08:00] VITALS: BP 142/82
[2017-10-07] MEDS: ASPIRIN 81MG EC TABLET PO SCH (08:16)
[2017-10-07] MEDS: FOLIC ACID/VITAMIN B COMP W-C TABLET PO SCH (08:16)
[2017-10-07] MEDS: CARVEDILOL 3.125 MG TABLET PO SCH (08:16)
[2017-10-07] MEDS: CINACALCET HCL 90MG TABLET PO SCH (08:16)
[2017-10-07] MEDS: SEVELAMER CARBONATE 800 MG TABLET PO SCH ×2 (08:16→12:58)
[2017-10-07] MEDS: CLOPIDOGREL 75MG TABLET PO SCH (08:16)
[2017-10-07] MEDS: GABAPENTIN 300MG CAPSULE PO SCH ×2 (08:17→12:58)
[2017-10-07] MEDS: CLONIDINE 0.1MG TABLET PO SCH (08:17)
[2017-10-07 11:45] VITALS: BP 142/82
[2017-10-07 12:00] VITALS: BP 124/76
== END 2017-10-07 14:36 | DRG 564 ==
LOC: 6EST 16:45
PROVIDERS: ADMIT Hospitalist; ATTEND Internal Medicine Nephrology
PROC: 0YJ Anatomical Regions, Lower Extremities, Inspection (ICD-10-PCS; 2017-10-05)
PROC: 30233N1 Transfusion of Nonautologous Red Blood Cells into Peripheral Vein, Percutaneous Approach (ICD-10-PCS; principal; 2017-10-05 15:30)
PROC: 5A1D70Z Performance of Urinary Filtration, Intermittent, Less than 6 Hours Per Day (ICD-10-PCS; 2017-10-06)
DX: T87.81 Dehiscence of amputation stump (principal); N18.6 End stage renal disease; I13.2 Hypertensive heart and chronic kidney disease with heart failure and with stage 5 chronic kidney disease, or end stage renal disease; J96.10 Chronic respiratory failure, unspecified whether with hypoxia or hypercapnia; I27.20 Pulmonary hypertension, unspecified; I48.91 Unspecified atrial fibrillation; E83.52 Hypercalcemia; L97.519 Non-pressure chronic ulcer of other part of right foot with unspecified severity; M48.02 Spinal stenosis, cervical region; G40.909 Epilepsy, unspecified, not intractable, without status epilepticus; N25.81 Secondary hyperparathyroidism of renal origin; I73.9 Peripheral vascular disease, unspecified; D63.8 Anemia in other chronic diseases classified elsewhere; E03.9 Hypothyroidism, unspecified; E78.5 Hyperlipidemia, unspecified; K57.90 Diverticulosis of intestine, part unspecified, without perforation or abscess without bleeding; I50.9 Heart failure, unspecified; I25.10 Atherosclerotic heart disease of native coronary artery without angina pectoris; E05.20 Thyrotoxicosis with toxic multinodular goiter without thyrotoxic crisis or storm; R91.8 Other nonspecific abnormal finding of lung field; J44.9 Chronic obstructive pulmonary disease, unspecified; M79.605 Pain in left leg; Y83.5 Amputation of limb(s) as the cause of abnormal reaction of the patient, or of later complication, without mention of misadventure at the time of the procedure; Y92.89 Other specified places as the place of occurrence of the external cause; Z98.1 Arthrodesis status; Z95.5 Presence of coronary angioplasty implant and graft; Z99.2 Dependence on renal dialysis; Z89.432 Acquired absence of left foot; I25.2 Old myocardial infarction; Z86.73 Personal history of transient ischemic attack (TIA), and cerebral infarction without residual deficits; Z99.81 Dependence on supplemental oxygen; Z87.891 Personal history of nicotine dependence
CPT/HCPCS: 36415; 80048; 80061; 82550; 82553; 83036; 83880; 84439; 84443; 84484; 85014; 85018; 85025; 85379; 86850; 86900; 86920; 93005; 93306; 93970; 94640; A4216; C1893; J0690; J1644; J2270; J2370; J2405; J3490; J7030; J7040; J7620; P9016

== ENCOUNTER 2018-01-15 09:44 | Inpatient (IN) | payer MEDICARE, MEDICAID ==
[~2018-01-15] VITALS: Ht 154.9 cm; Wt 52.4 kg
[2018-01-15 10:43] LABS: HEMATOCRIT. 38.9 % (36.0-48.0); MEAN CORPUSCULAR HEMOGLOBIN 20.3 pg (28.0-32.0); MEAN CORPUSCULAR VOLUME 71.5 fL (81.0-99.0); MEAN PLATELET VOLUME 8.8 fl (7.4-10.4); PLATELET 170 x1000/uL (130-400); RED BLOOD CELL COUNT 5.44 mill/uL (4.2-5.4); RED CELL DISTRIBUTION WIDTH 26.7 % (11.6-14.6)
[2018-01-15 10:46] LABS: INR 1.1; PROTHROMBIN TIME 11.4 sec (9.1-11.1)
[2018-01-15 10:47] LABS: CHLORIDE 97 mEq/L (98-107)
[2018-01-15 12:35] LABS: NUCLEATED RED BLOOD CELLS 1 /100 WBC; PLATELET ESTIMATE NORMAL
[2018-01-15] MEDS ORDERED: IPRATROPIUM/ALBUTEROL 0.5-3(2.5)MG/3ML NEB HHN PRN (13:45)
[2018-01-15 14:05] VITALS: BP 112/72
[2018-01-15 14:40] VITALS: BP 112/72
[2018-01-15 16:00] VITALS: BP 112/62
[2018-01-15] MEDS ORDERED: IPRATROPIUM/ALBUTEROL 0.5-3(2.5)MG/3ML NEB INH PRN (16:45)
[2018-01-15] MEDS ORDERED: MAGNESIUM/ALUMINUM HYDROXIDE/SIMETHICONE 30ML UDC PO PRN (16:45)
[2018-01-15] MEDS ORDERED: ACETAMINOPHEN 325MG TABLET PO PRN (16:45)
[2018-01-15] MEDS ORDERED: ONDANSETRON HCL 4MG/2ML INJ IV PRN (16:45)
[2018-01-15] MEDS ORDERED: GUAIFENESIN 200MG/10ML SUGAR FREE UDC PO PRN (16:45)
[2018-01-15] MEDS ORDERED: DIPHENHYDRAMINE 50MG/ML VIAL IV PRN (16:45)
[2018-01-15] MEDS: ENOXAPARIN 30MG/0.3ML SYR SUBCUT SCH (17:15)
[2018-01-15] MEDS ORDERED: TRAMADOL 50MG TABLET PO PRN (17:45)
[2018-01-15] MEDS ORDERED: IPRATROPIUM/ALBUTEROL 0.5-3(2.5)MG/3ML NEB HHN SCH (18:00)
[2018-01-15 20:00] VITALS: BP 91/54
[2018-01-15] MEDS: IPRATROPIUM/ALBUTEROL 0.5-3(2.5)MG/3ML NEB HHN SCH (21:25)
[2018-01-15] MEDS: BUDESONIDE 0.5MG/2ML NEB HHN SCH (21:25)
[2018-01-15] MEDS: SODIUM CHLORIDE 0.9% INJ 3ML FLUSH IVF SCH (22:37)
[2018-01-16 00:48] VITALS: BP 100/62
[2018-01-16] MEDS: IPRATROPIUM/ALBUTEROL 0.5-3(2.5)MG/3ML NEB HHN SCH ×5 (01:22→20:46)
[2018-01-16 04:00] VITALS: BP 112/68
[2018-01-16] MEDS: SODIUM CHLORIDE 0.9% INJ 3ML FLUSH IVF SCH ×3 (05:30→21:21)
[2018-01-16 05:42] LABS: BASOPHILS % 0.8 % (0.0-2.0); EOSINOPHILS % 2.4 % (0.0-5.0); HEMOGLOBIN. 10.5 g/dL (12.0-16.0); LYMPHOCYTES % 17.4 % (20.0-50.0); MEAN CORPUSCULAR HEMOGLOBIN 20.4 pg (28.0-32.0); MEAN CORPUSCULAR VOLUME 71.9 fL (81.0-99.0); MONOCYTES % 10.3 % (2.0-8.0); NEUTROPHILS % 69.1 % (40.0-76.0); PLATELET 135 x1000/uL (130-400); RED BLOOD CELL COUNT 5.14 mill/uL (4.2-5.4)
[2018-01-16 06:56] LABS: PHOSPHORUS 8.8 mg/dL (2.5-4.9)
[2018-01-16 08:00] VITALS: BP 111/75
[2018-01-16] MEDS: PANTOPRAZOLE 40MG DR TABLET PO SCH (08:56)
[2018-01-16] MEDS: BUDESONIDE 0.5MG/2ML NEB HHN SCH ×2 (10:21→20:46)
[2018-01-16 12:00] VITALS: BP 112/68
[2018-01-16 16:00] VITALS: BP 125/71
[2018-01-16] MEDS: ENOXAPARIN 30MG/0.3ML SYR SUBCUT SCH (18:04)
[2018-01-16 20:00] VITALS: BP 124/60
[2018-01-17 00:05] VITALS: BP 112/67
[2018-01-17] MEDS: IPRATROPIUM/ALBUTEROL 0.5-3(2.5)MG/3ML NEB HHN SCH ×6 (00:41→20:34)
[2018-01-17 04:00] VITALS: BP 132/75
[2018-01-17] MEDS: SODIUM CHLORIDE 0.9% INJ 3ML FLUSH IVF SCH ×3 (05:27→22:10)
[2018-01-17 08:00] VITALS: BP 130/82
[2018-01-17] MEDS: PANTOPRAZOLE 40MG DR TABLET PO SCH (09:01)
[2018-01-17] MEDS: BUDESONIDE 0.5MG/2ML NEB HHN SCH ×2 (09:35→20:35)
[2018-01-17 12:00] VITALS: BP 160/92
[2018-01-17 16:00] VITALS: BP 143/69
[2018-01-17] MEDS: ENOXAPARIN 30MG/0.3ML SYR SUBCUT SCH (17:15)
[2018-01-17 20:00] VITALS: BP 128/79
[2018-01-18] VITALS: BP 153/83
[2018-01-18] MEDS: IPRATROPIUM/ALBUTEROL 0.5-3(2.5)MG/3ML NEB HHN SCH ×5 (00:44→17:14)
[2018-01-18 04:00] VITALS: BP 162/80
[2018-01-18] MEDS: CLONIDINE 0.1MG TABLET PO PRN ×2 (05:32→16:33)
[2018-01-18] MEDS: SODIUM CHLORIDE 0.9% INJ 3ML FLUSH IVF SCH ×2 (05:33→12:57)
[2018-01-18 06:09] LABS: BASOPHILS % 0.7 % (0.0-2.0); EOSINOPHILS % 2.4 % (0.0-5.0); HEMATOCRIT. 36.2 % (36.0-48.0); HEMOGLOBIN. 10.5 g/dL (12.0-16.0); MEAN CORPUSCULAR HEMOGLOBIN 20.3 pg (28.0-32.0); MEAN CORPUSCULAR VOLUME 70.2 fL (81.0-99.0); MEAN PLATELET VOLUME 8.8 fl (7.4-10.4); MONOCYTES % 10.2 % (2.0-8.0); NEUTROPHILS % 76.7 % (40.0-76.0); PLATELET 120 x1000/uL (130-400); RED BLOOD CELL COUNT 5.15 mill/uL (4.2-5.4); RED CELL DISTRIBUTION WIDTH 26.3 % (11.6-14.6)
[2018-01-18 08:00] VITALS: BP 153/88
[2018-01-18] MEDS: BUDESONIDE 0.5MG/2ML NEB HHN SCH (08:06)
[2018-01-18] MEDS ORDERED: FAMOTIDINE 20MG TABLET PO SCH (09:00)
[2018-01-18] MEDS ORDERED: PREDNISONE 20MG TABLET PO SCH (10:45)
[2018-01-18 10:50] LABS: BG BASE EXCESS -0.2 mmol/L (-2.0-2.0); BG CARBOXYHEMOGLOBIN 1.5 % (0.5-1.5); BG DEOXYHEMOGLOBIN 7.1 % (0.0-5.0); BG HCO3 ACT 26.7 mmol/L (22.0-26.0); BG METHEMOGLOBIN 0.2 % (0.0-1.5); BG OXYGEN SATURATION 92.8 % (92.0-98.5); BG OXYHEMOGLOBIN 91.2 % (94.0-97.0); BG PCO2 54.7 mmHg (35.0-45.0); BG PH 7.307 (7.350-7.450); BG PO2 74.9 mmHg (75.0-100.0); BG SAMPLE SITE RIGHT BRACHIAL; BG TOTAL HEMOGLOBIN 11.1 g/dL (12.0-18.0); BG VENT MODE NASAL CANNULA
[2018-01-18 12:00] VITALS: BP 146/84
[2018-01-18] MEDS ORDERED: SEVELAMER CARBONATE 800 MG TABLET PO SCH (13:10)
[2018-01-18 13:30] VITALS: BP 145/81
[2018-01-18 16:00] VITALS: BP 161/92
[2018-01-18] MEDS: ENOXAPARIN 30MG/0.3ML SYR SUBCUT SCH (16:32)
[2018-01-19] MEDS ORDERED: PREDNISONE 20MG TABLET PO SCH (09:00)
== END 2018-01-18 18:53 | DRG 314 ==
LOC: ER 09:50 → 7WST 11:57 → EDBEDREQTM 11:58 → EDBEDREQ 11:58 → ENRESERV 12:43
PROVIDERS: ADMIT Internal Medicine; ATTEND Internal Medicine
PROC: 5A1D70Z Performance of Urinary Filtration, Intermittent, Less than 6 Hours Per Day (ICD-10-PCS; principal; 2018-01-15)
PROC: 5A1D70Z Performance of Urinary Filtration, Intermittent, Less than 6 Hours Per Day (ICD-10-PCS; 2018-01-16)
PROC: 5A1D70Z Performance of Urinary Filtration, Intermittent, Less than 6 Hours Per Day (ICD-10-PCS; 2018-01-17)
DX: I95.9 Hypotension, unspecified (principal); J96.20 Acute and chronic respiratory failure, unspecified whether with hypoxia or hypercapnia; N18.6 End stage renal disease; E44.1 Mild protein-calorie malnutrition; R18.8 Other ascites; I13.2 Hypertensive heart and chronic kidney disease with heart failure and with stage 5 chronic kidney disease, or end stage renal disease; G90.8 Other disorders of autonomic nervous system; I73.9 Peripheral vascular disease, unspecified; K57.90 Diverticulosis of intestine, part unspecified, without perforation or abscess without bleeding; D63.8 Anemia in other chronic diseases classified elsewhere; E03.9 Hypothyroidism, unspecified; K21.9 Gastro-esophageal reflux disease without esophagitis; E05.20 Thyrotoxicosis with toxic multinodular goiter without thyrotoxic crisis or storm; G40.909 Epilepsy, unspecified, not intractable, without status epilepticus; H10.9 Unspecified conjunctivitis; I25.10 Atherosclerotic heart disease of native coronary artery without angina pectoris; I27.20 Pulmonary hypertension, unspecified; I48.91 Unspecified atrial fibrillation; I50.9 Heart failure, unspecified; J44.9 Chronic obstructive pulmonary disease, unspecified; Z86.718 Personal history of other venous thrombosis and embolism; Z86.73 Personal history of transient ischemic attack (TIA), and cerebral infarction without residual deficits; Z87.891 Personal history of nicotine dependence; I25.2 Old myocardial infarction; Z89.432 Acquired absence of left foot; Z95.5 Presence of coronary angioplasty implant and graft; Z99.2 Dependence on renal dialysis; Z95.820 Peripheral vascular angioplasty status with implants and grafts; Z98.1 Arthrodesis status; Z99.81 Dependence on supplemental oxygen; Z68.21 Body mass index [BMI] 21.0-21.9, adult; Z79.82 Long term (current) use of aspirin; Z79.899 Other long term (current) drug therapy
CPT/HCPCS: 36415; 36600; 70450; 71045; 74176; 80048; 80053; 82375; 82805; 82962; 83605; 83690; 83735; 84100; 84484; 85025; 85610; 87040; 93005; 94640; 97110; 97162; 97530; 99285; J1650; J7512; J7620; J7626

== ENCOUNTER 2018-02-15 10:50 | Inpatient (IN) | payer MEDICARE, MEDICAID ==
[~2018-02-15] VITALS: Ht 162.6 cm; Wt 54.9 kg
[~2018-02-15 10:50] MED LIST changes: +ACET-2853 PO; -AMBR10TA3 PO; -ASPI-1159 PO; +ASPI-986 PO; -CINA30 PO; +CLON-457 PO; -CLON0.1T PO; -COR3 PO; +DEXTL MT; +DOCU-150 PO; -GABA-531 PO; +IPRA3AMP9 HHN; +MAG30ORA PO; +NA P230E RC; -NEPVIT PO; +NITR1PAT64 TD; -SEVE800T8 PO; -TRAM50TA3 PO
[2018-02-15 12:04] LABS: BASOPHILS % 1.6 % (0.0-2.0); CHLORIDE 102 mEq/L (98-107); EOSINOPHILS % 5.8 % (0.0-5.0); HEMATOCRIT. 36.6 % (36.0-48.0); HEMOGLOBIN. 10.6 g/dL (12.0-16.0); LYMPHOCYTES % 19.6 % (20.0-50.0); MEAN CORPUSCULAR HEMOGLOBIN 21.1 pg (28.0-32.0); MEAN PLATELET VOLUME 8.6 fl (7.4-10.4); MONOCYTES % 11.9 % (2.0-8.0); NEUTROPHILS % 61.1 % (40.0-76.0); PLATELET 270 x1000/uL (130-400); RED BLOOD CELL COUNT 5.01 mill/uL (4.2-5.4); RED CELL DISTRIBUTION WIDTH 27.8 % (11.6-14.6)
[2018-02-15 12:19] LABS: PLATELET ESTIMATE NORMAL
[2018-02-15] MEDS ORDERED: IPRATROPIUM/ALBUTEROL 0.5-3(2.5)MG/3ML NEB HHN PRN (13:30)
[2018-02-15 15:50] VITALS: BP 140/62
[2018-02-15 17:08] VITALS: BP 140/62
[2018-02-15] MEDS ORDERED: IPRATROPIUM/ALBUTEROL 0.5-3(2.5)MG/3ML NEB HHN SCH (18:00)
[2018-02-15] MEDS ORDERED: CLONIDINE 0.1MG TABLET PO PRN (18:15)
[2018-02-15] MEDS ORDERED: LORAZEPAM 2MG/ML CPJ IV PRN (18:15)
[2018-02-15] MEDS ORDERED: ACETAMINOPHEN 325MG TABLET PO PRN (18:15)
[2018-02-15] MEDS ORDERED: ONDANSETRON HCL 4MG/2ML INJ IV PRN (18:15)
[2018-02-15] MEDS ORDERED: DOCUSATE SODIUM 100MG CAPSULE PO PRN (18:15)
[2018-02-15] MEDS: BUDESONIDE 0.5MG/2ML NEB HHN SCH (18:53)
[2018-02-15] MEDS: IPRATROPIUM/ALBUTEROL 0.5-3(2.5)MG/3ML NEB INH SCH ×2 (19:04→22:02)
[2018-02-15 20:00] VITALS: BP 116/67
[2018-02-15] MEDS ORDERED: DIPHENHYDRAMINE 25MG CAPSULE PO PRN (22:45)
[2018-02-16] VITALS: BP 118/60
[2018-02-16] MEDS: IPRATROPIUM/ALBUTEROL 0.5-3(2.5)MG/3ML NEB INH SCH ×5 (00:54→20:25)
[2018-02-16] MEDS: BUDESONIDE 0.5MG/2ML NEB HHN SCH ×3 (00:55→20:25)
[2018-02-16 04:00] VITALS: BP 97/67
[2018-02-16 07:01] LABS: BASOPHILS % 2.6 % (0.0-2.0); EOSINOPHILS % 4.2 % (0.0-5.0); HEMATOCRIT. 35.3 % (36.0-48.0); HEMOGLOBIN. 10.6 g/dL (12.0-16.0); LYMPHOCYTES % 17.8 % (20.0-50.0); MEAN CORPUSCULAR HEMOGLOBIN 21.6 pg (28.0-32.0); MEAN CORPUSCULAR VOLUME 72.1 fL (81.0-99.0); MEAN PLATELET VOLUME 8.8 fl (7.4-10.4); MONOCYTES % 11.4 % (2.0-8.0); PLATELET 273 x1000/uL (130-400); RED CELL DISTRIBUTION WIDTH 27.8 % (11.6-14.6)
[2018-02-16 08:00] VITALS: BP_SYST 128; BP_DIAS 46; BP_DIAS 74
[2018-02-16 08:08] LABS: CHLORIDE 98 mEq/L (98-107)
[2018-02-16 12:00] VITALS: BP 107/78
[2018-02-16 16:00] VITALS: BP 101/72
[2018-02-16 20:00] VITALS: BP 112/59
[2018-02-16] MEDS: HYDROCODONE/ACETAMINOPHEN 5/325MG TABLET PO PRN (20:44)
[2018-02-16] MEDS: GUAIFENESIN 200MG/10ML SUGAR FREE UDC PO PRN (22:10)
[2018-02-17] VITALS (13 sets, daily range): BP systolic 109–141; BP diastolic 75–90
[2018-02-17] MEDS: HYDROCODONE/ACETAMINOPHEN 5/325MG TABLET PO PRN (00:58)
[2018-02-17] MEDS: IPRATROPIUM/ALBUTEROL 0.5-3(2.5)MG/3ML NEB INH SCH ×3 (02:09→15:31)
[2018-02-17] MEDS: GUAIFENESIN 200MG/10ML SUGAR FREE UDC PO PRN ×2 (03:44→12:09)
[2018-02-17 07:37] LABS: BASOPHILS % 1.1 % (0.0-2.0); EOSINOPHILS % 2.4 % (0.0-5.0); HEMATOCRIT. 34.9 % (36.0-48.0); HEMOGLOBIN. 10.9 g/dL (12.0-16.0); LYMPHOCYTES % 17.8 % (20.0-50.0); MEAN CORPUSCULAR HEMOGLOBIN 22.4 pg (28.0-32.0); MEAN CORPUSCULAR VOLUME 71.8 fL (81.0-99.0); MEAN PLATELET VOLUME 8.7 fl (7.4-10.4); MONOCYTES % 10.5 % (2.0-8.0); NEUTROPHILS % 68.2 % (40.0-76.0); PLATELET 312 x1000/uL (130-400); RED BLOOD CELL COUNT 4.86 mill/uL (4.2-5.4); RED CELL DISTRIBUTION WIDTH 27.7 % (11.6-14.6)
[2018-02-17] MEDS: ASPIRIN 325MG TABLET PO SCH (08:34)
[2018-02-17] MEDS: CLOPIDOGREL 75MG TABLET PO SCH (08:34)
[2018-02-17] MEDS: BUDESONIDE 0.5MG/2ML NEB HHN SCH ×2 (08:56→21:10)
[2018-02-17] MEDS ORDERED: MEDICATION NOT ON FORMULARY EA (Clopidogrel Bisulfate (Clopidogrel) 75 MG) PO SCH (09:00)
[2018-02-17] MEDS ORDERED: MEDICATION NOT ON FORMULARY EA (Aspirin 325 MG) PO SCH (09:00)
[2018-02-17] MEDS: ENOXAPARIN 60MG/0.6ML SYR SUBCUT SCH (10:09)
[2018-02-17] MEDS: MORPHINE SULFATE 4 MG/ML CPJ (NOT FOR IM USE) IV PRN (13:17)
[2018-02-17] MEDS: NITROGLYCERIN OINT 1GM/INCH UDPKT TD SCH ×2 (14:30→21:56)
[2018-02-17] MEDS: IPRATROPIUM/ALBUTEROL 0.5-3(2.5)MG/3ML NEB INH PRN ×2 (17:53→21:10)
[2018-02-17] MEDS: ATORVASTATIN CALCIUM 40MG TABLET PO SCH (21:55)
[2018-02-18] VITALS (12 sets, daily range): BP systolic 98–144; BP diastolic 58–92
[2018-02-18] MEDS: IPRATROPIUM/ALBUTEROL 0.5-3(2.5)MG/3ML NEB INH PRN (01:48)
[2018-02-18] MEDS: NITROGLYCERIN OINT 1GM/INCH UDPKT TD SCH ×3 (06:18→21:08)
[2018-02-18 06:49] LABS: INR 1.1; PROTHROMBIN TIME 11.4 sec (9.1-11.1)
[2018-02-18] MEDS: CLOPIDOGREL 75MG TABLET PO SCH (08:08)
[2018-02-18] MEDS: ASPIRIN 325MG TABLET PO SCH (08:08)
[2018-02-18] MEDS: ENOXAPARIN 60MG/0.6ML SYR SUBCUT SCH (09:12)
[2018-02-18] MEDS: CARVEDILOL 6.25 MG TABLET PO SCH ×2 (09:12→21:06)
[2018-02-18] MEDS: BUDESONIDE 0.5MG/2ML NEB HHN SCH ×2 (09:23→21:08)
[2018-02-18] MEDS: IPRATROPIUM/ALBUTEROL 0.5-3(2.5)MG/3ML NEB INH SCH ×3 (09:24→21:09)
[2018-02-18] MEDS: MORPHINE SULFATE 4 MG/ML CPJ (NOT FOR IM USE) IV PRN (16:55)
[2018-02-18] MEDS: GUAIFENESIN 200MG/10ML SUGAR FREE UDC PO PRN (21:05)
[2018-02-18] MEDS: ATORVASTATIN CALCIUM 40MG TABLET PO SCH (21:05)
[2018-02-19] VITALS (12 sets, daily range): BP systolic 92–125; BP diastolic 60–86
[2018-02-19] MEDS: IPRATROPIUM/ALBUTEROL 0.5-3(2.5)MG/3ML NEB INH SCH ×3 (00:50→15:09)
[2018-02-19] MEDS: MORPHINE SULFATE 4 MG/ML CPJ (NOT FOR IM USE) IV PRN ×2 (00:50→10:05)
[2018-02-19] MEDS: NITROGLYCERIN OINT 1GM/INCH UDPKT TD SCH ×3 (05:51→22:09)
[2018-02-19 06:45] LABS: BASOPHILS % 1.8 % (0.0-2.0); EOSINOPHILS % 5.4 % (0.0-5.0); HEMATOCRIT. 33.2 % (36.0-48.0); LYMPHOCYTES % 23.1 % (20.0-50.0); MEAN CORPUSCULAR HEMOGLOBIN 21.8 pg (28.0-32.0); MEAN CORPUSCULAR VOLUME 72.4 fL (81.0-99.0); MEAN PLATELET VOLUME 8.6 fl (7.4-10.4); MONOCYTES % 12.5 % (2.0-8.0); NEUTROPHILS % 57.2 % (40.0-76.0); PLATELET 267 x1000/uL (130-400); RED BLOOD CELL COUNT 4.59 mill/uL (4.2-5.4); RED CELL DISTRIBUTION WIDTH 28.1 % (11.6-14.6)
[2018-02-19] MEDS: BUDESONIDE 0.5MG/2ML NEB HHN SCH (08:48)
[2018-02-19] MEDS: CLOPIDOGREL 75MG TABLET PO SCH (09:00)
[2018-02-19] MEDS: ASPIRIN 325MG TABLET PO SCH (09:00)
[2018-02-19] MEDS: CARVEDILOL 6.25 MG TABLET PO SCH ×2 (09:00→21:00)
[2018-02-19] MEDS ORDERED: IODIXANOL 320MG/ML 100 ML BOTTLE IV ONE ×2 (12:22→13:40)
[2018-02-19] MEDS ORDERED: LIDOCAINE HCL 1% 20ML VIAL (Pyxis) INJ ONE (12:22)
[2018-02-19] MEDS ORDERED: MIDAZOLAM HCL 2 MG/2 ML VIAL ONE (13:06)
[2018-02-19] MEDS ORDERED: FENTANYL CITRATE/PF 50MCG/ML 2ML VIAL ONE (13:06)
[2018-02-19] MEDS ORDERED: IOHEXOL-300 100 ML BOTTLE ONE (13:29)
[2018-02-19] MEDS ORDERED: ASPIRIN 325MG TABLET ONE (13:48)
[2018-02-19] MEDS ORDERED: CLOPIDOGREL 75MG TABLET ONE ×2 (13:49→14:24)
[2018-02-19] MEDS ORDERED: HEPARIN SODIUM 1,000 UNIT/1ML VIAL IV ONE (13:59)
[2018-02-19] MEDS ORDERED: NICARDIPINE 100MCG/ML 10ML VIAL (CATH LAB) IV ONE (14:04)
[2018-02-19] MEDS ORDERED: NITROGLYCERIN 50MCG/ML 10ML VIAL (CATH LAB) IV ONE (14:04)
[2018-02-19] MEDS ORDERED: ATROPINE SULFATE 1MG/10ML SYR IV PRN (14:15)
[2018-02-19] MEDS ORDERED: ACETAMINOPHEN 325MG TABLET PO PRN (14:15)
[2018-02-19] MEDS: IPRATROPIUM/ALBUTEROL 0.5-3(2.5)MG/3ML NEB INH PRN (20:41)
[2018-02-19] MEDS: ATORVASTATIN CALCIUM 40MG TABLET PO SCH (21:03)
[2018-02-20] VITALS (12 sets, daily range): BP systolic 93–123; BP diastolic 58–87
[2018-02-20] MEDS: IPRATROPIUM BROMIDE (0.02%) 0.5MG/2.5ML NEB HHN SCH ×3 (01:05→13:49)
[2018-02-20] MEDS: NITROGLYCERIN OINT 1GM/INCH UDPKT TD SCH ×2 (06:00→14:00)
[2018-02-20] MEDS: CLOPIDOGREL 75MG TABLET PO SCH (08:18)
[2018-02-20] MEDS: ASPIRIN 325MG TABLET PO SCH (08:18)
[2018-02-20] MEDS: CARVEDILOL 6.25 MG TABLET PO SCH (08:18)
[2018-02-20 08:32] LABS: EOSINOPHILS % 3.5 % (0.0-5.0); HEMATOCRIT. 35.4 % (36.0-48.0); HEMOGLOBIN. 10.3 g/dL (12.0-16.0); LYMPHOCYTES % 16.8 % (20.0-50.0); MEAN CORPUSCULAR HEMOGLOBIN 21.5 pg (28.0-32.0); MEAN CORPUSCULAR VOLUME 73.5 fL (81.0-99.0); MEAN PLATELET VOLUME 8.5 fl (7.4-10.4); MONOCYTES % 11.9 % (2.0-8.0); NEUTROPHILS % 66.8 % (40.0-76.0); PLATELET 252 x1000/uL (130-400); RED BLOOD CELL COUNT 4.81 mill/uL (4.2-5.4); RED CELL DISTRIBUTION WIDTH 28.1 % (11.6-14.6)
[2018-02-20] MEDS ORDERED: CLOPIDOGREL 75MG TABLET PO SCH (09:00)
[2018-02-20] MEDS ORDERED: ASPIRIN 325MG TABLET PO SCH (09:00)
== END 2018-02-20 20:33 | DRG 246 ==
LOC: ER 12:40 → 8WST 13:11 → EDBEDREQ 13:20 → EDBEDREQTM 13:20 → ENRESERV 13:43 → 3WST 02-17 10:43
PROVIDERS: ADMIT Hospitalist; ATTEND Hospitalist
PROC: 5A1D70Z Performance of Urinary Filtration, Intermittent, Less than 6 Hours Per Day (ICD-10-PCS; 2018-02-15)
PROC: 5A1D70Z Performance of Urinary Filtration, Intermittent, Less than 6 Hours Per Day (ICD-10-PCS; 2018-02-17)
PROC: 4A023N7 Measurement of Cardiac Sampling and Pressure, Left Heart, Percutaneous Approach (ICD-10-PCS; principal; 2018-02-19)
PROC: 027034Z Dilation of Coronary Artery, One Artery with Drug-eluting Intraluminal Device, Percutaneous Approach (ICD-10-PCS; 2018-02-19)
PROC: B211YZZ Fluoroscopy of Multiple Coronary Arteries using Other Contrast (ICD-10-PCS; 2018-02-19)
PROC: 5A1D70Z Performance of Urinary Filtration, Intermittent, Less than 6 Hours Per Day (ICD-10-PCS; 2018-02-19)
DX: T82.855A Stenosis of coronary artery stent, initial encounter (principal); A41.9 Sepsis, unspecified organism; N18.6 End stage renal disease; I50.33 Acute on chronic diastolic (congestive) heart failure; J96.20 Acute and chronic respiratory failure, unspecified whether with hypoxia or hypercapnia; I21.4 Non-ST elevation (NSTEMI) myocardial infarction; E43 Unspecified severe protein-calorie malnutrition; J44.1 Chronic obstructive pulmonary disease with (acute) exacerbation; I13.2 Hypertensive heart and chronic kidney disease with heart failure and with stage 5 chronic kidney disease, or end stage renal disease; N25.81 Secondary hyperparathyroidism of renal origin; I47.1 Supraventricular tachycardia; J84.9 Interstitial pulmonary disease, unspecified; T82.867A Thrombosis due to cardiac prosthetic devices, implants and grafts, initial encounter; Z99.2 Dependence on renal dialysis; D64.9 Anemia, unspecified; E05.20 Thyrotoxicosis with toxic multinodular goiter without thyrotoxic crisis or storm; E78.5 Hyperlipidemia, unspecified; G40.909 Epilepsy, unspecified, not intractable, without status epilepticus; I25.10 Atherosclerotic heart disease of native coronary artery without angina pectoris; I25.5 Ischemic cardiomyopathy; E03.9 Hypothyroidism, unspecified; E04.9 Nontoxic goiter, unspecified; K57.90 Diverticulosis of intestine, part unspecified, without perforation or abscess without bleeding; H10.409 Unspecified chronic conjunctivitis, unspecified eye; I27.20 Pulmonary hypertension, unspecified; I48.91 Unspecified atrial fibrillation; I73.9 Peripheral vascular disease, unspecified; K21.9 Gastro-esophageal reflux disease without esophagitis; Z79.02 Long term (current) use of antithrombotics/antiplatelets; Z86.718 Personal history of other venous thrombosis and embolism; Z86.73 Personal history of transient ischemic attack (TIA), and cerebral infarction without residual deficits; Z95.820 Peripheral vascular angioplasty status with implants and grafts; Z89.432 Acquired absence of left foot; Z95.5 Presence of coronary angioplasty implant and graft; Z98.1 Arthrodesis status; Z99.81 Dependence on supplemental oxygen; Z79.82 Long term (current) use of aspirin; Z79.899 Other long term (current) drug therapy; Y83.1 Surgical operation with implant of artificial internal device as the cause of abnormal reaction of the patient, or of later complication, without mention of misadventure at the time of the procedure; Y92.89 Other specified places as the place of occurrence of the external cause; I25.2 Old myocardial infarction; Z68.20 Body mass index [BMI] 20.0-20.9, adult
CPT/HCPCS: 36415; 71045; 80048; 80053; 83735; 83880; 84484; 85025; 85347; 85610; 92928; 93005; 93306; 93454; 94640; 97162; 99291; C1725; C1760; C1769; C1874; C1887; C1893; J1644; J1650; J2250; J2270; J3010; J3490; J7030; J7040; J7620; J7626; Q9967

== ENCOUNTER 2018-03-20 09:04 | Inpatient (IN) | payer MEDICARE, MEDICAID ==
[~2018-03-20] VITALS: Ht 160 cm; Wt 54.7 kg
[2018-03-20] MEDS ORDERED: IPRATROPIUM BROMIDE (0.02%) 0.5MG/2.5ML NEB HHN STA (09:54)
[2018-03-20] MEDS ORDERED: METHYLPREDNISOLONE SOD SUCC 125 MG/2 ML VIAL IV STA (09:54)
[2018-03-20] MEDS ORDERED: ALBUTEROL (0.083%) 2.5MG/3ML NEB HHN STA (09:54)
[2018-03-20 09:59] LABS: BASOPHILS % 0.5 % (0.0-2.0); HEMOGLOBIN. 11.2 g/dL (12.0-16.0); LYMPHOCYTES % 10.7 % (20.0-50.0); MEAN CORPUSCULAR VOLUME 80.5 fL (81.0-99.0); MEAN PLATELET VOLUME 8.7 fl (7.4-10.4); MONOCYTES % 7.4 % (2.0-8.0); NEUTROPHILS % 81.4 % (40.0-76.0); PLATELET 167 x1000/uL (130-400); RED BLOOD CELL COUNT 4.47 mill/uL (4.2-5.4); RED CELL DISTRIBUTION WIDTH 25.5 % (11.6-14.6)
[2018-03-20 10:10] LABS: CHLORIDE 97 mEq/L (98-107)
[2018-03-20 10:17] LABS: BG BASE EXCESS 2.5 mmol/L (-2.0-2.0); BG BILEVEL POS AIRWAY PRESSURE 15/5; BG CARBOXYHEMOGLOBIN 1.4 % (0.5-1.5); BG DEOXYHEMOGLOBIN 2.1 % (0.0-5.0); BG FRACTION INSPIRED OXYGEN 55; BG HCO3 ACT 29.1 mmol/L (22.0-26.0); BG METHEMOGLOBIN 0.3 % (0.0-1.5); BG OXYGEN SATURATION 97.9 % (92.0-98.5); BG OXYHEMOGLOBIN 96.2 % (94.0-97.0); BG PCO2 54.7 mmHg (35.0-45.0); BG PH 7.344 (7.350-7.450); BG PO2 110.9 mmHg (75.0-100.0); BG SAMPLE SITE RIGHT RADIAL; BG TOTAL HEMOGLOBIN 11.6 g/dL (12.0-18.0); BG VENT MODE MASK - BIPAP
[2018-03-20 10:18] LABS: PLATELET ESTIMATE NORMAL
[2018-03-20] MEDS ORDERED: ASPIRIN 325MG EC TABLET PO ONE (10:30)
[2018-03-20] MEDS ORDERED: IPRATROPIUM/ALBUTEROL 0.5-3(2.5)MG/3ML NEB HHN PRN (12:30)
[2018-03-20] MEDS ORDERED: LIDOCAINE HCL/PF 1% 2ML VIAL ONE (13:19)
[2018-03-20] MEDS ORDERED: DOCUSATE SODIUM 100MG CAPSULE PO PRN (13:45)
[2018-03-20] MEDS ORDERED: DIPHENHYDRAMINE 50MG/ML VIAL IV PRN (13:45)
[2018-03-20] MEDS ORDERED: ONDANSETRON HCL 4MG/2ML INJ IV PRN (13:45)
[2018-03-20] MEDS ORDERED: ACETAMINOPHEN 325MG TABLET PO PRN (13:45)
[2018-03-20] MEDS ORDERED: CLONIDINE 0.1MG TABLET PO PRN (13:45)
[2018-03-20] MEDS ORDERED: GUAIFENESIN 200MG/10ML SUGAR FREE UDC PO PRN (13:45)
[2018-03-20] MEDS ORDERED: NA PHOS,M-B/NA PHOS,DI-BA ENEMA 118ML PR PRN (13:45)
[2018-03-20] MEDS ORDERED: MAGNESIUM/ALUMINUM HYDROXIDE/SIMETHICONE 30ML UDC PO PRN (13:45)
[2018-03-20 16:15] VITALS: BP 160/106
[2018-03-20] MEDS: METHYLPREDNISOLONE SOD SUCC 40 MG/ML VIAL IV SCH (17:06)
[2018-03-20] MEDS: ENOXAPARIN 30MG/0.3ML SYR SUBCUT SCH (17:06)
[2018-03-20 18:00] VITALS: BP 126/77
[2018-03-20 20:00] VITALS: BP 125/73
[2018-03-20 20:44] LABS: CREATINE KINASE MB FRACTION 2.8 ng/mL (0.5-3.6)
[2018-03-20] MEDS: IPRATROPIUM/ALBUTEROL 0.5-3(2.5)MG/3ML NEB HHN SCH (20:44)
[2018-03-20 22:00] VITALS: BP 119/68
[2018-03-21] VITALS (12 sets, daily range): BP systolic 91–159; BP diastolic 55–81
[2018-03-21] MEDS: IPRATROPIUM/ALBUTEROL 0.5-3(2.5)MG/3ML NEB HHN SCH ×6 (00:08→20:52)
[2018-03-21] MEDS: METHYLPREDNISOLONE SOD SUCC 40 MG/ML VIAL IV SCH ×4 (02:00→17:24)
[2018-03-21] MEDS: HYDROCODONE/ACETAMINOPHEN 5/325MG TABLET PO PRN (03:46)
[2018-03-21 06:55] LABS: BASOPHILS % 0.4 % (0.0-2.0); HEMATOCRIT. 35.5 % (36.0-48.0); HEMOGLOBIN. 10.7 g/dL (12.0-16.0); LYMPHOCYTES % 7.1 % (20.0-50.0); MEAN CORPUSCULAR HEMOGLOBIN 24.7 pg (28.0-32.0); MEAN CORPUSCULAR VOLUME 81.7 fL (81.0-99.0); MEAN PLATELET VOLUME 9.1 fl (7.4-10.4); MONOCYTES % 7.3 % (2.0-8.0); NEUTROPHILS % 85.2 % (40.0-76.0); PLATELET 165 x1000/uL (130-400); RED BLOOD CELL COUNT 4.34 mill/uL (4.2-5.4); RED CELL DISTRIBUTION WIDTH 26.4 % (11.6-14.6)
[2018-03-21 07:20] LABS: CHLORIDE 106 mEq/L (98-107)
[2018-03-21 07:30] LABS: CREATINE KINASE MB FRACTION 2.6 ng/mL (0.5-3.6)
[2018-03-21 07:32] LABS: HDL CHOLESTEROL 74 mg/dL (40-59); LDL CHOLESTEROL 44 mg/dL (5-100); T4 FREE 0.97 ng/dL (0.76-1.46)
[2018-03-21] MEDS: CLOPIDOGREL 75MG TABLET PO SCH (08:26)
[2018-03-21 10:19] LABS: BG BASE EXCESS 1.8 mmol/L (-2.0-2.0); BG CARBOXYHEMOGLOBIN 0.8 % (0.5-1.5); BG DEOXYHEMOGLOBIN 2.6 % (0.0-5.0); BG FRACTION INSPIRED OXYGEN 40; BG HCO3 ACT 28.1 mmol/L (22.0-26.0); BG METHEMOGLOBIN 0.4 % (0.0-1.5); BG OXYGEN SATURATION 97.4 % (92.0-98.5); BG OXYHEMOGLOBIN 96.2 % (94.0-97.0); BG PCO2 52.4 mmHg (35.0-45.0); BG PH 7.348 (7.350-7.450); BG SAMPLE SITE RIGHT BRACHIAL; BG TOTAL HEMOGLOBIN 11.1 g/dL (12.0-18.0); BG VENT MODE NASAL CANNULA
[2018-03-21 10:48] LABS: T4 FREE 0.99 ng/dL (0.76-1.46)
[2018-03-21] MEDS: ENOXAPARIN 30MG/0.3ML SYR SUBCUT SCH (17:25)
[2018-03-21 20:29] LABS: CREATINE KINASE MB FRACTION 3.7 ng/mL (0.5-3.6)
[2018-03-21] MEDS: DIPHENHYDRAMINE 25MG CAPSULE PO PRN (21:30)
[2018-03-22] VITALS (12 sets, daily range): BP systolic 87–158; BP diastolic 40–107
[2018-03-22] MEDS: IPRATROPIUM/ALBUTEROL 0.5-3(2.5)MG/3ML NEB HHN SCH ×6 (00:08→21:01)
[2018-03-22] MEDS: METHYLPREDNISOLONE SOD SUCC 40 MG/ML VIAL IV SCH ×2 (02:00→09:36)
[2018-03-22 03:51] LABS: BASOPHILS % 0.6 % (0.0-2.0); EOSINOPHILS % 0.1 % (0.0-5.0); LYMPHOCYTES % 8.5 % (20.0-50.0); MEAN CORPUSCULAR HEMOGLOBIN 24.8 pg (28.0-32.0); MEAN CORPUSCULAR VOLUME 81.2 fL (81.0-99.0); MEAN PLATELET VOLUME 8.8 fl (7.4-10.4); MONOCYTES % 4.5 % (2.0-8.0); NEUTROPHILS % 86.3 % (40.0-76.0); PLATELET 195 x1000/uL (130-400); RED BLOOD CELL COUNT 4.44 mill/uL (4.2-5.4)
[2018-03-22 04:31] LABS: CREATINE KINASE MB FRACTION 3.8 ng/mL (0.5-3.6)
[2018-03-22] MEDS: ASPIRIN 81MG TABLET PO SCH (08:16)
[2018-03-22] MEDS: CLOPIDOGREL 75MG TABLET PO SCH (08:16)
[2018-03-22 08:54] LABS: BG BASE EXCESS 3.2 mmol/L (-2.0-2.0); BG CARBOXYHEMOGLOBIN 1.5 % (0.5-1.5); BG DEOXYHEMOGLOBIN 3.5 % (0.0-5.0); BG FRACTION INSPIRED OXYGEN 32; BG HCO3 ACT 29.5 mmol/L (22.0-26.0); BG METHEMOGLOBIN 0.1 % (0.0-1.5); BG OXYGEN SATURATION 96.4 % (92.0-98.5); BG OXYHEMOGLOBIN 94.9 % (94.0-97.0); BG PCO2 53.2 mmHg (35.0-45.0); BG PH 7.362 (7.350-7.450); BG PO2 87.5 mmHg (75.0-100.0); BG SAMPLE SITE RIGHT BRACHIAL; BG TOTAL HEMOGLOBIN 11.4 g/dL (12.0-18.0); BG VENT MODE NASAL CANNULA
[2018-03-22] MEDS: PREDNISONE 20MG TABLET PO SCH (17:05)
[2018-03-22] MEDS: ENOXAPARIN 30MG/0.3ML SYR SUBCUT SCH (17:05)
[2018-03-22 18:21] LABS: CREATINE KINASE MB FRACTION 4.3 ng/mL (0.5-3.6)
[2018-03-22] MEDS: DIPHENHYDRAMINE 25MG CAPSULE PO PRN (20:46)
[2018-03-22] MEDS: BUDESONIDE 0.5MG/2ML NEB HHN SCH (21:01)
[2018-03-22] MEDS: HYDROCODONE/ACETAMINOPHEN 5/325MG TABLET PO PRN (22:43)
[2018-03-23] VITALS (11 sets, daily range): BP systolic 93–157; BP diastolic 50–98
[2018-03-23] MEDS: IPRATROPIUM/ALBUTEROL 0.5-3(2.5)MG/3ML NEB HHN SCH ×5 (00:58→19:45)
[2018-03-23] MEDS: DIPHENHYDRAMINE 25MG CAPSULE PO PRN (02:21)
[2018-03-23] MEDS: HYDROCODONE/ACETAMINOPHEN 5/325MG TABLET PO PRN (03:55)
[2018-03-23] MEDS: BUDESONIDE 0.5MG/2ML NEB HHN SCH ×2 (07:19→19:46)
[2018-03-23 08:52] LABS: BASOPHILS % 0.4 % (0.0-2.0); HEMATOCRIT. 35.7 % (36.0-48.0); LYMPHOCYTES % 15.4 % (20.0-50.0); MEAN CORPUSCULAR HEMOGLOBIN 25.2 pg (28.0-32.0); MEAN CORPUSCULAR VOLUME 81.6 fL (81.0-99.0); MEAN PLATELET VOLUME 9.3 fl (7.4-10.4); MONOCYTES % 8.6 % (2.0-8.0); NEUTROPHILS % 75.6 % (40.0-76.0); PLATELET 205 x1000/uL (130-400); RED BLOOD CELL COUNT 4.38 mill/uL (4.2-5.4); RED CELL DISTRIBUTION WIDTH 25.8 % (11.6-14.6)
[2018-03-23] MEDS: CLOPIDOGREL 75MG TABLET PO SCH (09:00)
[2018-03-23] MEDS: PREDNISONE 20MG TABLET PO SCH ×2 (09:00→17:02)
[2018-03-23] MEDS: ASPIRIN 81MG TABLET PO SCH (09:00)
[2018-03-23] MEDS: ENOXAPARIN 30MG/0.3ML SYR SUBCUT SCH (17:02)
[2018-03-24] VITALS (14 sets, daily range): BP systolic 84–136; BP diastolic 34–89
[2018-03-24] MEDS: IPRATROPIUM/ALBUTEROL 0.5-3(2.5)MG/3ML NEB HHN SCH ×5 (00:03→15:45)
[2018-03-24 07:09] LABS: BASOPHILS % 0.4 % (0.0-2.0); EOSINOPHILS % 0.1 % (0.0-5.0); HEMATOCRIT. 37.6 % (36.0-48.0); HEMOGLOBIN. 11.7 g/dL (12.0-16.0); LYMPHOCYTES % 11.1 % (20.0-50.0); MEAN CORPUSCULAR HEMOGLOBIN 25.2 pg (28.0-32.0); MEAN PLATELET VOLUME 9.2 fl (7.4-10.4); MONOCYTES % 5.3 % (2.0-8.0); NEUTROPHILS % 83.1 % (40.0-76.0); PLATELET 208 x1000/uL (130-400); RED BLOOD CELL COUNT 4.64 mill/uL (4.2-5.4); RED CELL DISTRIBUTION WIDTH 25.6 % (11.6-14.6)
[2018-03-24] MEDS: CLOPIDOGREL 75MG TABLET PO SCH (08:50)
[2018-03-24] MEDS: PREDNISONE 20MG TABLET PO SCH (08:50)
[2018-03-24] MEDS: ASPIRIN 81MG TABLET PO SCH (08:50)
[2018-03-24] MEDS: BUDESONIDE 0.5MG/2ML NEB HHN SCH (09:30)
== END 2018-03-24 17:00 | DRG 291 ==
LOC: ER 09:04 → 3WST 10:47 → EDBEDREQ 10:49 → EDBEDREQTM 10:49 → EDBEDREQSVC 10:49 → ENRESERV 14:26
PROVIDERS: ADMIT Hospitalist; ATTEND Hospitalist
PROC: 5A09357 Assistance with Respiratory Ventilation, Less than 24 Consecutive Hours, Continuous Positive Airway Pressure (ICD-10-PCS; principal; 2018-03-20)
PROC: 5A1D70Z Performance of Urinary Filtration, Intermittent, Less than 6 Hours Per Day (ICD-10-PCS; 2018-03-20)
PROC: 5A09357 Assistance with Respiratory Ventilation, Less than 24 Consecutive Hours, Continuous Positive Airway Pressure (ICD-10-PCS; 2018-03-21)
PROC: 5A1D70Z Performance of Urinary Filtration, Intermittent, Less than 6 Hours Per Day (ICD-10-PCS; 2018-03-21)
PROC: 5A09357 Assistance with Respiratory Ventilation, Less than 24 Consecutive Hours, Continuous Positive Airway Pressure (ICD-10-PCS; 2018-03-22)
PROC: 5A1D70Z Performance of Urinary Filtration, Intermittent, Less than 6 Hours Per Day (ICD-10-PCS; 2018-03-22)
PROC: 5A09357 Assistance with Respiratory Ventilation, Less than 24 Consecutive Hours, Continuous Positive Airway Pressure (ICD-10-PCS; 2018-03-24)
DX: I13.2 Hypertensive heart and chronic kidney disease with heart failure and with stage 5 chronic kidney disease, or end stage renal disease (principal); I50.33 Acute on chronic diastolic (congestive) heart failure; J96.20 Acute and chronic respiratory failure, unspecified whether with hypoxia or hypercapnia; N18.6 End stage renal disease; E43 Unspecified severe protein-calorie malnutrition; J44.1 Chronic obstructive pulmonary disease with (acute) exacerbation; N25.81 Secondary hyperparathyroidism of renal origin; K21.9 Gastro-esophageal reflux disease without esophagitis; I27.20 Pulmonary hypertension, unspecified; D64.9 Anemia, unspecified; G40.909 Epilepsy, unspecified, not intractable, without status epilepticus; H10.9 Unspecified conjunctivitis; E05.20 Thyrotoxicosis with toxic multinodular goiter without thyrotoxic crisis or storm; I25.10 Atherosclerotic heart disease of native coronary artery without angina pectoris; I25.2 Old myocardial infarction; I48.91 Unspecified atrial fibrillation; K29.70 Gastritis, unspecified, without bleeding; Z98.1 Arthrodesis status; Z99.2 Dependence on renal dialysis; Z99.81 Dependence on supplemental oxygen; Z95.820 Peripheral vascular angioplasty status with implants and grafts; Z95.5 Presence of coronary angioplasty implant and graft; Z89.432 Acquired absence of left foot; Z86.73 Personal history of transient ischemic attack (TIA), and cerebral infarction without residual deficits; Z86.718 Personal history of other venous thrombosis and embolism; Z82.5 Family history of asthma and other chronic lower respiratory diseases; Z68.21 Body mass index [BMI] 21.0-21.9, adult; K57.90 Diverticulosis of intestine, part unspecified, without perforation or abscess without bleeding; Z86.74 Personal history of sudden cardiac arrest; Z89.431 Acquired absence of right foot
CPT/HCPCS: 36415; 36600; 71045; 80048; 80061; 82375; 82550; 82553; 82805; 82962; 83036; 83880; 84134; 84439; 84443; 84484; 85379; 86850; 86900; 87804; 93005; 93306; 96374; 99291; J1650; J2920; J2930; J3490; J7030; J7512; J7611; J7620; J7626; Q0163